=== PATIENT | female | born 1965 | race Caucasian/White ===

== ENCOUNTER → 2020-05-27 08:21 | Outpatient (CLI) | payer OTHER, SELFPAY ==
--- NOTE | ~2020-05-27 | MMUS_ITS ---
EXAMINATION: MM diagnostic coleman BI w erna, US breast BI complete HISTORY: Bilateral breast pain TECHNIQUE: ML, MLO and cc 3-D tomosynthesis images of both breasts were performed and synthetic 2-D i mages were generated. CAD analysis was submitted and interpreted. High resolution bilateral complete breast ultrasound was performed. COMPARISON: 02/27/2019, 02/22/2018, 02/12/2017 and 02/16/2016 bilateral digital screening mammogram exami nations BREAST PARENCHYMAL COMPOSITION: The breasts are heterogeneously dense, which may obscure small masses . FINDINGS: MAMMOGRAPHIC FINDINGS: No interval suspicious mass, architectural distortion, malignant calcification, skin thickening or re traction or significant new or developing density is evident. There are occasional bilateral benign c alcifications. ULTRASOUND: Right breast: No suspicious mass or shadowing is evident. Left breast: 5:00 4 cm from nipple: 3 x 5.5 x 6.4 mm sonolucency, without internal vascularity or posterior shadow ing 6:00 5 cm from nipple: Parallel circumscribed sonolucency measuring 1.5 x 4.6 x 4.9 mm. IMPRESSION: 1. No mammographic or sonographic evidence of malignancy 2. Routine mammographic screening is recommended. BI-RADS Category 2: Benign finding(s). Reviewed, dictated and finalized at location A. IMPRESSION: 1. No mammographic or sonographic evidence of malignancy 2. Routine mammographic screening is recommended. BI-RADS Category 2: Benign finding(s).
--- NOTE | ~2020-05-27 | DEXA_ITS ---
Bone Density Report Name: Cira Moreland Age: 54 Sex: Female Ethnicity: White Date of : 1965 Indication: postmenopausal; screening for osteoporosis; Referring Provider: JOHNNA, DAVID Study: Bone densitometry was performed. Exam Date: May 27, 2020 Accession number: [id number] Bone Density: Region BMD T-score Z-score Classification AP Spine (L1-L4) 0.997 -0.5 0.7 Normal Femoral Neck (Left) 0.831 -0.2 1.0 Normal Total Hip (Left) 1.087 1.2 2.0 Normal Femoral Neck (Right) 0.823 -0.2 0.9 Normal Total Hip (Right) 1.105 1.3 2.1 Normal Total Hip Mean 1.096 1.3 2.1 Normal World Health Organization criteria for BMD impression classify patients as: Normal (T-score at or above -1.0), Osteopenia (T-score between -1.0 and -2.5), or Osteoporosis (T-score at or below -2.5). 10-year Fracture Risk: FRAX not reported because: All T-scores for Spine Total, Hip Total, Femoral Neck at or above -1.0 Previous Exams: Region Exam Age BMD T-score BMD Change BMD Change Date g/cm2 vs Baseline vs Previous AP Spine(L1-L4) 05/27/2020 54 0.997 -0.5 -0.028* -0.012 02/12/2017 51 1.009 -0.3 -0.016 -0.016 12/17/2013 48 1.025 -0.2 Total Hip(Left) 05/27/2020 54 1.087 1.2 0.026 0.037* 02/12/2017 51 1.051 0.9 -0.011 -0.011 12/17/2013 48 1.061 1.0 Total Hip(Right) 05/27/2020 54 1.105 1.3 0.040* 0.083* 02/12/2017 51 1.022 0.7 -0.043* -0.043* 12/17/2013 48 1.064 1.0 *Denotes significance at 95% confidence level, LSC for AP Spine = 0.022 g/cm2, LSC for Total Hip = 0.027 g/cm2 Clinical Information Provided by Patient: Has used the following medications: Vitamin D Patient maximum height was 61.5 Menopause Age: 48 No regular weight bearing exercise Drinks caffeinated beverages Onset of menses at age 12 Number of children 2 Impression: The patient has normal bone mass. No significant bone loss was observed. Discussion: BONE DENSITY IS ABOVE THE MINIMUM DESIRABLE LEVEL AT ALL SKELETAL SITES TESTED. This patient?s bone mineral density is above the minimum desirable level (T-score -1.0 or better) at all sites measured. The patient should follow a healthful lifestyle (good nutrition with adequate calcium and vitamin D, and appropriate weight-bearing exercise). Follow-Up: Consider repeating this study in 5 years or soon
== END ==
PROVIDERS: Visit Provider Nurse Practitioner
DX: N64.4 Mastodynia (principal); Z78.0 Asymptomatic menopausal state
CPT/HCPCS: 76641; 77062; 77066; 77080; G0279

== ENCOUNTER 2020-09-27 12:09 | Outpatient (CLI) | payer OTHER, SELFPAY ==
--- NOTE | ~2020-09-27 | MR_ITS ---
EXAMINATION: MR brain/brain stem wo con DATE: 09/27/2020 13:05 INDICATION: Memory loss. Headache. TECHNIQUE: Magnetic resonance imaging (MRI) of the brain and brainstem was performed without intraven ous contrast. Sequences included sagittal and axial T1-weighted FSE, axial diffusion-weighted FS EPI, axial T2*-weighted GRE, axial T2-weighted FLAIR Propeller, and axial T2-weighted Propeller. Apparent diffusion coefficient (ADC) maps were created. COMPARISON: None. FINDINGS: There is no intracranial hemorrhage, acute infarction, or abnormal intracranial mass lesion . There are areas of nonspecific increased T2-weighted signal intensity in the cerebral white matter, which is within normal limits for the patient's age. The ventricles are normal in size. The paranasa l sinuses are clear. The orbits are normal. There is a trace right mastoid effusion. IMPRESSION: 1. Normal brain. Reviewed, dictated and finalized at location A. D TAX AUDITOR IMPRESSION: 1. Normal brain.
== END 2020-09-27 12:10 | disposition home or self-care (01) ==
PROVIDERS: PCP Physician Assistant; Visit Provider Physician Assistant
DX: R51.9 Headache, unspecified (principal); R41.3 Other amnesia
CPT/HCPCS: 70551

== ENCOUNTER → 2021-05-09 11:20 | Outpatient (CLI) | payer OTHER, SELFPAY ==
--- NOTE | ~2021-05-09 | XR_ITS ---
EXAMINATION: XR chest 2V DATE: 05/09/2021 11:31 INDICATION: Wheezing. TECHNIQUE: Frontal and lateral views of the chest were obtained. COMPARISON: None. FINDINGS: There is mild scarring in the peripheral upper lobes. No pleural effusion or pneumothorax. The heart size is normal. IMPRESSION: 1. Mild scarring in the upper lobes. Reviewed, dictated and finalized at location A.
== END ==
PROVIDERS: Visit Provider Physician Assistant
DX: R06.2 Wheezing (principal); R91.8 Other nonspecific abnormal finding of lung field
CPT/HCPCS: 71046

== ENCOUNTER 2021-07-28 13:10 | Outpatient (CLI) | payer OTHER, SELFPAY ==
--- NOTE | ~2021-07-28 | CT_ITS ---
EXAMINATION: CT diagnostic chest wo con DATE: 07/28/2021 13:39 INDICATION: Wheezing TECHNIQUE: Computed tomography (CT) of the chest was performed without intravenous contrast. The dose -length product (DLP) was 211.42 mGy-cm. Automated exposure control and iterative reconstruction tech nique were employed. COMPARISON: None FINDINGS: There is scarring and volume loss in the upper lobes. The lungs are free of acute opacities . There is no pleural effusion or pneumothorax. No pathologically enlarged thoracic lymph nodes are i dentified. The heart size is normal. There is a moderate-sized hiatal hernia. Calcified coronary cait ry atherosclerosis is noted. IMPRESSION: 1. Scarring and volume loss in the upper lobes without acute cardiopulmonary abnormality. Reviewed, dictated and finalized at location A. IMPRESSION: 1. Scarring and volume loss in the upper lobes without acute cardiopulmonary ab normality.
--- NOTE | ~2021-07-28 | XR_ITS ---
EXAMINATION: XR wrist LT min 3V EXAM DATE: 07/28/2021 13:37 INDICATION: Fell down 6 weeks ago, persistent left wrist pain. TECHNIQUE: Left wrist frontal, frontal with ulnar deviation, oblique and lateral projections obtained and reviewed. There is no prior study for comparison. FINDINGS: Left wrist scapholunate joint space is maintained. No sclerosis to suggest subacute fractur e. There are no acute fractures or dislocations identified. There is no subcutaneous gas. There babatunde ears to be a bandage overlying the wrist. There are no radiopaque foreign bodies. IMPRESSION: 1. Left wrist exam without acute osseous findings. Reviewed, dictated and finalized at location A.
== END 2021-07-28 13:11 | disposition home or self-care (01) ==
LOC: ANHIMG 13:17
PROVIDERS: PCP Physician Assistant; Visit Provider Physician Assistant
DX: R06.2 Wheezing (principal); K44.9 Diaphragmatic hernia without obstruction or gangrene; I25.10 Atherosclerotic heart disease of native coronary artery without angina pectoris; Z87.891 Personal history of nicotine dependence; M25.532 Pain in left wrist
CPT/HCPCS: 71250; 73110

== ENCOUNTER → 2022-08-06 10:00 | Outpatient (CLI) | payer OTHER, SELFPAY ==
--- NOTE | ~2022-08-06 | MM_ITS ---
EXAMINATION: MM screening coleman BI w erna HISTORY: Screening mammogram, family history of breast cancer in her mother. TECHNIQUE: Craniocaudal and mediolateral oblique 3-D tomosynthesis images were obtained and synthetic 2-D images were generated. CAD analysis was submitted and interpreted. COMPARISON: 05/27/2020, 02/27/2019, 02/22/2018 BREAST PARENCHYMAL COMPOSITION: The breasts are heterogeneously dense, which may obscure small masses . FINDINGS: No suspicious mass, calcification, or architectural distortion are identified in either sebas ast to suggest malignancy. There has been no suspicious interval change. IMPRESSION: 1. No mammographic evidence of malignancy. 2. Recommend routine screening mammography in one year. BI-RADS Category 1: Negative Reviewed, dictated and finalized at location A.
== END ==
PROVIDERS: PCP Obstetrics & Gynecology Gynecology; Visit Provider Obstetrics & Gynecology Gynecology
DX: Z12.31 Encounter for screening mammogram for malignant neoplasm of breast (principal)
CPT/HCPCS: 77063; 77067

== ENCOUNTER → 2023-09-05 11:59 | Outpatient (CLI) | payer OTHER, SELFPAY ==
--- NOTE | ~2023-09-05 | MM_ITS ---
EXAMINATION: MM screening coleman BI w erna HISTORY: Screening TECHNIQUE: Craniocaudal and mediolateral oblique 3-D tomosynthesis images were obtained and synthetic 2-D images were generated. CAD analysis was submitted and interpreted. COMPARISON: Comparison to multiple prior studies sequentially, with oldest reviewed study dated or/o h 05/2016. BREAST PARENCHYMAL COMPOSITION: Breast composed of scattered areas of fibroglandular density FINDINGS: Bilateral breast asymmetries are stable. There is no evidence of suspicious mass, calcifica tion, or architectural distortion to suggest malignancy in either breast. There has been no suspiciou s interval change. IMPRESSION: 1. No mammographic evidence of malignancy. 2. Recommend routine screening mammography in one year. BI-RADS Category 1: Negative Reviewed, dictated and finalized at location A. NT ACQUISITION SPECIALIST
== END ==
PROVIDERS: PCP Nurse Practitioner Family; Visit Provider Nurse Practitioner
DX: Z12.31 Encounter for screening mammogram for malignant neoplasm of breast (principal)
CPT/HCPCS: 77063; 77067

== ENCOUNTER → 2023-10-26 11:21 | Outpatient (CLI) | payer OTHER, SELFPAY ==
--- NOTE | ~2023-10-26 | DEXA_ITS ---
Bone Density Report Name: AMARILIS LUGO Age: 58 Sex: Female Ethnicity: White Date of : 1965 Indication: postmenopausal; screening for osteoporosis; height loss; Referring Provider: JOHNNA, DAVID Study: Bone densitometry was performed. Exam Date: October 26, 2023 Accession number: [id number] Bone Density: Region BMD T-score Z-score Classification AP Spine (L1-L4) 0.950 -0.9 0.6 Normal Femoral Neck (Left) 0.840 -0.1 1.2 Normal Total Hip (Left) 1.074 1.1 2.0 Normal Femoral Neck (Right) 0.830 -0.2 1.1 Normal Total Hip (Right) 1.084 1.2 2.1 Normal Total Hip Mean 1.079 1.2 2.1 Normal World Health Organization criteria for BMD impression classify patients as: Normal (T-score at or above -1.0), Osteopenia (T-score between -1.0 and -2.5), or Osteoporosis (T-score at or below -2.5). 10-year Fracture Risk: FRAX not reported because: All T-scores for Spine Total, Hip Total, Femoral Neck at or above -1.0 Previous Exams: Region Exam Age BMD T-score BMD Change BMD Change Date g/cm2 vs Baseline vs Previous AP Spine(L1-L4) 10/26/2023 58 0.950 -0.9 -0.075* -0.047* 05/27/2020 54 0.997 -0.5 -0.028* -0.012 02/12/2017 51 1.009 -0.3 -0.016 -0.016 12/17/2013 48 1.025 -0.2 Total Hip(Left) 10/26/2023 58 1.074 1.1 0.013 -0.014 05/27/2020 54 1.087 1.2 0.026 0.037* 02/12/2017 51 1.051 0.9 -0.011 -0.011 12/17/2013 48 1.061 1.0 Total Hip(Right) 10/26/2023 58 1.084 1.2 0.020 -0.021 05/27/2020 54 1.105 1.3 0.040* 0.083* 02/12/2017 51 1.022 0.7 -0.043* -0.043* 12/17/2013 48 1.064 1.0 *Denotes significance at 95% confidence level, LSC for AP Spine = 0.022 g/cm2, LSC for Total Hip = 0.027 g/cm2 Clinical Information Provided by Patient: Has used the following medications: Vitamin D Patient maximum height was 61.5 Menopause Age: 48 No regular weight bearing exercise Drinks caffeinated beverages Onset of menses at age 12 Number of children 2 Impression: The patient has normal bone mass. The BMD for the AP Spine(L1-L4) decreased, changing by -0.047 since the last DXA exam. Discussion: BONE DENSITY IS ABOVE THE MINIMUM DESIRABLE LEVEL AT ALL SKELETAL SITES TESTED. This patient?s bone mineral density is above the minimum desirable
== END ==
PROVIDERS: PCP Obstetrics & Gynecology Gynecology; Visit Provider Nurse Practitioner
DX: Z78.0 Asymptomatic menopausal state (principal)
CPT/HCPCS: 77080

== ENCOUNTER 2024-12-26 12:55 | Emergency (ER) | payer OTHER, SELFPAY ==
[2024-12-26 12:59] VITALS: BP 131/86; PULSE 67; RESP 16; TEMP 36.4; O2SAT 98
--- NOTE | 2024-12-26 13:49 | ED.SKABFB ---
HPI - Skin/Abscess/Foreign Bdy General Chief complaint: Skin/Abscess/Foreign Body Stated complaint: reaction to shingles shot? shot on Tuesday Time Seen by Provider: 12/26/24 13:49 Focused HPI: This is a 59 year old female that presents to the ER for rash. Reports she [facility] and got a pneumococcal pneumonia vaccine and second shingles vaccine in the left arm. Reports she has had swelling and pain since. Reports yesterday she started to develop a rash. GENERAL: Well-appearing, well-nourished, and in no acute distress. HEAD: Normocephalic, atraumatic. CHEST: Clear to auscultation. ?No respiratory distress. HEART: Regular rate and rhythm.? NEURO: ?Alert and oriented x3. Patient screened in triage and initial orders placed.? ?Additional care and disposition to be based upon?diagnostic testing and treatment. Related Data Allergies Allergy/AdvReac Type Severity Reaction Status Date / Time Penicillins Allergy Intermediate Swelling Verified 12/26/24 12:55 Review of Systems Review of Systems: All systems reviewed & are unremarkable except as noted in HPI and below PMFSH Past Medical History Medical History (Updated 12/26/24 @ 13:58 by Suzanne Patton PA-C) History of diabetes mellitus History of hypothyroidism History of hyperlipidemia History of hypertension Social History Social History (Updated 12/26/24 @ 13:56 by Suzanne Patton PA-C) Smoking status: Never smoker Exam Narrative: GENERAL: Well-appearing, well-nourished, and in no acute distress. HEAD: Normocephalic, atraumatic. EYES: EOMI. EXTREMITIES: Normal range of motion. No edema. SKIN: Warm, dry. Red, macular rash around the injection site NEURO: No focal deficits. Alert and oriented x3. PSYCH: Normal mood and affect Course Course Emergency Course: Patient agrees with plan of care Vital Signs Vital signs: Vital Signs Temperature 97.6 F 12/26/24 12:59 Pulse Rate 67 12/26/24 12:59 Respiratory Rate 16 12/26/24 12:59 Blood Pressure 131/86 12/26/24 12:59 Pulse Oximetry 98 12/26/24 12:59 Temperature 97.6 F 12/26/24 12:59 Pulse Rate 67 12/26/24 12:59 Respiratory Rate 16 12/26/24 12:59 Blood Pressure 131/86 12/26/24 12:59 Pulse Oximetry 98 12/26/24 12:59 MDM - Skin/Abscess/Foreign Bdy MDM Narrative Medical decision making narrative: patient presents the emergency department for rash to the left arm. She recently had her shingles vaccine as well as pneumococcal vaccine in this arm. At this time the reaction does appear to be more allergic. Will be treated as such. She was given symptoms /signs of it being shingles, I did send Valtrex to the pharmacy if she does develop these symptoms. Differential Diagnosis Differential diagnosis: Likely viral exanthem, urticaria, herpes zoster and allergic reaction to drug Critical Care Time Critical Care Time Critical Care Time: No Discharge Plan Discharge Clinical Impression: Rash and nonspecific skin eruption Patient Disposition: Home, Self-Care Condition: Stable Instructions: Acute Rash (ED) Additional Instructions: Return to the emergency department if you experience fever, severe pain, blistering lesions, or any other symptoms that are concerning to you Take a Pepcid and Zyrtec daily. Take steroid taper (methylprednisolone) as prescribed. Benadryl as needed for severe itching. If your rash started to look more like blisters/you have pain, extension of the rash into the arm start taking antiviral (Valacyclovir) Follow-up with your primary care doctor Patient Language: Hebrew Prescriptions: New methylprednisolone 4 mg tablets,dose pack See Rx Instructions .ROUTE .COMPLEX Qty: 21 0RF Rx Instructions: orally per package directions valacyclovir 1 gram tablet 1,000 mg PO Q8H 7 Days Qty: 21 0RF Follow-up/Referrals: Jyotsna Denise MD [Physician] -
--- OUTSIDE RECORDS SUMMARY | 2024-12-26 14:26 | XMS_ITS | Encounter Summary ---
Author Organization [facility] Healthcare Address [address] [place] [address] Care Team Providers Care Test Baker Name Role Phone Magdalena Roa CALL CENTER AGENT Primary Care Provider [phone] Encounter Details Date Type Department Care Team (Late st Contact Info) Description 12/26/2024 Telephone [facility] Medical [facility] Family Medicine [address] [place] [address] Magdalena Roa NP [address] [place] [address] Social History Tobacco Use Types Packs/Day Years Used Date Smoking Tobacco: Former Cigarettes Q uit: 09/17/2007 Smokeless Tobacco: Never Alcohol Use Standard Drinks/Week Comments Never 0 (1 standard drink = 0.6 oz pur e alcohol) AUDIT-C Answer Date Recorded Q1: How often do you have a drink containing alc ohol? Monthly or less 10/15/2024 Q2: How many drinks containi ng alcohol do you have on a typical day when you are drinking? 1 or 2 10/15/2024 Q3: How often do you have si x or more drinks on one occasion? Never 10/15/2024 PHQ-2 Answer Date Recorded PHQ-2 Total Score (If total score is 3 or more points, staff should administer the PHQ-9) 0 10/09/2024 Personal Safety Answer Date Recorded Have you ever been in or are you currently in a harmful physical or emotional relationship or is someone making you feel afraid or unsafe? 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 Will go to Emergency room or Urgent care to have looked at. DMARE FOREMAN documented in this encounter Plan of Treatment Not on file documented as of this encounter Visit Diagnoses Not on filedocumented in this encounter Care Teams Test Baker Relationship Specialty Start Date End Date Magdalena Roa NP [address] [place] [address] PCP - General Internal Medicine 02/04/23 documented as of this encounter
--- OUTSIDE RECORDS SUMMARY | 2024-12-26 14:26 | XMS_ITS | Encounter Summary ---
Author Organization [facility] Healthcare Address [address] [place] [address] Care Team Providers Care Culinary Arts Instructor Name Role Phone Magdalena Roa PULMONOLOGIST Primary Care Provider [phone] Encounter Details Date Type Department Care Team (Late st Contact Info) Description 12/25/2024 Telephone [facility] Medical Group Family Medicine [address] [place] [address] Magdalena Roa NP [address] [place] [address] Social History Tobacco Use Types [...] on file Legal Sex Female 4:52 AM MANAGER COLLEGE Gender Identity Not on file Sexual Orientation Not on file 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 file Not on file Not on file documented as of this encounter Ordered Prescriptions Prescription Sig Dispense Quantity Refills Last Filled Start Date End Date atorvastatin (LIPITOR) 80 mg tabletIndications:Ty pe 2 diabetes mellitus with hyperlipidemia (HCC) Take 0.5 tablets (40 mg total) by mouth daily 90 tablet 1 12/25/2024 documented in this encounter Miscellaneous Notes * Telephone Encounter - Rajani Cobb LPN - 12/25/2024 11:17 AM MANAGER COLLEGE Last fill 09/11/24 Last OV 10/09/24 Next OV 03/05/25 GER COLLEGE documented in this encounter Plan of Treatment Not on file documented as of this encounter Visit Diagnoses Diagnosis Type 2 diabetes mellitus with hyperlipidemia (HCC) documented in this encounter Discontinued Medications Medication Sig Discontinue Reason Start Date End Da te atorvastatin (LIPITOR) 80 mg tabletIndications:Type 2 diabetes mellitus with hyperlipidemia (HCC) Take 0.5 tablets (40 mg total) by mouth daily Reorder 09/11/2024 12/25/2024 documented as of this encounter Care Teams Culinary Arts Instructor Relationship Specialty Start Date End Date Magdalena Roa NP [address] [address] PCP - General Internal Medicine 02/04/23 documented as of this encounter
--- OUTSIDE RECORDS SUMMARY | 2024-12-26 14:26 | XMS_ITS | Encounter Summary ---
Author Organization [facility] Healthcare Address [address] [place] [address] Care Team Providers Care Plant Breeder Scientist Name Role Phone Magdalena Roa NP Primary Care Provider [phone] Encounter Details Date Type Department Care Team (Late st Contact Info) Description 12/24/2024 Results Follow-Up [facility] Neurology [address] [address] Michoacano Galindo MD [address] [place] [address] Social History Tobacco Use Types Packs/Day Years [...] on file Legal Sex Female 4:52 AM THORACIC MEDICINE SPECIALIST Gender Identity Not on file Sexual Orientation Not on file 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
--- OUTSIDE RECORDS SUMMARY | 2024-12-26 14:27 | XMS_ITS | Clinical Summary ---
Author [place] [facility] [place] [address] [facility] Address [facility] [place] [address] Care Team Providers Care Apparatus Cleaner Name Role Phone Magdalena Roa NP Primary Care Provider [phone] Allergies Active Allergy Reactions Criticality Noted Date Comments Venom-Honey Bee Other (See comments) Low 09/03/2024 Blood poisoning Latex Blisters High 10/15/2024 Naproxen Nausea & Vomiting Low 10/05/2024 Penicillins Swelling Medium 09/10/2020 Medications ergocalciferol (VITAMIN D) 50,000 unit capsule Take 1 capsule (50,000 Units total) by mouth once a week Active nitroglycerin (NITROSTAT) 0.[address] 1 tablet (0.4 mg total) under the tongue daily as needed for chest pain 30 tablet 1 024 Active levothyroxine (SYNTHROID) 50 mcg tabletIndications :Acquired hypothyroidism Take 1 tablet (50 mcg total) by mouth daily 90 tablet [address] (CYMBALTA) 60 mg capsuleIndication s:Anxiety Take 1 capsule (60 mg total) by mouth daily 90 capsule [address] (CYMBALTA) 30 mg capsuleIndication s:Anxiety Take 1 capsule (30 mg total) by mouth daily 90 capsule 1 024 Active ezetimibe (ZETIA) 10 mg tabletIndications :Type 2 diabetes mellitus with hyperlipidemia (HCC) Take 1 tablet (10 mg total) by mouth daily 90 tablet 1 11/12/2 024 Active sertraline (ZOLOFT) 25 mg tabletIndications :Anxiety Take 1 tablet (25 mg total) by mouth daily 024 2024 Active amLODIPine (NORVASC) 10 mg tablet Take 1 tablet (10 mg total) by mouth daily 90 tablet 3 025 2025 Active Ozempic 1 mg/dose (4 mg/3 mL) pen injector injectionIndicati ons:Type 2 diabetes mellitus with hyperlipidemia (HCC) INJECT 1MG UNDER THE SKIN EVERY 7 DAYS 3 mL Active atorvastatin (LIPITOR) 80 mg tabletIndications :Type 2 diabetes mellitus with hyperlipidemia (HCC) Take 0.5 tablets (40 mg total) by mouth daily 90 tablet 1 Active atorvastatin (LIPITOR) 80 mg tabletIndications :Type 2 diabetes mellitus with hyperlipidemia (HCC) Take 0.5 tablets (40 mg total) by mouth daily 90 tablet 1 024 2024 Discontinued(R eorder) amLODIPine (NORVASC) 2.5 mg tablet Take 2 tablets (5 mg total) by mouth daily 90 tablet 3 024 2024 Discontinued(R eorder) semaglutide (OZEMPIC) 1 mg/dose (4 mg/3 mL) pen injector injectionIndicati ons:type 2 diabetes mellitus Inject 1 mg under the skin every 7 days 3 mL 1 024 2024 Discontinued naproxen (NAPROSYN) 500 mg tablet TAKE 1 TABLET BY MOUTH TWICE DAILY NEEDED ON A FULL STOMACH OR WITH AN ANTACID 2024 Discontinued(T herapy completed) polyethylene glycol 236-22.74-6.74 -5.86 gram solution TAKE 4000 MLS BY MOUTH ONCE FOR 1 DOSE 2024 Discontinued(T herapy completed) ciprofloxacin (CIPRO) 500 mg tablet Take 1 tablet (500 mg total) by mouth 2 (two) times a day for 10 days 20 tablet 025 2024 Additional Information Patient not taking.Reported on 12/03/2024 Active Problems Problem Noted Date Diagnosed Date Abnormal CBC 10/10/2024 Overview (10/10/2024): Have lab work completed Screening for colon cancer 10/10/2024 Dysuria 10/09/2024 Overview (10/09/2024): no blood in urine. blood has cleared up. Cough with exposure to sever e acute respiratory syndrome coronavirus 2 (SARS-CoV-2) 10/09/2024 Eye swelling, left 09/11/2024 Echocardiogram abnormal 09/03/2024 Assessment & Plan (12/03/2024 12:01 PM COMMUNICABLE DISEASE SPECIALIST): Echocardiogram noted grade 2 LV diastolic dysfunction. Per last note by Dr. Hercules this was reviewed and appreciated to be more indeterminate. Will continue to work on risk factor reduction with weight loss and regular exercise. Assessment & Plan (09/03/2024 11:48 AM COMMUNICABLE DISEASE SPECIALIST): Echocardiogram noted grade 2 LV diastolic dysfunction. Per last note by Dr. Hercules this was reviewed and appreciated to be more indeterminate. Will continue to work on risk factor reduction with weight loss and regular exercise. CKD (chronic kidney disease) stage 3, GFR 30-59 ml/min 08/13/2024 HODGSON (dyspnea on exertion) 01/20/2024 Assessment & Plan (01/20/2024 10:43 AM CDT): Admits to shortness of breath with certain exertional activities such as walking up two flights of stairs. Unclear if this is an anginal equivalent. EKG today with low voltage. Cardiac risk factors include age, obesity, HTN, HLD, T2DM and smoking hx. In light of symptoms and cardiac risk factors will proceed with nuclear stress echo to evaluate for any structural abnormalities or ischemia. Uterovaginal prolapse 12/16/2023 Sensory urge incontinence 12/16/2023 Stress incontinence 12/16/2023 Moderate episode of recurrent major depressive d isorder 08/15/2023 Overview (08/15/2023): Continue Cymbalta 90 mg daily. Add Wellbutrin 75 mg twice daily for increase depression without SI or HI Hematuria 06/20/2023 Overview (06/20/2023): Hematuria has dissipated. Protein present in urine. You still have pressure in your suprapubic area. Take Cipro x3 days Type 2 diabetes mellitus with hyperlipidemia 04/2023 Weight loss 01/21/2022 Assessment & Plan (04/29/2022 7:17 AM CDT): Intentional. Encouraged continued attempts at heart healthy diet, exercise 4x/week for 30min each session. Assessment & Plan (01/21/2022 12:41 PM CDT): Congratulated on weight loss. Will increase Topamax to 50 mg twice daily. Encouraged continued attempts at a heart healthy diet, exercise 4 times per week for 30 minutes each session. Fatigue 05/08/2021 Assessment & Plan (05/08/2021 1:16 PM CDT): Fasting labs entered, will notify patient of results as available Chest pain 04/19/2021 Assessment & Plan (12/03/2024 12:02 PM COMMUNICABLE DISEASE SPECIALIST): Stress induced chest pain with a negative stress echo on 01/25/2024. She completed a trial with sublingual nitro with improvement in her chest pain. Transitioned to CCB last visit with improvement in frequency of chest pain. Increase Amlodipine to 10 mg daily. She will keep a blood pressure diary and we will touch base in 1-2 weeks to review. Assessment & Plan (09/03/2024 11:50 AM COMMUNICABLE DISEASE SPECIALIST): Stress induced chest pain with a negative stress echo on 01/25/2024. She completed a trial with sublingual nitro once with improvement in her chest pain. Will stop HCTZ and replacing with amlodipine 2.5 mg daily to assess for improvement in chest pain episodes. She will keep a blood pressure diary and we will touch base in 1-2 weeks to review results and symptoms. Will increase as tolerated. Assessment & Plan (01/27/2024 10:27 AM CDT): Atypical chest pain. EKG today with no ischemic findings. Cardiac risk factors include age, obesity, HTN, HLD, T2DM and smoking hx. In light of symptoms and cardiac risk factors will proceed with nuclear stress echo to evaluate for any structural abnormalities or ischemia. ADDENDUM: Negative stress echo for myocardial ischemia. BMI 29.0-29.9,adult 10/27/2020 Assessment & Plan (10/09/2024 11:42 AM COMMUNICABLE DISEASE SPECIALIST): Discussed the patient's BMI. The BMI is above average. BMI management plan is completed. BMI Follow-up includes: nutrition counseling, exercise counseling and education provided. Snoring 10/27/2020 Assessment & Plan (12/11/2024 9:57 AM COMMUNICABLE DISEASE SPECIALIST): The patient presents with snoring and daytime fatigue. Per her request, I have ordered a home sleep test and she will follow up here in 4 months. Assessment & Plan (10/27/2020 12:47 PM COMMUNICABLE DISEASE SPECIALIST): Will refer for sleep study Sleep disturbance 10/27/2020 Assessment & Plan (10/27/2020 12:47 PM COMMUNICABLE DISEASE SPECIALIST): Will refer for sleep study Breast cancer screening by mammogram 09/10/2020 Assessment & Plan (09/10/2020 11:38 AM COMMUNICABLE DISEASE SPECIALIST): Retrieve records from previous pcp. Hypothyroidism 09/10/2020 Assessment & Plan (04/29/2022 7:17 AM CDT): Continue medication same dosing at this time, refill as needed. Assessment & Plan (01/21/2022 12:40 PM CDT): Labs entered, continue medications the same time Assessment & Plan (05/08/2021 1:15 PM CDT): Fasting labs entered, will notify patient of results as available Assessment & Plan (10/27/2020 12:46 PM COMMUNICABLE DISEASE SPECIALIST): Will repeat labs, continue medication same at this time Assessment & Plan (09/10/2020 11:39 AM COMMUNICABLE DISEASE SPECIALIST): Fasting labs entered, will notify patient of results as available Continue medication same at this time. Vitamin D deficiency 09/10/2020 Assessment & Plan (10/27/2020 12:46 PM COMMUNICABLE DISEASE SPECIALIST): Will repeat labs, continue medication same at this time Assessment & Plan (09/10/2020 11:39 AM COMMUNICABLE DISEASE SPECIALIST): Fasting labs entered, will notify patient of results as available Continue medication same at this time. Hypertension associated with diabetes 09/10/2020 Overview (08/15/2023): Continue blood pressure medicine daily as directed Assessment & Plan (12/03/2024 12:00 PM COMMUNICABLE DISEASE SPECIALIST): Above goal at home. Increase Amlodipine to 10 mg daily. She will keep a blood pressure diary and we will touch base in 1-2 weeks to review. Assessment & Plan (09/03/2024 11:49 AM COMMUNICABLE DISEASE SPECIALIST): She will stop hydrochlorothiazide and we with replace with amlodipine for both blood pressure management and to assess for improvement in chest pain. She will keep a blood pressure diary and we will touch base in 1-2 weeks and adjust as needed. Assessment & Plan (01/20/2024 10:40 AM CDT): Slightly above goal. Well controlled at previous visits per review of her chart. Has not taken her anti-hypertensive medications this am. Admits to being a bit anxious about appointment. Continue hydrochlorothiazide 25 mg daily. Advised her to take her medications when she can. Assessment & Plan (04/29/2022 7:16 AM CDT): Patient advised to continue medications the same at this time. They will monitor home bp with goal 120-130/80s. Fasting labs entered, will notify patient of results as available Assessment & Plan (01/21/2022 12:40 PM CDT): Patient advised to continue medications the same at this time. They will monitor home bp with goal 120-130/80s. Fasting labs entered, will notify patient of results as available Assessment & Plan (09/10/2020 11:39 AM COMMUNICABLE DISEASE SPECIALIST): Fasting labs entered, will notify patient of results as available Continue medication same at this time. Hyperlipidemia 09/10/2020 Assessment & Plan (12/03/2024 12:00 PM COMMUNICABLE DISEASE SPECIALIST): Continue atorvastatin 80 mg daily and zetia 10 mg daily. Planning to repeat with PCP. Assessment & Plan (09/03/2024 11:47 AM COMMUNICABLE DISEASE SPECIALIST): Continue atorvastatin 80 mg daily. Assessment & Plan (01/20/2024 10:40 AM CDT): Managed by PCP. Continue Atorvastatin and Zetia. Assessment & Plan (04/29/2022 7:17 AM CDT): Advised patient to follow a heart healthy diet, low in red meat and pork, and increase veggies. Advised exercise 4x/week for 30min each session. Fasting labs entered, will notify patient of results as available Assessment & Plan (01/21/2022 12:40 PM CDT): Fasting labs entered, will notify patient of results as available Continue lipitor same at this time Encouraged heart healthy diet, exercise 4x/week for 30min each session Assessment & Plan (09/10/2020 11:39 AM COMMUNICABLE DISEASE SPECIALIST): Fasting labs entered, will notify patient of results as available Continue medication same at this time. Memory changes 09/10/2020 Assessment & Plan (10/03/2020 12:35 PM COMMUNICABLE DISEASE SPECIALIST): We reviewed recent normal mri of head. Advised referral to neurology for further evaluation and treatment. Assessment & Plan (09/10/2020 11:38 AM COMMUNICABLE DISEASE SPECIALIST): Will taper/discontinue wellbutrin. Will order mri of head to evaluate further. Chronic intractable headache 09/10/2020 Assessment & Plan (10/27/2020 12:46 PM COMMUNICABLE DISEASE SPECIALIST): Wants to hold/not schedule neuro referral at this time. Will continue medication the same. Will refer for sleep study. Assessment & Plan (10/03/2020 12:36 PM COMMUNICABLE DISEASE SPECIALIST): We reviewed recent normal mri of head. Advised referral to neurology for further evaluation and treatment. We discussed adding inderal or other daily medication for prevention, patient wants to start with changing the lexapro first. Assessment & Plan (09/10/2020 11:39 AM COMMUNICABLE DISEASE SPECIALIST): Will evaluate further with mri of head Anxiety 09/10/2020 Assessment & Plan (04/29/2022 7:16 AM CDT): We will increase her cymbalta to 90mg daily. She was advised to notify the office over the next 4w - if ineffective will try adding buspar tid. Assessment & Plan (12/10/2021 11:48 AM COMMUNICABLE DISEASE SPECIALIST): Continue with cymbalta 60mg daily Add bid/prn xanax - advised of potential addictiveness, she expressed understanding. We discussed changing cymbalta or adding buspar tid over the coming month if needing xanax routinely. Assessment & Plan (10/15/2021 3:24 PM COMMUNICABLE DISEASE SPECIALIST): Increase cymbalta from 60mg every day to 90mg every day Assessment & Plan (09/17/2021 1:37 PM COMMUNICABLE DISEASE SPECIALIST): Stable, continue meds same at this time Assessment & Plan (05/08/2021 1:17 PM CDT): Will increase cymbalta. Assessment & Plan (10/27/2020 12:46 PM COMMUNICABLE DISEASE SPECIALIST): Continue medication same Assessment & Plan (10/03/2020 12:37 PM COMMUNICABLE DISEASE SPECIALIST): Taper lexapro every other day x 6 days, then discontinue. Will start cymbalta when taper is finished. We discussed gi workup pending resolution of loose stools. Will also retrieve consult notes from previous pcp to determine date and results of last cscope. Assessment & Plan (09/10/2020 11:40 AM COMMUNICABLE DISEASE SPECIALIST): Taper wellbutrin 1 tab every other day x 3 days, then discontinue. Will start lexapro at that time. Resolved Problems Problem Noted Date Diagnosed Date Resolved Date Pre-op evaluation 01/20/2024 02/28/2024 Assessment & Plan (01/27/2024 10:29 AM CDT): Patient planning to undergo hysterectomy on 02/14/24. She presents with atypical chest pain as well as HODGSON with two flights of stairs. EKG today with no acute findings. Risk factors for CAD include age, obesity, HTN, HLD, T2DM and smoking hx. In light of symptoms and cardiac risk factors will proceed with nuclear stress echo to evaluate for any structural abnormalities or ischemia prior to surgical procedure. Will provide further recommendations following stress echo results. ADDENDUM: Negative stress echo for myocardial ischemia. Can perform > 4 METs Patient has a RCRI score of 0, Class I risk (3.9 % thirty day risk of , [place] or cardiac arrest). No further cardiac testing recommended at this time. BMI 31.0-31.9,adult 08/09/2022 02/05/20 23 Assessment & Plan (08/09/2022 8:53 AM CDT): Obesity is unchanged. Discussed the patient's BMI. The BMI is above average. BMI management plan is completed. BMI Follow-up includes: nutrition counseling, exercise counseling and education provided. Obesity (BMI 30-39.9) 08/09/20222023 Assessment & Plan (08/09/2022 8:53 AM CDT): Obesity is unchanged. Discussed the patient's BMI. The BMI is above average. BMI management plan is completed. BMI Follow-up includes: nutrition counseling, exercise counseling and education provided. [place] eye disease of left eye 06/14/2022 08/09/2022 Assessment & Plan (06/14/2022 12:29 PM CDT): Will initiate claritin and eye drops Advised f/u in next week if not improving, sooner if worsening or new symptoms develop. Advised her to not use contacts until this has resolved, and to use a new batch of contacts when resuming these. Subacute cough 02/08/2022 02/04/2023 Lower respiratory infection 02/08/2022 04/28/2022 Assessment & Plan (02/08/2022 5:08 PM CDT): Will initiate zpack and mdp She was encouraged to continue with advair bid and prn proventil hfa She was advised to contact the office if symptoms are not improving in the next 72h, sooner if worsening. Need for influenza vaccination 09/17/2021 01/21/2022 De Quervain's disease (radia l styloid tenosynovitis) 08/19/2021 08/09/2022 BMI 34.0-34.9,adult 07/28/2021 01/22/20 Assessment & Plan (10/15/2021 3:24 PM COMMUNICABLE DISEASE SPECIALIST): Increase metformin to 500mg bid Encouraged heart healthy diet, exercise 4x/week for 30min each session Assessment & Plan (07/28/2021 8:14 AM CDT): Obesity is unchanged. Discussed the patient's BMI. The BMI is above average. BMI management plan is completed. BMI Follow-up includes: nutrition counseling, exercise counseling and education provided. Wrist pain, left 07/28/2021 08/09/2022 Assessment & Plan (07/28/2021 12:51 PM CDT): Xray left wrist, will notify of results as available Wrapped in jasiel wrap today, will keep wrapped during the day, management further pending xray results She will use ibuprofen 600mg tid-qid prn pain Obesity (BMI 30-39.9) 05/08/20212021 Assessment & Plan (01/21/2022 12:41 PM CDT): Congratulated on weight loss. Will increase Topamax to 50 mg twice daily. Encouraged continued attempts at a heart healthy diet, exercise 4 times per week for 30 minutes each session. Assessment & Plan (12/10/2021 11:49 AM COMMUNICABLE DISEASE SPECIALIST): Discontinue metformin Will initiate topamax 25mg bid for appetite suppression. She was advised that this is an off label utilization and due to concurrent cymbalta she has a risk for serotonin syndrome. She expressed understanding and desire to proceed. She will f/u in 4w for weight management, sooner as needed. Assessment & Plan (10/15/2021 3:24 PM COMMUNICABLE DISEASE SPECIALIST): Increase metformin to 500mg bid Encouraged heart healthy diet, exercise 4x/week for 30min each session Assessment & Plan (09/17/2021 1:38 PM COMMUNICABLE DISEASE SPECIALIST): Obesity is unchanged. Discussed the patient's BMI. The BMI is above average. BMI management plan is completed. BMI Follow-up includes: nutrition counseling, exercise counseling and education provided. Will start on metformin bid low dose. Encouraged low antonio diet, exercise 4x/week for 30min each session. Discussed attempts at loss of 4lbs/mo. Assessment & Plan (07/28/2021 8:14 AM CDT): Obesity is unchanged. Discussed the patient's BMI. The BMI is above average. BMI management plan is completed. BMI Follow-up includes: nutrition counseling, exercise counseling and education provided. Assessment & Plan (06/16/2021 8:37 AM CDT): Obesity is unchanged. Discussed the patient's BMI. The BMI is above average. BMI management plan is completed. BMI Follow-up includes: nutrition counseling, exercise counseling and education provided. Assessment & Plan (05/08/2021 9:08 AM CDT): Obesity is unchanged. Discussed the patient's BMI. The BMI is above average. BMI management plan is completed. BMI Follow-up includes: nutrition counseling, exercise counseling and education provided. BMI 33.0-33.9,adult 05/08/2021 08/09/20 22 Assessment & Plan (04/29/2022 7:16 AM CDT): Discussed the patient's BMI. Continue with topamax bid, she declines increase at this time. The BMI is above average. BMI management plan is completed. BMI Follow-up includes: nutrition counseling, exercise counseling and education provided. Assessment & Plan (06/16/2021 8:37 AM CDT): Obesity is unchanged. Discussed the patient's BMI. The BMI is above average. BMI management plan is completed. BMI Follow-up includes: nutrition counseling, exercise counseling and education provided. Assessment & Plan (05/08/2021 9:08 AM CDT): Obesity is unchanged. Discussed the patient's BMI. The BMI is above average. BMI management plan is completed. BMI Follow-up includes: nutrition counseling, exercise counseling and education provided. Wheezing 05/08/2021 04/28/2022 Assessment & Plan (06/16/2021 6:02 PM CDT): We reviewed cxr Will order ct chest for further evaluation She declines pulm consult at this time She will continue to not smoke Add advair 250 1 puff bid routine Assessment & Plan (05/08/2021 1:16 PM CDT): Cxr, will notify of results as available Will start on proventil hfa. She was advised to notify office if not improving or if worsening over the coming week. Need for diphtheria-tetanus- pertussis (Tdap) vaccine 09/10/2020 01/21/2022 Assessment & Plan (09/10/2020 11:38 AM COMMUNICABLE DISEASE SPECIALIST): tdap today Encounters Date Type Department Care Team Description 12/26/2024 Telephone [facility] Family Medicine [address] [place] [address] [place] [phone] Magdalena Roa NP 12/25/2024 Telephone [facility] Medicine [address] [facility] [address] [place] [address] [place] [phone] Magdalena Roa NP 12/24/2024 Results Follow-Up [facility] Neurology [address] [place] [phone] Michoacano Galindo MD 12/22/2024 2:29 PM COMMUNICABLE DISEASE SPECIALIST - 12/22/2024 11:59 PM COMMUNICABLE DISEASE SPECIALIST Hospital Encounter [facility] MRI [address] [place] [address] Memory changes Discharge Disposition: Discharge to home or self care 12/11/2024 9:30 AM COMMUNICABLE DISEASE SPECIALIST Office Visit [facility] Pulmonary [address] [place] [phone] Eulogio Yost MD Poor sleep; Snoring 12/03/2024 11:00 AM COMMUNICABLE DISEASE SPECIALIST Office Visit [facility] Cardiology [facility] 8th [place] [address] [place] [phone] Nima Jacques NP Chest pain, unspecified type (Primary Dx); Hypertension associated with diabetes (HCC); Mixed hyperlipidemia; Echocardiogram abnormal 11/29/2024 3:00 PM COMMUNICABLE DISEASE SPECIALIST Clinical Support [facility] Medicine [address] [place] [address] [place] [phone] Dysuria (Primary Dx) 11/19/2024 Telephone [facility] Neurology [address] [place] [phone] Michoacano Galindo MD Test Results (RESULTS ) 11/16/2024 10:45 AM COMMUNICABLE DISEASE SPECIALIST Lab [facility] Medical Office [address] [place] [phone] Memory changes 11/16/2024 10:00 AM COMMUNICABLE DISEASE SPECIALIST Office Visit [facility] Neurology [address] [place] [phone] Michoacano Galindo MD Poor sleep (Primary Dx); Memory changes; Snoring 11/01/2024 Telephone [facility] Medicine [address] [place] [address] [place] [phone] Magdalena Roa NP Med Refill 10/15/2024 1:00 PM COMMUNICABLE DISEASE SPECIALIST - 10/15/2024 1:30 PM COMMUNICABLE DISEASE SPECIALIST Surgery [facility] GI Lab [address] [place] [phone] Deshaun West MD COLON BIOPSY 10/15/2024 12:52 PM COMMUNICABLE DISEASE SPECIALIST Anesthesia Event [facility] GI Lab [address] [place] [phone] Cheri Cardenas MD Cannon, James J., MD 10/15/2024 11:59 AM COMMUNICABLE DISEASE SPECIALIST - 10/15/2024 2:27 PM COMMUNICABLE DISEASE SPECIALIST Hospital Encounter [facility] GI Lab [address] [place] [phone] Deshaun West MD Screening for colon cancer Discharge Disposition: Discharge to home or self care 10/10/2024 Orders Only [facility] Gastroenterology at [place] [id number] [facility] [address] [place] [phone] Deshaun West MD Screening for colon cancer (Primary Dx) 10/09/2024 11:30 AM COMMUNICABLE DISEASE SPECIALIST Office Visit [facility] Internal Medicine at [place] [address] [place] [address] Rd [address] [place] [phone] Magdalena Roa NP Cough with exposure to severe acute respiratory syndrome coronavirus 2 (SARS-CoV-2) (Primary Dx); BMI 29.0-29.9,adult; Dysuria; Anxiety; Memory changes; Abnormal CBC 10/06/2024 12:54 AM COMMUNICABLE DISEASE SPECIALIST - 10/06/2024 2:30 AM COMMUNICABLE DISEASE SPECIALIST Emergency [facility] Emergency Department [address] [place] [phone] Krishna Parham DO Microscopic hematuria (Primary Dx); Contusion of left knee, initial encounter; Traumatic ecchymosis Discharge Disposition: Discharge to home or self care 10/05/2024 Nurse Triage [facility] at [place] [address] [place] [address] Magdalena Roa NP from Last 3 Months Immunizations Immunization Administration Dates Next Due Flucelvax Influenza Quad 07/31/2020 Influenza, Quadrivalent, Spl it, Preservative Free, Intramuscular 08/15/2023,09/17/2021 Influenza, Unspecified 08/24/2024,2023(Deferred: Patient Refused),12/28/2022(Deferred: Patient Refused),12/01/2021(Deferred: Patient Refused) Moderna SARS-CoV-2 Monovalen t Vaccination (12+ YRS) 10/07/2021,01/10/2021,12/13/2020 Td, adsorbed 12/05/1998 Tdap 09/10/2020 Surgical History Surgery Date Site/Laterality Comments TUBAL LIGATION TONSILECTOMY, ADENOIDECTOMY, BILATERAL MYRINGOTOMY AND TUBES ROBOTIC ASSISTED HYSTERECTOMY 02/14/2024 BSO BLADDER SURGERY Medical History Medical History Date Comments Hypertension Thyroid disease Type 2 diabetes mellitus wit h hyperglycemia, without long-term current use of insulin (HCC) Hyperlipidemia GERD (gastroesophageal reflux disease) Hypothyroidism Family History Medical History Relation Name Comments Heart disease Brother 2 antonella Brain cancer Father Lung cancer Father Throat cancer Father's Brother Diabetes Maternal Grandfather Brain cancer Maternal Grandmother Melanoma Maternal Grandmother Breast cancer Mother Diabetes Mother Pulmonary embolism Mother COPD Sister 1 briseida Hyperlipidemia Sister 1 briseida Heart disease Sister 2 tk Hyperlipidemia Sister 2 tk Hyperlipidemia Sister 3 marcus Brain cancer Sister 4 lucy Lung cancer Sister 4 lucy Relation Name Status Comments Brother 1 an Alive Brother 2 antonella Father Father's Brother Maternal Grandfather Maternal Grandmother Mother Sister 1 briseida Sister 2 tk Alive Sister 3 marcus Alive Sister 4 lucy Social History Tobacco Use Types Packs/Day Years [...] on file Legal Sex Female 4:52 AM COMMUNICABLE DISEASE SPECIALIST Gender Identity Not on file Sexual Orientation Not on file 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 Not on file Not on file Not on file Obstetrics History Last Filed Vital Signs Vital Sign Reading Time Taken Comments Blood Pressure 126/68 12/11/2024 9:25 AM COMMUNICABLE DISEASE SPECIALIST Pulse 70 12/11/2024 9:25 AM COMMUNICABLE DISEASE SPECIALIST Temperature 36.9 C (98.4 F) 12/11/2024 9:25 AM COMMUNICABLE DISEASE SPECIALIST Respiratory Rate 18 12/11/2024 9:25 AM COMMUNICABLE DISEASE SPECIALIST Oxygen Saturation 94% 12/11/2024 9:25 AM COMMUNICABLE DISEASE SPECIALIST Inhaled Oxygen Concentration - - Weight 70.3 kg (155 lb) 12/03/2024 10:47 AM COMMUNICABLE DISEASE SPECIALIST Height 154.9 cm (5' 1 ) 12/11/2024 9:25 AM COMMUNICABLE DISEASE SPECIALIST Body Mass Index 29.29 12/03/2024 10:47 AM COMMUNICABLE DISEASE SPECIALIST Plan of Treatment Health Maintenance Due Date Last Done Comments Dilated Eye Exam 1965 Foot Exam 1965 Hepatitis B Screening 1981 Pneumococcal vaccine <65 (1 of 2 - PCV) 1982 Zoster Vaccine (1 of 2) 2013 Covid-19 Vaccine (4 - 2023-2 5 season) 2024 10/07/2021, 01/10/2021, 12/13/2020 Breast Cancer Screening-Mammogram 09/05/2024 023, 04/17/2021 Regular Well Visit/Exam 18-64 02/09/2025 02/10/2024, 12/28/2022 Hemoglobin A1C 02/11/2025 08/13/2024, 0207/2024, 01/29/2023, Additional history exists Albumin Creatinine Ratio, Urine 08/13/2025 4, 12/29/2023 Lipid Panel 08/13/2025 08/13/2024, 12/02, 01/29/2023, Additional history exists eGFR 10/05/2025 10/05/2024, 07/31, 12/29/2023, Additional history exists Depression Screening 10/09/2025 10/09/2024, 09/11/2024, 02/10/2024, Additional history exists DTaP/Tdap/Td Vaccine (2 - Td or Tdap) 09/10/2030 09/10/2020, 12/05/1998 Colon Cancer Screening-Colonoscopy 10/15/20342023, 03/19/2014 Hepatitis C Screening Completed 01/29/2023 Influenza Vaccine Completed 08/24/2024, , 09/17/2021, Additional history exists Medical Devices Implanted Type Area Intelligence Officer Device Identifier Shelf Expiration Date Model / Serial / Lot [place] Subimage Oscar Upsylon 35.4cm Elongation Profile Lightweight Large Pore Low [id number] - [id number] Implanted:Qty: 1 on 02/14/2024 by Lam Munoz MD at [facility] Mesh N/A: Pelvis [employer] Oscar 07/30/2026 [id number] / / [id number] [employer] Sling Urinary Incontinence Female Stress Short Desara Blue Antonio-Ds01bs - [id number] Implanted:Qty: 1 on 02/14/2024 by Lam Munoz MD at [facility] N/A: Pelvis [employer] 07/21/2026 [id number] / / [id number] Procedures Procedure Name Priority Date/Time Associated Diagnosis Comments MRI BRAIN WO CONTRAST Schedule Routine, Read Routine (OP Routine) 12/22/2024 3:09 PM COMMUNICABLE DISEASE SPECIALIST Memory changes POCT URINALYSIS DIPSTICK Routine 11/29/2024 3:33 PM COMMUNICABLE DISEASE SPECIALIST Dysuria URINE CULTURE Routine 11/29/2024 3:21 PM COMMUNICABLE DISEASE SPECIALIST Dysuria VITAMIN B12 Routine 11/16/2024 11:03 AM COMMUNICABLE DISEASE SPECIALIST Memory changes POCT GLUCOSE DEVICE Routine 10/15/2024 1 :34 PM COMMUNICABLE DISEASE SPECIALIST SURGICAL PATHOLOGY Routine 10/15/2024 1:02 PM COMMUNICABLE DISEASE SPECIALIST Screening for colon cancer COLONOSCOPY 10/15/2024 12:54 PM COMMUNICABLE DISEASE SPECIALIST COLON BIOPSY 10/15/2024 12:54 PM COMMUNICABLE DISEASE SPECIALIST Screening for colon cancer POCT GLUCOSE DEVICE Routine 10/15/2024 12:37 PM COMMUNICABLE DISEASE SPECIALIST CBC WITH AUTO DIFFERENTIAL Routine 10/09/2024 1:16 PM COMMUNICABLE DISEASE SPECIALIST Abnormal CBC POC INFLUENZA A/B, COVID-19 ANTIGEN Routine 10/09/2024 11:59 AM COMMUNICABLE DISEASE SPECIALIST Cough with exposure to severe acute respiratory syndrome coronavirus 2 (SARS-CoV-2) POCT URINALYSIS DIPSTICK Routine 10/09/2024 11:57 AM COMMUNICABLE DISEASE SPECIALIST Dysuria POCT GLUCOSE DEVICE Routine 10/06/2024 1 :15 AM COMMUNICABLE DISEASE [address] RECON LUMBAR SPINE WO CONTRAST ED 10/06/2024 1:08 AM COMMUNICABLE DISEASE SPECIALIST CT CHEST ABDOMEN PELVIS W CONTRAST ED 10/06/2024 1:08 AM COMMUNICABLE DISEASE SPECIALIST XR KNEE LEFT 3 VIEWS ED 10/06/2024 12:26 AM COMMUNICABLE DISEASE SPECIALIST EGFR STAT 10/05/2024 11:58 PM COMMUNICABLE DISEASE SPECIALIST URINALYSIS, MICROSCOPIC ONLY STAT 10/05/2024 11:58 PM COMMUNICABLE DISEASE SPECIALIST DIFFERENTIAL AUTO STAT 10/05/2024 11:58 PM COMMUNICABLE DISEASE SPECIALIST CBC WITH AUTO DIFFERENTIAL STAT 10/05/2024 11:58 PM COMMUNICABLE DISEASE SPECIALIST COMPREHENSIVE METABOLIC PANEL STAT 10/05/2024 11:58 PM COMMUNICABLE DISEASE SPECIALIST URINALYSIS AND REFLEX TO MICROSCOPIC AND CULTURE STAT 10/05/2024 11:58 PM COMMUNICABLE DISEASE SPECIALIST HEMOGLOBIN A1C Routine 08/13/2024 10:45 AM CDT Hypertension associated with diabetes (HCC) Type 2 diabetes mellitus with hyperlipidemia (HCC) LIPID PANEL Routine 08/13/2024 10:45 AM CDT Type 2 diabetes mellitus with hyperlipidemia (HCC) ALBUMIN CREATININE RATIO, URINE Routine 08/13/2024 10:45 AM CDT Hypertension associated with diabetes (HCC) HEPATITIS C ANTIBODY Routine 01/29/2023 11:12 AM CDT Encounter for hepatitis C screening test for low risk patient DIAGNOSTIC MAMMOGRAM BILATERAL W GERSON Schedule Routine, Read Routine (OP Routine) 04/17/2021 9:58 AM CDT Breast pain in female from Last 3 Months or Most Recently Relevant to Health Maintenance Results * MRI Brain WO Contrast (12/22/2024 3:09 PM COMMUNICABLE DISEASE SPECIALIST) Anatomical Region Laterality Modality Head and Neck N/A Magnetic Resonan ce 12/24/2024 10:1 2 AM COMMUNICABLE DISEASE SPECIALIST Narrative 12/24/2024 10:18 AM COMMUNICABLE DISEASE SPECIALIST EXAM DESCRIPTION: MRI BRAIN WO CONTRAST REASON FOR STUDY: Memory Loss Memory loss f/6 months. TECHNIQUE: Multiplanar imaging includes non-contrasted T1, T2, FLAIR, and diffusion with ADC map sequences. Additional sequence(s) sensitive to blood products. Images stored on PACS. COMPARISON: No prior studies are available for comparison at time of this dictation. FINDINGS: No acute infarction. No evidence of acute or chronic hemorrhage identified. No mass effect, mass or midline shift. The ventricles are normal in size. Brain volume appears within normal limits for patient age. Minimal T2 FLAIR hyperintensity of the periventricular white matter is nonspecific. Minimal FLAIR hyperintensity within the bilateral walter this is nonspecific but likely due to chronic small vessel ischemic disease. Punctate foci of FLAIR hyperintensity in the bilateral basal ganglia likely from chronic small vessel ischemic disease. The major flow voids are within normal limits. The pituitary gland is within normal limits for patient age. The calvarium is unremarkable. The orbits are unremarkable. The paranasal sinuses are well aerated. The mastoid air cells are well aerated. Prominent adenoid tonsils are likely reactive. IMPRESSION: No finding identified to explain patient's memory loss. Findings of mild cerebral small vessel disease. THIS IS AN ELECTRONICALLY VERIFIED FINAL REPORT 12/24/2024 10:18 AM - Electronically signed by Dago Medrano M.D., MM T: Report ID: [id number] Reading Location: [id number] Procedure Note Dago Medrano MD - 12/24/2024 EXAM DESCRIPTION: MRI BRAIN WO CONTRAST REASON FOR STUDY: Memory Loss Memory loss f/6 months. TECHNIQUE: Multiplanar imaging includes non-contrasted T1, T2, FLAIR, and diffusion with ADC map sequences. Additional sequence(s) sensitive [employer]. Images stored on PACS. COMPARISON: No prior studies are available for comparison at time of this dictation. FINDINGS: No acute infarction. No evidence of acute or chronic hemorrhageidentified. No mass effect, mass or midline shift. The ventricles are normal in size. Brain volume appears within normallimits for patient age. Minimal T2 FLAIR hyperintensity of the periventricular white matter is nonspecific. Minimal FLAIR hyperintensity within the bilateral walter this is nonspecific but likely due to chronic small vessel ischemic disease. Punctate foci of FLAIR hyperintensity in the bilateral basal ganglia likely from chronic small vessel ischemic disease. Themajor flow voids are within normal limits. The pituitary gland is withinnormal limits for patient age. The calvarium is unremarkable. The orbits are unremarkable. Theparanasal sinuses are well aerated. The mastoid air cells are well aerated. Prominent adenoid tonsils are likely reactive. IMPRESSION: No finding identified to explain patient's memory loss. Findings of mild cerebral small vessel disease. THIS IS AN ELECTRONICALLY VERIFIED FINAL REPORT 12/24/2024 10:18 AM - Electronically signed by Dago Medrano M.D. MM T: Report ID: [id number] Reading Location: [id number] Michoacano Galindo MD IMG MRI PROCEDURES Final Resul t * (ABNORMAL) POCT urinalysis dipstick (11/29/2024 3:33 PM COMMUNICABLE DISEASE SPECIALIST) Pathologist [facility] Color, Urine, POC Natalie Clarity, ur, POC Cloudy(A) Clear Glucose, ur, POC Negative Negative MG/DL Bilirubin, ur, POC Negative Negative, Small, Moderate, Large Ketones, ur, POC Negative Negative Specific [place], POC 1.030 1.003 - 1.030 Blood, ur, POC Large(A) Negative pH, ur, POC 5.5 5.0 - 8.0 Protein, ur, POC 100.(A) Negative Urobilinogen, urine, POC 0.2 0.2 - 1.0 mg/dL Nitrite, ur, POC Negative Negative Leukocytes, ur, POC Small(A) Negative Lot Number cloudy Urine 11/29/2024 3:33 PM COMMUNICABLE DISEASE SPECIALIST Magdalena Roa CEMENT MASON APPRENTICE POINT OF CARE TEST ORDERABLES Final Result * Urine culture Urine, clean voided (11/29/2024 3:21 PM COMMUNICABLE DISEASE SPECIALIST) [facility] Comment: CULTURE, URINE, ROUTINE Micro Number: [id number] Test Status: Final Specimen Source: Not given Specimen Quality: Adequate Result: No Growth Urine, clean voided 11/29/2024 3:21 PM COMMUNICABLE DISEASE SPECIALIST 11/30/2024 3:23 AM COMMUNICABLE DISEASE SPECIALIST Magdalena Roa CEMENT MASON APPRENTICE LAB MICROBIOLOGY - GENERAL OR DERABLES Final Result [facility] [address] [place] [address] * Vitamin B12 (11/16/2024 11:03 AM COMMUNICABLE DISEASE SPECIALIST) [facility] Vitamin B12 311 230 - 1,250 pg/mL Blood 11/16/2024 11:0 3 AM COMMUNICABLE DISEASE SPECIALIST 11/16/2024 12:34 PM COMMUNICABLE DISEASE SPECIALIST Michoacano Galindo MD LAB BLOOD ORDERABLES Final Res ult Performing Organization Address [facility] Co de Phone Number [address] [address] * POCT glucose (10/15/2024 1:34 PM COMMUNICABLE DISEASE SPECIALIST) Glucose, POC 93 70 - 199 mg/dL Glucose comment 1 Use This Result [facility] Glucose comment 2 RN/MD Notified [facility] Blood 10/15/2024 1:34 PM COMMUNICABLE DISEASE SPECIALIST 10/15/2024 1:34 PM COMMUNICABLE DISEASE SPECIALIST Deshaun West MD LAB POCT ORDERABLES - DEVICE Fin al Result Performing Organization Address [facility] Co de Phone Number [address] [address] * Surgical pathology (10/15/2024 1:02 PM COMMUNICABLE DISEASE SPECIALIST) Tissue (Colon, Biopsy) 10/15/2024 1:02 PM COMMUNICABLE DISEASE SPECIALIST Tissue (Colon, Biopsy) 10/15/2024 1:12 PM COMMUNICABLE DISEASE SPECIALIST Narrative PATHOLOGY [facility] - 10/16/2024 5:23 PM COMMUNICABLE DISEASE SPECIALIST [facility] Department of Pathology [address] [place] [id number] Note to Patients: This report may contain a detailed description of human tissue sent by a health care provider to the laboratory for pathologic evaluation. The content of this report is essential for diagnosis and may provide important critical findings. This information may be unfamiliar to patients to review without a medical professional present. It is advised that the patient review this report in the presence of a health care provider who can answer questions and explain the details. Final Report Patient Name: CIRA LUGO : 1965 (Age: 59) Gender: F Address: [address] [place] [address] [facility] #: [id number] Service: Gastro Location: Patient Type: [facility] OUTPATIENT Taken: 10/15/2024 Received: 10/15/2024 Accessioned: 10/15/2024 Reported: 10/16/2024 Physician(s): Yahaira Garcia FNP Diagnosis: A. Ileocecal valve, polyp, biopsy - Colonic mucosa with no histopathologic abnormality B. Sigmoid colon, polyps x3, biopsy - Three hyperplastic polyps Filippo Dunn M.D. Report Electronically Reviewed and Signed Out By Filippo Dunn M.D. 10/16/2024 17:23:26 Specimen(s) Received: A: IC Valve polyp biopsy B: Sigmoid colon polyp biopsy x 3 Microscopic Description: Microscopic examination is performed. Microscopic examination is performed. Clinical History: The patient is a 59-year-old woman presenting for colon cancer screening. Operative procedure: Colonoscopy with biopsy. Gross Description Received in two formalin jars labeled with the patient's identifiers. A. Labeled IC valve polyp biopsy and consists of a 0.3 cm suresh-pink tissue fragment, which is entirely submitted. Labeled A1. Jar 0. B. Labeled sigmoid colon polyp biopsy x3 and consists of three suresh-red tissue fragments ranging from 0.2-0.4 cm. Entirely submitted. Labeled B1. Jar 0. jjb/10/15/2024 14:35 HARDIK Chapman, PA ([facility] Microscopic slide review and interpretation for this case was performed at [facility], Department of Surgical Pathology, [address] [facility], [place] [id number], [place] [address] CLIA # [id number] us Deshaun West MD LAB PATHOLOGY ORDERABLES Final R esult PATHOLOGY [facility] * Colonoscopy (10/15/2024 12:54 PM COMMUNICABLE DISEASE SPECIALIST) Anatomical Region Laterality Modality Other Narrative Procedure Note Deshaun West MD - 10/15/2024 12:[address] [facility] ENDOSCOPY Patient Name: Cira Lugo Procedure Date: 10/15/2024 12:54PM Date of : 1965 Admit Type: Outpatient Age: 59 Gender: Female Attending MD: Deshaun West M.D. Room: [facility] ENDOSCOPY ROOM 06 Note Status: Finalized Procedure: Colonoscopy Indications: Screening for colorectal malignant neoplasm Referring MD: Providers: Deshaun West M.D. Medicines: Monitored Anesthesia Care Complications: No immediate complications. Estimated Blood Loss: Estimated blood loss: none. Procedure: Pre-Anesthesia Assessment: - Prior to the procedure, a History and Physicalwas performed, and patient medications and allergieswere reviewed. The risks and benefits of the procedureand the sedation options and risks were discussed withthe patient. All questions were answered and informed consent was obtained. Patient identification and proposed procedure were verified. After reviewingthe risks and benefits, the patient was deemed in satisfactory condition to undergo the procedure.The anesthesia plan was to use monitored anesthesiacare (MAC). Immediately prior to administration of medications, the patient was re-assessed foradequacy to receive sedatives. The heart rate, respiratory rate, oxygen saturations, blood pressure, adequacyof pulmonary ventilation, and response to care were monitored throughout the procedure. The physical status of the patient was re-assessed after the procedure. The benefits, risks and alternatives of theprocedure and sedation were discussed and informed consentwas obtained. All questions were answered. Please referto the signed informed consent document in the medical record. The scope was passed under direct vision.The [id number]-[id number] colonoscope was introduced through theanus and advanced to the cecum, identified byappendiceal orifice and ileocecal valve. The colonoscopy was performed without difficulty. The patient tolerated the procedure well. The quality of the bowel preparation was fair. Scope withdrawal time was 14 minutes. Prep was administered in a split dose. Findings: The perianal and digital rectal examinations were normal. A diminutive polyp was found in the ileocecal valve. The polyp was removed with a cold biopsy forceps. Resection and retrieval were complete. Three polyps were found in the sigmoid colon. The polyps werediminutive in size. These polyps were removed with a cold biopsy forceps.Resection and retrieval were complete. Non-bleeding internal hemorrhoids were found during retroflexion. The hemorrhoids were small. The exam was otherwise without abnormality. Impression: - Preparation of the colon was fair. - One diminutive polyp at the ileocecal valve,removed with a cold biopsy forceps. Resected andretrieved. - Three diminutive polyps in the sigmoid colon, removed with a cold biopsy forceps. Resected and retrieved. - Non-bleeding internal hemorrhoids. - The examination was otherwise normal. Recommendation: - Patient has a contact number available for emergencies. The signs and symptoms of potential delayed complications were discussed with thepatient. Return to normal activities tomorrow. Written discharge instructions were provided to thepatient. - High fiber diet. - Continue present medications. - Await pathology results. - Repeat colonoscopy in 5 years for surveillance. Deshaun West M.D. Deshaun West M.D. 10/15/2024 1:17:26 PM . Number of Addenda: 0 Note Initiated On: 10/15/2024 12:54 PM Recognized by the [place] [employer] for promoting quality in endoscopy us Deshaun West MD ENDOSCOPY PROCEDURES Final Resul t * POCT glucose (10/15/2024 12:37 PM COMMUNICABLE DISEASE SPECIALIST) Pathologist [facility] Glucose, POC 107 70 - 199 mg/dL Glucose comment 1 Use This Result [facility] Glucose comment 2 RN/ Notified [facility] Blood 10/15/2024 12:3 7 PM COMMUNICABLE DISEASE SPECIALIST 10/15/2024 12:37 PM COMMUNICABLE DISEASE SPECIALIST us Deshaun West MD LAB POCT ORDERABLES - DEVICE Fin al Result [facility] [address] [facility] [place] [address] * (ABNORMAL) CBC with auto differential (10/09/2024 1:16 PM COMMUNICABLE DISEASE SPECIALIST) [facility] WBC 11.0(H) 3.8 - 10.8 Thousand/u L [facility] RBC, POC 4.50 3.80 - 5.10 Million/uL [facility] Hgb 12.7 11.7 - 15.5 g/dL [facility] Hct 41.5 35.0 - 45.0 % [facility] MCV 92.2 80.0 - 100.0 fL [facility] MCH 28.2 27.0 - 33.0 pg [facility] MCHC 30.6(L) 32.0 - 36.0 g/dL [facility] Comment: For adults, a slight decrease in the calculated MCHC value (in the range of 30 to 32 g/dL) is most likely not clinically significant; however, it should be interpreted with caution in correlation with other red cell parameters and the patient's clinical condition. Rdw 13.3 11.0 - 15.0 % [facility] Platelets 282 140 - 400 Thousand/u L [facility] MPV 10.5 7.5 - 12.5 fL [facility] Neutrophils, abs 7,271 1,500 - 7,800 cells/uL [facility] Lymphocytes, abs 2,860 850 - 3,900 cells/uL [facility] Monocyte abs 737 200 - 950 cells/uL [facility] Eosinophils, abs 77 15 - 500 cells/uL [facility] Basophils, abs 55 0 - 200 cells/uL [facility] Neutrophils 66.1 % [facility] Lymphocyte pct 26.0 % [facility] Monocytes 6.7 % [facility] Eosinophils 0.7 % [facility] Basophils 0.5 % [facility] Blood 10/09/2024 1:16 PM COMMUNICABLE DISEASE SPECIALIST 10/09/2024 1:16 PM COMMUNICABLE DISEASE SPECIALIST Magdalena Roa CEMENT MASON APPRENTICE LAB BLOOD ORDERABLES Final Re sult [place] [facility] [address] [place] [address] * POC Influenza A/B, COVID-19 antigen (10/09/2024 11:59 AM COMMUNICABLE DISEASE SPECIALIST) [facility] Influenza A Ag, POC Negative Negative [facility] Influenza B Ag, POC Negative Negative [facility] COVID-19 Ag POC Presumptive Negative Presumptive Negative, Invalid [facility] Nasal 10/09/2024 11:5 9 AM COMMUNICABLE DISEASE SPECIALIST Magdalena Roa CEMENT [place] APPRENTICE POINT OF CARE TEST ORDERABLES Final Result Performing Organization Address [place]/[facility] Co de Phone Number [facility] [address] * (ABNORMAL) POCT urinalysis dipstick (10/09/2024 11:57 AM COMMUNICABLE DISEASE SPECIALIST) Pathologist [facility] Glucose, ur, POC Negative Negative MG/DL Bilirubin, ur, POC Negative Negative, Small, Moderate, Large Ketones, ur, POC Negative Negative Specific [place], POC 1.020 1.003 - 1.030 Blood, ur, POC Negative Negative pH, ur, POC 6.0 5.0 - 8.0 Protein, ur, POC Negative Negative Urobilinogen, urine, POC 1.0 0.2 - 1.0 mg/dL Nitrite, ur, POC Negative Negative Leukocytes, ur, POC Small(A) Negative Lot Number [id number] Comment:08/30/2025 Urine 10/09/2024 11:5 7 AM COMMUNICABLE DISEASE SPECIALIST Magdalena Roa CEMENT [place] APPRENTICE POINT OF CARE TEST ORDERABLES Final Result * POCT glucose (10/06/2024 1:15 AM COMMUNICABLE DISEASE SPECIALIST) Glucose, POC 142 70 - 199 mg/dL Comment:Testing performed by : [address] [address] Glucose comment 1 Use This Result [facility] Comment:Testing performed by : [address], [address] Glucose comment 2 RN/MD Notified [facility]AMEY Comment:Testing performed by : [address] [address] Blood 10/06/2024 1:15 AM COMMUNICABLE DISEASE SPECIALIST 10/06/2024 1:15 AM COMMUNICABLE DISEASE SPECIALIST Notinfile Unknown LAB POCT ORDERABLES - DEVICE F inal Result [facility] [address] [facility] [place] [address] * CT Recon Lumbar Spine WO Contrast (10/06/2024 1:08 AM COMMUNICABLE DISEASE SPECIALIST) Anatomical Region Laterality Modality Spine N/A Computed Tomogra phy 10/06/2024 1:30 AM COMMUNICABLE DISEASE SPECIALIST Narrative 10/06/2024 1:31 AM COMMUNICABLE DISEASE SPECIALIST EXAM DESCRIPTION: CT RECON LUMBAR SPINE WO CONTRAST REASON FOR STUDY: trauma Pt arrived stating that on Tuesday she fell out of a vehicle. Pt states that yesterday she noticed that she had noted blood in her urine. Pt states that she has hand hysterectomy and a bladder sling. TECHNIQUE: Axial images acquired through the lumbar spine without intravenous contrast. Reconstructed coronal and sagittal MPR images reviewed. All images stored on PACS. Automated exposure control was used as a dose optimization technique for this examination. COMPARISON: None FINDINGS: SEGMENTATION: No transitional anatomy. The lowest well-developed disc space is labeled L5-S1. ALIGNMENT: Normal. VERTEBRAE: No fracture. Vertebral heights well-maintained. DISC HEIGHT: Well-maintained. HARDWARE: None in the spine. INDIVIDUAL DISC LEVELS: Canal contents are not well seen by CT. Mild circumferential bulging is suspected at L4-L5 and L5-S1. No clear evidence of the tight canal or neural foraminal narrowing is seen. Some facet arthropathy is noted of the lower lumbar spine. VISUALIZED RIBS: No fractures. SOFT TISSUES: No significant or acute finding in adjacent soft tissues. OTHER: No other significant finding. IMPRESSION: Mild degenerative changes are noted. No evidence of traumatic injury is seen. THIS IS AN ELECTRONICALLY VERIFIED FINAL REPORT 10/06/2024 1:31 AM - Electronically signed by Vasquez Travis M.D. KH: COCO Report ID: [id number] Reading Location: [place] [address] Procedure Note Vasquez Travis MD - 10/06/2024 EXAM DESCRIPTION: CT RECON LUMBAR SPINE WO CONTRAST REASON FOR STUDY: trauma Pt arrived stating that on Tuesday she fell out of a vehicle. Pt statesthat yesterday she noticed that she had noted blood in her urine. Pt statesthat she has hand hysterectomy and a bladder sling. TECHNIQUE: Axial images acquired through the lumbar spine withoutintravenous contrast. Reconstructed coronal and sagittal MPR images reviewed. Allimages stored on PACS. Automated exposure control was used as a dose optimization technique forthis examination. COMPARISON: None FINDINGS: SEGMENTATION: No transitional anatomy. The lowestwell-developed disc space is labeled L5-S1. ALIGNMENT: Normal. VERTEBRAE: No fracture. Vertebral heights well-maintained. DISC HEIGHT: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 performed, including computer aided detection (CAD) and BILATERAL digital breast tomosynthesis (DBT). Directed ultrasound evaluation of BOTH breasts was performed. BREAST PARENCHYMAL COMPOSITION: The breasts are heterogenously dense, which may obscure small masses. MAMMOGRAM FINDINGS: There is no suspicious abnormality in either breast. SONOGRAM FINDINGS: Targeted bilateral breast ultrasound was performed at the areas of patient's pain. In the right breast at 5:00, 10 cm the nipple and left breast at 10:30, 1 cm from the nipple, there is normal scattered glandular tissue. No suspicious abnormality in either breast. IMPRESSION: No suspicious abnormality in either breast. OVERALL FINAL ASSESSMENT: BI-RADS Category 1: Negative. Annual screening mammography is recommended. Electronically signed by: Eliot Jin M.D. 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
--- OUTSIDE RECORDS SUMMARY | 2024-12-26 14:27 | XMS_ITS | Referral Summary ---
Author Organization [facility] Address [address] [place] [address] Care Team Providers Care Sneller Hand Name Role Phone Magdalena Roa PERMACULTURE CONTRACTOR Primary Care Provider [phone] Encounters Date Type Department Care Team Description 12/26/2024 Telephone [facility] Family Medicine [address] [facility] [address] [place] [phone] Magdalena Roa NP 12/25/2024 Telephone [facility] Family Medicine [address] [facility] [address] [place] [phone] Magdalena Roa NP 12/24/2024 Results Follow-Up [facility] Neurology [address] [phone] Michoacano Galindo MD 12/22/2024 2:29 PM STRUCTURAL STEEL PAINTER - 12/22/2024 11:59 PM STRUCTURAL STEEL PAINTER Hospital Encounter [facility] MRI [address] [place] [address] Memory changes Discharge Disposition: Discharge to home or self care 12/11/2024 9:30 AM STRUCTURAL STEEL PAINTER Office Visit [facility] Medical [facility] Pulmonary [address] [place] [phone] Eulogio Yost MD Poor sleep; Snoring 12/03/2024 11:00 AM STRUCTURAL STEEL PAINTER Office Visit [facility] [address] [place] [address] 8th [place] [address] [place] [address] Nima Jacques NP Chest pain, unspecified type (Primary Dx); Hypertension associated with diabetes (HCC); Mixed hyperlipidemia; Echocardiogram abnormal 11/29/2024 3:00 PM STRUCTURAL STEEL PAINTER Clinical Support [facility] Medicine [address] [facility] [address] [place] [address] Dysuria (Primary Dx) 11/19/2024 Telephone [facility] Neurology [address] [place] [phone] Michoacano Galindo MD Test Results (RESULTS ) 11/16/2024 10:45 AM STRUCTURAL STEEL PAINTER Lab [facility] Medical Office Bld[address] [place] [address] Memory changes 11/16/2024 10:00 AM STRUCTURAL STEEL PAINTER Office Visit [facility] Neurology [address] [place] [phone] Michoacano Galindo MD Poor sleep (Primary Dx); Memory changes; Snoring 11/01/2024 Telephone [facility] Medicine [address] [place] [address] [place] [phone] Magdalena Roa NP Med Refill 10/15/2024 1:00 PM STRUCTURAL STEEL PAINTER - 10/15/2024 1:30 PM STRUCTURAL STEEL PAINTER Surgery [facility] GI Lab [address] [place] [address] Deshaun West MD COLON BIOPSY 10/15/2024 12:52 PM STRUCTURAL STEEL PAINTER Anesthesia Event [facility] GI Lab [address] [place] [address] Cheri Cardenas MD Cannon, James J., MD 10/15/2024 11:59 AM STRUCTURAL STEEL PAINTER - 10/15/2024 2:27 PM STRUCTURAL STEEL PAINTER Hospital Encounter [facility] GI Lab [address] [place] [address] Deshaun West MD Screening for colon cancer Discharge Disposition: Discharge to home or self care 10/10/2024 Orders Only [facility] Gastroenterology at [place] [phone] [facility] [address] [place] [address] Deshaun West MD Screening for colon cancer (Primary Dx) 10/09/2024 11:30 AM STRUCTURAL STEEL PAINTER Office Visit [facility] Medical [facility] [place] [address] [place] [address] Magdalena Roa NP Cough with exposure to severe acute respiratory syndrome coronavirus 2 (SARS-CoV-2) (Primary Dx); BMI 29.0-29.9,adult; Dysuria; Anxiety; Memory changes; Abnormal CBC 10/06/2024 12:54 AM STRUCTURAL STEEL PAINTER - 10/06/2024 2:30 AM STRUCTURAL STEEL PAINTER Emergency [facility] Emergency Department [address] [place] [address] Krishna Parham DO Microscopic hematuria (Primary Dx); Contusion of left knee, initial encounter; Traumatic ecchymosis Discharge Disposition: Discharge to home or self care 10/05/2024 Nurse Triage [facility] Medical [facility] Internal Medicine at [place] [address] [place] [address] Magdalena Roa NP from Last 3 Months Allergies Active Allergy Reactions Criticality Noted Date [...] total) by mouth daily 90 capsule 1 Active ezetimibe (ZETIA) 10 mg tabletIndications :Type 2 diabetes mellitus with hyperlipidemia (HCC) Take 1 tablet (10 mg total) by mouth daily 90 tablet 1 Active sertraline (ZOLOFT) 25 mg tabletIndications :Anxiety [...] total) by mouth daily 90 tablet 1 025 Active atorvastatin (LIPITOR) 80 mg tabletIndications :Type [...] A FULL STOMACH OR WITH AN ANTACID 024 2024 Discontinued(T herapy completed) polyethylene glycol 236-22.74-6.74 -5.86 gram solution TAKE 4000 MLS BY MOUTH ONCE FOR 1 DOSE 024 2024 Discontinued(T herapy completed) ciprofloxacin (CIPRO) 500 [...] 09/03/2024 Assessment & Plan (12/03/2024 12:01 PM STRUCTURAL STEEL PAINTER): Echocardiogram noted grade 2 LV diastolic dysfunction. Per last note by Dr. Hercules this was reviewed and appreciated to be more indeterminate. Will continue to work on risk factor reduction with weight loss and regular exercise. Assessment & Plan (09/03/2024 11:48 AM STRUCTURAL STEEL PAINTER): Echocardiogram noted grade 2 LV diastolic dysfunction. [...] 04/19/2021 Assessment & Plan (12/03/2024 12:02 PM STRUCTURAL STEEL PAINTER): Stress induced chest pain with a negative [...] review. Assessment & Plan (09/03/2024 11:50 AM STRUCTURAL STEEL PAINTER): Stress induced chest pain with a negative [...] 10/27/2020 Assessment & Plan (10/09/2024 11:42 AM STRUCTURAL STEEL PAINTER): Discussed the patient's BMI. The BMI is above average. BMI management plan is completed. BMI Follow-up includes: nutrition counseling, exercise counseling and education provided. Snoring 10/27/2020 Assessment & Plan (12/11/2024 9:57 AM STRUCTURAL STEEL PAINTER): The patient presents with snoring and daytime fatigue. Per her request, I have ordered a home sleep test and she will follow up here in 4 months. Assessment & Plan (10/27/2020 12:47 PM STRUCTURAL STEEL PAINTER): Will refer for sleep study Sleep disturbance 10/27/2020 Assessment & Plan (10/27/2020 12:47 PM STRUCTURAL STEEL PAINTER): Will refer for sleep study Breast cancer screening by mammogram 09/10/2020 Assessment & Plan (09/10/2020 11:38 AM STRUCTURAL STEEL PAINTER): Retrieve records from previous pcp. Hypothyroidism 09/10/2020 Assessment & Plan (04/29/2022 7:17 AM CDT): Continue medication same dosing at this time, refill as needed. Assessment & Plan (01/21/2022 12:40 PM CDT): Labs entered, continue medications the same time Assessment & Plan (05/08/2021 1:15 PM CDT): Fasting labs entered, will notify patient of results as available Assessment & Plan (10/27/2020 12:46 PM STRUCTURAL STEEL PAINTER): Will repeat labs, continue medication same at this time Assessment & Plan (09/10/2020 11:39 AM STRUCTURAL STEEL PAINTER): Fasting labs entered, will notify patient of results as available Continue medication same at this time. Vitamin D deficiency 09/10/2020 Assessment & Plan (10/27/2020 12:46 PM STRUCTURAL STEEL PAINTER): Will repeat labs, continue medication same at this time Assessment & Plan (09/10/2020 11:39 AM STRUCTURAL STEEL PAINTER): Fasting labs entered, will notify patient of results as available Continue medication same at this time. Hypertension associated with diabetes 09/10/2020 Overview (08/15/2023): Continue blood pressure medicine daily as directed Assessment & Plan (12/03/2024 12:00 PM STRUCTURAL STEEL PAINTER): Above goal at home. Increase Amlodipine to 10 mg daily. She will keep a blood pressure diary and we will touch base in 1-2 weeks to review. Assessment & Plan (09/03/2024 11:49 AM STRUCTURAL STEEL PAINTER): She will stop hydrochlorothiazide and we with [...] available Assessment & Plan (09/10/2020 11:39 AM STRUCTURAL STEEL PAINTER): Fasting labs entered, will notify patient of results as available Continue medication same at this time. Hyperlipidemia 09/10/2020 Assessment & Plan (12/03/2024 12:00 PM STRUCTURAL STEEL PAINTER): Continue atorvastatin 80 mg daily and zetia 10 mg daily. Planning to repeat with PCP. Assessment & Plan (09/03/2024 11:47 AM STRUCTURAL STEEL PAINTER): Continue atorvastatin 80 mg daily. Assessment & [...] session Assessment & Plan (09/10/2020 11:39 AM STRUCTURAL STEEL PAINTER): Fasting labs entered, will notify patient of results as available Continue medication same at this time. Memory changes 09/10/2020 Assessment & Plan (10/03/2020 12:35 PM STRUCTURAL STEEL PAINTER): We reviewed recent normal mri of head. Advised referral to neurology for further evaluation and treatment. Assessment & Plan (09/10/2020 11:38 AM STRUCTURAL STEEL PAINTER): Will taper/discontinue wellbutrin. Will order mri of head to evaluate further. Chronic intractable headache 09/10/2020 Assessment & Plan (10/27/2020 12:46 PM STRUCTURAL STEEL PAINTER): Wants to hold/not schedule neuro referral at this time. Will continue medication the same. Will refer for sleep study. Assessment & Plan (10/03/2020 12:36 PM STRUCTURAL STEEL PAINTER): We reviewed recent normal mri of head. Advised referral to neurology for further evaluation and treatment. We discussed adding inderal or other daily medication for prevention, patient wants to start with changing the lexapro first. Assessment & Plan (09/10/2020 11:39 AM STRUCTURAL STEEL PAINTER): Will evaluate further with mri of head Anxiety 09/10/2020 Assessment & Plan (04/29/2022 7:16 AM CDT): We will increase her cymbalta to 90mg daily. She was advised to notify the office over the next 4w - if ineffective will try adding buspar tid. Assessment & Plan (12/10/2021 11:48 AM STRUCTURAL STEEL PAINTER): Continue with cymbalta 60mg daily Add bid/prn xanax - advised of potential addictiveness, she expressed understanding. We discussed changing cymbalta or adding buspar tid over the coming month if needing xanax routinely. Assessment & Plan (10/15/2021 3:24 PM STRUCTURAL STEEL PAINTER): Increase cymbalta from 60mg every day to 90mg every day Assessment & Plan (09/17/2021 1:37 PM STRUCTURAL STEEL PAINTER): Stable, continue meds same at this time Assessment & Plan (05/08/2021 1:17 PM CDT): Will increase cymbalta. Assessment & Plan (10/27/2020 12:46 PM STRUCTURAL STEEL PAINTER): Continue medication same Assessment & Plan (10/03/2020 12:37 PM STRUCTURAL STEEL PAINTER): Taper lexapro every other day x 6 days, then discontinue. Will start cymbalta when taper is finished. We discussed gi workup pending resolution of loose stools. Will also retrieve consult notes from previous pcp to determine date and results of last cscope. Assessment & Plan (09/10/2020 11:40 AM STRUCTURAL STEEL PAINTER): Taper wellbutrin 1 tab every other day [...] (3.9 % thirty day risk of , ND or cardiac arrest). No further cardiac testing [...] nutrition counseling, exercise counseling and education provided. Avis eye disease of left eye 06/14/2022 08/09/2022 [...] tenosynovitis) 08/19/2021 08/09/2022 BMI 34.0-34.9,adult 07/28/2021 01/22/20 22 Assessment & Plan (10/15/2021 3:24 PM STRUCTURAL STEEL PAINTER): Increase metformin to 500mg bid Encouraged heart [...] session. Assessment & Plan (12/10/2021 11:49 AM STRUCTURAL STEEL PAINTER): Discontinue metformin Will initiate topamax 25mg bid for appetite suppression. She was advised that this is an off label utilization and due to concurrent cymbalta she has a risk for serotonin syndrome. She expressed understanding and desire to proceed. She will f/u in 4w for weight management, sooner as needed. Assessment & Plan (10/15/2021 3:24 PM STRUCTURAL STEEL PAINTER): Increase metformin to 500mg bid Encouraged heart healthy diet, exercise 4x/week for 30min each session Assessment & Plan (09/17/2021 1:38 PM STRUCTURAL STEEL PAINTER): Obesity is unchanged. Discussed the patient's BMI. [...] 01/21/2022 Assessment & Plan (09/10/2020 11:38 AM STRUCTURAL STEEL PAINTER): tdap today Immunizations Immunization Administration Dates Next Due Flucelvax Influenza Quad 07/31/2020 Influenza, Quadrivalent, Spl it, Preservative Free, Intramuscular 08/15/2023,09/17/2021 Influenza, Unspecified 08/24/2024,2023(Deferred: Patient Refused),12/28/2022(Deferred: Patient Refused),12/01/2021(Deferred: Patient Refused) Moderna SARS-CoV-2 Monovalen t Vaccination (12+ YRS) 10/07/2021,01/10/2021,12/13/2020 Td, adsorbed 12/05/1998 Tdap 09/10/2020 Social History Tobacco Use Types Packs/Day Years [...] on file Legal Sex Female 4:52 AM STRUCTURAL STEEL PAINTER Gender Identity Not on file Sexual Orientation Not on file 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 Not on file Not on file Not on file Last Filed Vital Signs Vital Sign Reading Time Taken Comments Blood Pressure 126/68 12/11/2024 9:25 AM STRUCTURAL STEEL PAINTER Pulse 70 12/11/2024 9:25 AM STRUCTURAL STEEL PAINTER Temperature 36.9 C (98.4 F) 12/11/2024 9:25 AM STRUCTURAL STEEL PAINTER Respiratory Rate 18 12/11/2024 9:25 AM STRUCTURAL STEEL PAINTER Oxygen Saturation 94% 12/11/2024 9:25 AM STRUCTURAL STEEL PAINTER Inhaled Oxygen Concentration - - Weight 70.3 kg (155 lb) 12/03/2024 10:47 AM STRUCTURAL STEEL PAINTER Height 154.9 cm (5' 1 ) 12/11/2024 9:25 AM STRUCTURAL STEEL PAINTER Body Mass Index 29.29 12/03/2024 10:47 AM STRUCTURAL STEEL PAINTER Plan of Treatment Not on file Medical Devices Implanted Type Area Multigrapher Device Identifier Shelf Expiration Date Model / Serial / Lot AtHoc Oscar Upsylon 35.4cm Elongation Profile Lightweight Large Pore Low [id number] - [id number] Implanted:Qty: 1 on 02/14/2024 by Lam Munoz MD at [facility] Mesh N/A: Pelvis [employer] Oscar 07/30/2026 [id number] / / [id number] [employer] Sling Urinary Incontinence Female Stress Short Desara Blue Antonio-[id number] - [id number] Implanted:Qty: 1 on 02/14/2024 by Lam Munoz MD at [facility] N/A: Pelvis [employer] 07/21/2026 [id number] / / [id number] Procedures Procedure Name Priority Date/Time Associated Diagnosis Comments MRI BRAIN WO CONTRAST Schedule Routine, Read Routine (OP Routine) 12/22/2024 3:09 PM STRUCTURAL STEEL PAINTER Memory changes POCT URINALYSIS DIPSTICK Routine 11/29/2024 3:33 PM STRUCTURAL STEEL PAINTER Dysuria URINE CULTURE Routine 11/29/2024 3:21 PM STRUCTURAL STEEL PAINTER Dysuria VITAMIN B12 Routine 11/16/2024 11:03 AM STRUCTURAL STEEL PAINTER Memory changes POCT GLUCOSE DEVICE Routine 10/15/2024 1 :34 PM STRUCTURAL STEEL PAINTER SURGICAL PATHOLOGY Routine 10/15/2024 1: 02 PM STRUCTURAL STEEL PAINTER Screening for colon cancer COLONOSCOPY 10/15/2024 12:54 PM STRUCTURAL STEEL PAINTER COLON BIOPSY 10/15/2024 12:54 PM STRUCTURAL STEEL PAINTER Screening for colon cancer POCT GLUCOSE DEVICE Routine 10/15/2024 12:37 PM STRUCTURAL STEEL PAINTER CBC WITH AUTO DIFFERENTIAL Routine 10/09/2024 1:16 PM STRUCTURAL STEEL PAINTER Abnormal CBC POC INFLUENZA A/B, COVID-19 ANTIGEN Routine 10/09/2024 11:59 AM STRUCTURAL STEEL PAINTER Cough with exposure to severe acute respiratory syndrome coronavirus 2 (SARS-CoV-2) POCT URINALYSIS DIPSTICK Routine 10/09/2024 11:57 AM STRUCTURAL STEEL PAINTER Dysuria POCT GLUCOSE DEVICE Routine 10/06/2024 1 :[address] RECON LUMBAR SPINE WO CONTRAST ED 10/06/2024 1:08 [address] CHEST ABDOMEN PELVIS W CONTRAST ED 10/06/2024 1:08 AM STRUCTURAL STEEL PAINTER XR KNEE LEFT 3 VIEWS ED 10/06/2024 12:26 AM STRUCTURAL STEEL PAINTER EGFR STAT 10/05/2024 11:58 PM STRUCTURAL STEEL PAINTER URINALYSIS, MICROSCOPIC ONLY STAT 10/05/2024 11:58 PM STRUCTURAL STEEL PAINTER DIFFERENTIAL AUTO STAT 10/05/2024 11:58 PM STRUCTURAL STEEL PAINTER CBC WITH AUTO DIFFERENTIAL STAT 10/05/2024 11:58 PM STRUCTURAL STEEL PAINTER COMPREHENSIVE METABOLIC PANEL STAT 10/05/2024 11:58 PM STRUCTURAL STEEL PAINTER URINALYSIS AND REFLEX TO MICROSCOPIC AND CULTURE STAT 10/05/2024 11:58 PM STRUCTURAL STEEL PAINTER HEMOGLOBIN A1C Routine 08/13/2024 10:45 AM CDT [...] MRI Brain WO Contrast (12/22/2024 3:09 PM STRUCTURAL STEEL PAINTER) Anatomical Region Laterality Modality Head and Neck N/A Magnetic Resonan ce 12/24/2024 10:1 2 AM STRUCTURAL STEEL PAINTER Narrative 12/24/2024 10:18 AM STRUCTURAL STEEL PAINTER EXAM DESCRIPTION: MRI BRAIN WO CONTRAST REASON [...] Dago Medrano M.D., MM T: Report ID: [id number] Reading Location: [place] [address] Procedure Note Dago Medrano MD - 12/24/2024 EXAM DESCRIPTION: MRI BRAIN WO CONTRAST REASON FOR STUDY: Memory Loss Memory loss f/6 months. TECHNIQUE: Multiplanar imaging includes non-contrasted T1, T2, FLAIR, and diffusion with ADC map sequences. Additional sequence(s) sensitive [employer] products. Images stored on PACS. COMPARISON: No [...] Dago Medrano M.D., MM T: Report ID: [id number] Reading Location: [place] [address] Michoacano Galindo MD [facility] MRI PROCEDURES Final Resul t * (ABNORMAL) POCT urinalysis dipstick (11/29/2024 3:33 PM STRUCTURAL STEEL PAINTER) Color, Urine, POC Natalie Clarity, ur, POC Cloudy(A) Clear Glucose, ur, POC Negative Negative MG/DL Bilirubin, ur, POC Negative Negative, Small, Moderate, Large Ketones, ur, POC Negative Negative Specific [place], POC 1.030 1.003 - 1.030 Blood, ur, POC Large(A) Negative pH, ur, POC 5.5 5.0 - 8.0 Protein, ur, POC 100.(A) Negative Urobilinogen, urine, POC 0.2 0.2 - 1.0 mg/dL Nitrite, ur, POC Negative Negative Leukocytes, ur, POC Small(A) Negative Lot Number cloudy Urine 11/29/2024 3:33 PM STRUCTURAL STEEL PAINTER Magdalena Roa PERMACULTURE CONTRACTOR POINT OF CARE TEST ORDERABLES Final Result * Urine culture Urine, clean voided (11/29/2024 3:21 PM STRUCTURAL STEEL PAINTER) [facility] Urine culture [facility] Comment: CULTURE, URINE, ROUTINE Micro Number: [id number] Test Status: Final Specimen Source: Not given Specimen Quality: Adequate Result: No Growth Urine, clean voided 11/29/2024 3:21 PM STRUCTURAL STEEL PAINTER 11/30/2024 3:23 AM STRUCTURAL STEEL PAINTER Magdalena Roa NP LAB MICROBIOLOGY - GENERAL OR DERABLES Final Result [facility] [address] [place] [address] * Vitamin B12 (11/16/2024 11:03 AM STRUCTURAL STEEL PAINTER) [facility] Vitamin B12 311 230 - 1,250 pg/mL Blood 11/16/2024 11:0 3 AM STRUCTURAL STEEL PAINTER 11/16/2024 12:34 PM STRUCTURAL STEEL PAINTER Michoacano Galindo MD LAB BLOOD ORDERABLES Final Res ult [facility] [address] [facility] Department [place] [address] * POCT glucose (10/15/2024 1:34 PM STRUCTURAL STEEL PAINTER) Pathologist [facility] Glucose, POC 93 70 - 199 mg/dL Glucose comment 1 Use This Result [facility] Glucose comment 2 RN/MD Notified [facility] Blood 10/15/2024 1:34 PM STRUCTURAL STEEL PAINTER 10/15/2024 1:34 PM STRUCTURAL STEEL PAINTER Deshaun West MD LAB POCT ORDERABLES - DEVICE Fin al Result [facility] Department of Laboratories [place], [place] [id number] * Surgical pathology (10/15/2024 1:02 PM STRUCTURAL STEEL PAINTER) Tissue (Colon, Biopsy) 10/15/2024 1:02 PM STRUCTURAL STEEL PAINTER Tissue (Colon, Biopsy) 10/15/2024 1:12 PM STRUCTURAL STEEL PAINTER Narrative PATHOLOGY [facility] - 10/16/2024 5:23 PM STRUCTURAL STEEL PAINTER [facility] Department of Pathology [facility] [place], [place] [address] Note to Patients: This report may contain [...] : 1965 (Age: 59) Gender: F Address: [address] [place] [address] [facility] #: [id number] Service: Gastro Location: Patient Type: [facility] OUTPATIENT Taken: 10/15/2024 Received: 10/15/2024 Accessioned: 10/15/2024 Reported: 10/16/2024 Physician(s): Yahaira Garcia, GERMAN Diagnosis: A. Ileocecal valve, polyp, biopsy - [...] cm. Entirely submitted. Labeled B1. Jar 0. [facility]/10/15/2024 14:35 HARDIK Chapman, PA ([facility] Microscopic slide review and interpretation for this case was performed at [facility], Department of Surgical Pathology, [address] [facility], [place] [id number], [address] # [id number] us Deshaun West MD LAB PATHOLOGY ORDERABLES Final R esult PATHOLOGY [facility] * Colonoscopy (10/15/2024 12:54 PM STRUCTURAL STEEL PAINTER) Anatomical Region Laterality Modality Other Narrative Procedure Note Deshaun West MD - 10/15/2024 12:54 PM CST [facility] GI ENDOSCOPY Patient Name: Cira Lugo Procedure Date: 10/15/2024 12:54PM Date of : 1965 Admit Type: Outpatient Age: 59 Gender: Female Attending MD: Deshaun West M.D. Room: [facility] ENDOSCOPY ROOM 06 Note Status: Finalized Procedure: [...] The scope was passed under direct vision.The [id number]-DL350J colonoscope was introduced through theanus and advanced [...] On: 10/15/2024 12:54 PM Recognized by the [place] [employer] for promoting quality in endoscopy Deshaun West MD ENDOSCOPY PROCEDURES Final Resul t * POCT glucose (10/15/2024 12:37 PM STRUCTURAL STEEL PAINTER) Glucose, POC 107 70 - 199 mg/dL Glucose comment 1 Use This Result [facility] Glucose comment 2 RN/MD Notified [facility] Blood 10/15/2024 12:3 7 PM STRUCTURAL STEEL PAINTER 10/15/2024 12:37 PM STRUCTURAL STEEL PAINTER Deshaun West MD LAB POCT ORDERABLES - DEVICE Fin al Result [facility] [address] [facility] Department [place] [address] * (ABNORMAL) CBC with auto differential (10/09/2024 1:16 PM STRUCTURAL STEEL PAINTER) [facility] WBC 11.0(H) 3.8 - 10.8 Thousand/u L [...] Diagnostics-S t Noe Blood 10/09/2024 1:16 PM STRUCTURAL STEEL PAINTER 10/09/2024 1:16 PM STRUCTURAL STEEL PAINTER Magdalena Roa PERMACULTURE CONTRACTOR LAB BLOOD ORDERABLES Final Re sult [facility] [address] [place] [address] * POC Influenza A/B, COVID-19 antigen (10/09/2024 11:59 AM STRUCTURAL STEEL PAINTER) [facility] Influenza A Ag, POC Negative Negative [facility] Influenza B Ag, POC Negative Negative [facility] COVID-19 Ag POC Presumptive Negative Presumptive Negative, Invalid [facility] Nasal 10/09/2024 11:5 9 AM STRUCTURAL STEEL PAINTER us Magdalena Roa PERMACULTURE CONTRACTOR POINT OF CARE TEST ORDERABLES Final Result Performing Organization Address City/[facility] Co de Phone Number [facility] [address] * (ABNORMAL) POCT urinalysis dipstick (10/09/2024 11:57 AM STRUCTURAL STEEL PAINTER) Pathologist [facility] Glucose, ur, POC Negative Negative MG/DL Bilirubin, ur, POC Negative Negative, Small, Moderate, Large Ketones, ur, POC Negative Negative Specific [place], POC 1.020 1.003 - 1.030 Blood, ur, POC Negative Negative pH, ur, POC 6.0 5.0 - 8.0 Protein, ur, POC Negative Negative Urobilinogen, urine, POC 1.0 0.2 - 1.0 mg/dL Nitrite, ur, POC Negative Negative Leukocytes, ur, POC Small(A) Negative Lot Number [id number] Comment:08/30/2025 Urine 10/09/2024 11:5 7 AM STRUCTURAL STEEL PAINTER us Magdalena Roa PERMACULTURE CONTRACTOR POINT OF CARE TEST ORDERABLES Final Result * POCT glucose (10/06/2024 1:15 AM STRUCTURAL STEEL PAINTER) Pathologist [facility] Glucose, POC 142 70 - 199 mg/dL Comment:Testing performed by : [facility], [address] [place] [address]., [id number] Glucose comment 1 Use This Result [facility] Comment:Testing performed by : [address] [address] Glucose comment 2 RN/MD Notified [facility] Comment:Testing performed by : [address] [address] Blood 10/06/2024 1:15 AM STRUCTURAL STEEL PAINTER 10/06/2024 1:15 AM STRUCTURAL STEEL PAINTER us Not[employer] Unknown LAB POCT ORDERABLES - DEVICE F inal Result [facility] [address] [facility] Department [place] [address] * CT Recon Lumbar Spine WO Contrast (10/06/2024 1:08 AM STRUCTURAL STEEL PAINTER) Anatomical Region Laterality Modality Spine N/A Computed Tomogra phy 10/06/2024 1:30 AM STRUCTURAL STEEL PAINTER Narrative 10/06/2024 1:31 AM STRUCTURAL STEEL PAINTER EXAM DESCRIPTION: CT RECON LUMBAR SPINE WO [...] 1:31 AM - Electronically signed by Vasquez SEPULVEDA: COCO Report ID: [id number] Reading Location: [id number] Procedure Note Vasquez Travis MD - 10/06/2024 [...] 1:31 AM - Electronically signed by Vasquez SEPULVEDA: COCO Report ID: [id number] Reading Location: [id number] Daphne Belcher NP IM CT PROCEDURES Final Result * CT Chest Abdomen Pelvis W Contrast (10/06/2024 1:08 AM STRUCTURAL STEEL PAINTER) Anatomical Region Laterality Modality Body N/A Computed Tomogra phy 10/06/2024 1:23 AM STRUCTURAL STEEL PAINTER Narrative 10/06/2024 1:30 AM STRUCTURAL STEEL PAINTER EXAM DESCRIPTION: CT CHEST ABDOMEN PELVIS W [...] Vasquez Travis M.D. KH: COCO Report ID: [id number] Reading Location: [place] [address] Procedure Note Vasquez Travis MD - 10/06/2024 [...] 1:30 AM - Electronically signed by Vasquez SEPULVEDA: COCO Report ID: [id number] Reading Location: [id number] Donaldmed CrabtreeYejustyna VANN IMG CT PROCEDURES Final Result * XR Knee Left 3 Views (10/06/2024 12:26 AM STRUCTURAL STEEL PAINTER) Anatomical Region Laterality Modality Lower Extremities, Knee Left Computed Radiography 10/06/2024 12:2 9 AM STRUCTURAL STEEL PAINTER Narrative 10/06/2024 12:30 AM STRUCTURAL STEEL PAINTER EXAM DESCRIPTION: XR KNEE LEFT 3 VIEWS [...] signed by Vasquez SEPULVEDA: COCO Report ID: [id number] Reading Location: [id number] Procedure Note Vasquez Travis MD - 10/06/2024 EXAM DESCRIPTION: XR KNEE LEFT 3 VIEWS REASON FOR STUDY: left knee pain after getting out of car she thought wasin percy, but in reverse Pt arrived stating that [...] 12:30 AM - Electronically signed by Vasquez Travis M.D. KH: COCO Report ID: [id number] Reading Location: [place] [address] Krishna Parham DO IMG XR PROCEDURES Final Res ult * eGFR (10/05/2024 11:58 PM STRUCTURAL STEEL PAINTER) eGFR 84 >=60 mL/min/1. 73 m2 Comment: [...] was last reviewed 2021. Testing performed by: [address] [address] Blood 10/05/2024 11:5 8 PM STRUCTURAL STEEL PAINTER 10/06/2024 12:14 AM STRUCTURAL STEEL PAINTER us Krishna Parham DO LAB BLOOD ORDERABLES Final Result [facility] [address] [facility] Department [place] [address] * (ABNORMAL) Differential, auto (10/05/2024 11:58 PM STRUCTURAL STEEL PAINTER) Neutrophil abs 15.6(H) 1.5 - 6.5 K/cumm Comment:Testing performed by : [address] [address] Imm gran abs 0.3(H) 0.0 - 0.1 K/cumm LUIS MIGUEL Comment:Testing performed by : [address] [address] Lymphocyte abs 1.1 0.8 - 3.3 K/cumm LUIS MIGUEL Comment:Testing performed by : [address] [address] Monocyte abs 0.7 0.2 - 0.8 K/cumm LUIS MIGUEL Comment:Testing performed by : [address] [address] Eosinophil abs 0.0 0.0 - 0.5 K/cumm LUIS MIGUEL Comment:Testing performed by : [address] [address] Basophil abs 0.0 0.0 - 0.1 K/cumm LUIS MIGUEL Comment:Testing performed by : [address] [address] Neutrophil pct 88.5 % LUIS MIGUEL Comment: Interpretive Data Percent cell count reference ranges are not reported, since discordance with absolute values may lead to misinterpretation of CBC data. Current Interpretive Data was last revised on 2018. Testing performed by: [address] [address] Imm gran pct 1.5 % LUIS MIGUEL Comment: Interpretive Data Percent cell count reference ranges are not reported, since discordance with absolute values may lead to misinterpretation of CBC data. Current Interpretive Data was last revised on 2018. Testing performed by: [address] [address] Lymphocyte pct 6.1 % LUIS MIGUEL Comment: Interpretive Data Percent cell count reference ranges are not reported, since discordance with absolute values may lead to misinterpretation of CBC data. Current Interpretive Data was last revised on 2018. Testing performed by: [address] [address] Monocyte pct 3.7 % LUIS MIGUEL Comment: Interpretive Data Percent cell count reference ranges are not reported, since discordance with absolute values may lead to misinterpretation of CBC data. Current Interpretive Data was last revised on 2018. Testing performed by: [address] [address] Eosinophil pct 0.0 % LUIS MIGUEL Comment: Interpretive Data Percent cell count reference ranges are not reported, since discordance with absolute values may lead to misinterpretation of CBC data. Current Interpretive Data was last revised on 2018. Testing performed by: [address] [address] Basophil pct 0.2 % LUIS MIGUEL Comment: Interpretive Data Percent cell count reference ranges are not reported, since discordance with absolute values may lead to misinterpretation of CBC data. Current Interpretive Data was last revised on 2018. Testing performed by: [address] [address] Blood 10/05/2024 11:5 8 PM STRUCTURAL STEEL PAINTER 10/06/2024 12:14 AM STRUCTURAL STEEL PAINTER us Krishna Parham DO LAB BLOOD ORDERABLES Final Result LUIS MIGUEL RAMEY [address] [facility] Department [place] [address] * (ABNORMAL) Urinalysis reflex to microscopic and culture Urine, bladder (10/05/2024 11:58 PM STRUCTURAL STEEL PAINTER) Color, ur Yellow Yellow Comment:Testing performed by : [facility], [address] [place] [address]., [address] Clarity, ur Clear Clear LUIS MIGUEL Comment:Testing performed by : [address], [place]., [address] Specific gravity, ur 1.036(H) 1.003 - 1.030 LUIS MIGUEL Comment:Testing performed by : [address], [place]., [address] pH, urine 5.5 LUIS MIGUEL Comment: Interpretive Data U rine pH is affected by diet, medications, systemic acid-base disturbances, and renal tubular function. pH may affect urinary stone formation. For example, urine pH below 6.0 may help reduce the tendency for calcium phosphate stones and pH greater than 6.0 may reduce the tendency for uric acid stone formation. Source: [facility] [employer] Current Interpretive Data was last revised on 2017 Testing performed by: [address] [address] Protein, ur ql Trace(A) Negative LUIS MIGUEL Comment:Testing performed by : [address] [address] Glucose, ur ql Negative Negative LUIS MIGUEL Comment:Testing performed by : [address] [address] Ketones, ur Negative Negative LUIS MIGUEL Comment:Testing performed by : [address] [address] Bilirubin, ur Negative Negative LUIS MIGUEL Comment:Testing performed by : [address] [address] Blood, ur Negative Negative LUIS MIGUEL Comment:Testing performed by : [address] [address] Urobilinogen, ur <2.0 <2.0 mg/dL LUIS MIGUEL Comment:Testing performed by : [address] [address] Nitrite, ur Negative Negative LUIS MIGUEL Comment:Testing performed by : [address] [address] Leukocyte esterase, ur 1+(A) Negative LUIS MIGUEL Comment:Testing performed by : [address] [address] UA reflex comment Reflex to microscopic UA will be performed. LUIS MIGUEL Comment:Testing performed by : [address] [address] Urine, bladder 10/05/2024 11 :58 PM STRUCTURAL STEEL PAINTER 10/06/2024 12:14 AM STRUCTURAL STEEL PAINTER Krishna Parham DO LAB MICROBIOLOGY - GENERAL ORDERABLES Final Result [facility] RAME[facility] [address] [facility] Department [place] [address] * (ABNORMAL) CBC with auto differential (10/05/2024 11:58 PM STRUCTURAL STEEL PAINTER) WBC 17.7(H) 3.8 - 9.9 K/cumm Comment:Testing performed by : [address] [address] Hgb 13.1 11.9 - 15.5 g/dL LUIS MIGUEL Comment:Testing performed by : [address] [address] Hct 40.8 35.6 - 45.5 % LUIS MIGUEL Comment:Testing performed by : [address] [address] Plt 325 150 - 400 K/cumm LUIS MIGUEL Comment:Testing performed by : [address] [address] MPV 9.4 9.1 - 12.3 fL LUIS MIGUEL Comment:Testing performed by : [address] [address] RBC 4.54 3.90 - 5.20 M/cumm LUIS MIGUEL Comment:Testing performed by : [address] [address] MCV 89.9 81.3 - 96.4 fL LUIS MIGUEL Comment:Testing performed by : [address] [address] MCH 28.9 27.1 - 33.3 pg LUIS MIGUEL RAMEY Comment:Testing performed by : [address] [place]., [address] MCHC 32.1(L) 32.3 - 35.7 g/dL LUIS MIGUEL RAMEY Comment:Testing performed by : [address] [address] RDW CV 13.9 11.1 - 14.9 % LUIS MIGUEL RAMEY Comment:Testing performed by : [address] [address] RDW SD 45.4 35.7 - 48.1 fL LUIS MIGUEL Comment:Testing performed by : [address] [address] NRBC abs 0.00 0.00 - 0.01 K/cumm LUIS MIGUEL Comment:Testing performed by : [address] [address] Blood 10/05/2024 11:5 8 PM STRUCTURAL STEEL PAINTER 10/06/2024 12:14 AM STRUCTURAL STEEL PAINTER Krishna Parham DO LAB BLOOD ORDERABLES Final Result [facility] MIG[facility]EL [address] [facility] Department [place] [address] * (ABNORMAL) Urinalysis, microscopic only (10/05/2024 11:58 PM STRUCTURAL STEEL PAINTER) WBC, ur 0-5 0 - 5 /HPF Comment:Testing performed by : [address] [address] RBC, ur 6-10(A) 0 - 2 /HPF LUIS MIGUEL Comment:Testing performed by : [address] [address] Epithelial cells, squamous, ur 6-10(A) 0 - 5 /HPF LUIS MIGUEL Comment:Testing performed by : [address] [address] Mucous, ur Present(A) LUIS MIGUEL RAMEY Comment:Testing performed by : [address] [address] Culture Reflex Comment Reflex conditions for urine culture (WBC >10) not met. LUIS MIGUEL RAMEY Comment:Testing performed by : [address] [address] Urine, bladder 10/05/2024 11 :58 PM STRUCTURAL STEEL PAINTER 10/06/2024 12:14 AM STRUCTURAL STEEL PAINTER us Krishna Parham DO LAB URINE ORDERABLES Final Result [facility] [address] [facility] Department [place] [address] * Comprehensive metabolic panel (10/05/2024 11:58 PM STRUCTURAL STEEL PAINTER) Sodium 141 135 - 145 mmol/L Comment:Testing performed by : [address] [address] Potassium, pl 4.1 3.3 - 4.9 mmol/L LUIS MIGUEL Comment:Testing performed by : [address] [address] Chloride 102 97 - 110 mmol/L LUIS MIGUEL Comment:Testing performed by : [address] [address] CO2 26 22 - 32 mmol/L LUIS MIGUEL Comment:Testing performed by : [address] [address] Anion gap 13 2 - 15 mmol/L LUIS MIGUEL Comment:Testing performed by : [address] [address] BUN 21 6 - 25 mg/dL LUIS MIGUEL Comment:Testing performed by : [address] [address] Creatinine 0.80 0.60 - 1.10 mg/dL LUIS MIGUEL Comment:Testing performed by : [address] [address] Glucose 180 70 - 199 mg/dL LUIS [...] classification and Diagnosis of Diabetes Diabetes Care 202; 46: S19-S40. Current interpretive data was last revised 2022. Testing performed by: [address] [address] Calcium 9.8 8.5 - 10.3 mg/dL LUIS MIGUEL Comment:Testing performed by : [address] [address] Bilirubin, total 0.3 0.1 - 1.2 mg/dL LUIS MIGUEL Comment:Testing performed by : [address] [address] Protein, pl 7.2 6.5 - 8.5 g/dL LUIS MIGUEL Comment:Testing performed by : [address] [address] Albumin 4.2 3.5 - 5.0 g/dL LUIS MIGUEL Comment:Testing performed by : [address] [address] Alk phos 115 40 - 130 Units/L LUIS MIGUEL Comment:Testing performed by : [address] [address] ALT 23 7 - 45 Units/L LUIS MIGUEL Comment:Testing performed by : [address] [address] AST 18 10 - 45 Units/L LUIS MIGUEL Comment:Testing performed by : [address] [address] Blood 10/05/2024 11:5 8 PM STRUCTURAL STEEL PAINTER 10/06/2024 12:14 AM STRUCTURAL STEEL PAINTER us Krishna Parham DO LAB BLOOD ORDERABLES Final Result [facility] MIG[facility] RAMEY [address] [facility] Department of Laboratories [place], [place] [id number] * Albumin Creatinine Ratio, Urine (08/13/2024 10:45 [...] AM CDT FASTING:YES FASTING: YES Magdalena Roa PERMACULTURE CONTRACTOR LAB URINE ORDERABLES Final Re sult Performing Organization Address [facility] de Phone Number [facility] [address] [place] [address] * (ABNORMAL) Hemoglobin A1c (08/13/2024 10:45 AM [...] 08/14/2024 3:30 AM CDT FASTING:YES FASTING: YES us Magdalena Roa PERMACULTURE CONTRACTOR LAB BLOOD ORDERABLES Final Re sult [facility] [address] [place] [address] * (ABNORMAL) Lipid panel (08/13/2024 10:45 AM CDT) Pathologist [facility] Cholesterol 188 <200 mg/dL [facility] HDL 53 > OR = 50 mg/dL [facility] Triglycerides 125 <150 mg/dL [facility] LDL 111(H) mg/dL (calc) [facility] Comment: Reference range: <100 Desirable range <100 mg/dL for primary prevention; <70 mg/dL for patients with CHD or diabetic patients with > or = 2 CHD risk factors. LDL-C is now calculated using the Maryan calculation, which is a validated novel method providing better accuracy than the Friedewald equation in the estimation of LDL-C. Henri MAI et al. ODESSA. 2013;310(19): 5121-8711 (http://education.Waveseer/faq/HGS706) Chol/HDL ratio 3.5 <5.0 (calc) [facility] Non-HDL, (LDL+VLDL) 135(H) <130 mg/dL (calc) [facility] Comment: For patients with diabetes plus 1 major ASCVD risk factor, treating to a non-HDL-C goal of <100 mg/dL (LDL-C of <70 mg/dL) is considered a therapeutic option. Blood 08/13/2024 10:4 5 AM CDT 08/13/2024 10:46 AM CDT Narrative [facility] - 08/14/2024 3:30 AM CDT FASTING:YES FASTING: YES us Magdalena Roa NP LAB BLOOD ORDERABLES Final Re sult [facility] [address] [place] [address] * Hepatitis C antibody (01/29/2023 11:12 AM CDT) [facility] Hep C Ab Non Reactive Non Reactive [facility] - 01 Comment: HCV antibody alone does not differentiate between previously resolved infection and active infection. Equivocal and Reactive HCV antibody results should be followed up with an HCV RNA test to support the diagnosis of active HCV infection. Blood 01/29/2023 11:1 2 AM CDT 01/29/2023 Narrative [facility] - 01/30/2023 9:36 AM CDT Performed at: 01 - [address] [id number] Hot Dipper: Chace Salvador PhD, Phone: [phone] Magdalena Roa NP LAB MICROBIOLOGY - GENERAL OR DERABLES Final Result [facility] * Diagnostic Mammogram Bilateral [...] Most Recently Relevant to Health Maintenance Insurance [facility] [place] [address] [place] [id number] Advance Directives For more information, please contact: [phone] * Full Code (Latest Code Status on File) Date Activated Date Inactivated Comments 02/14/2024 5:47 PM 02/15/2024 5:57 PM Care Teams Sneller Hand Relationship Specialty Start Date End Date Magdalena Roa NP [address] [place] [address] PCP - General Internal Medicine 02/04/23
--- OUTSIDE RECORDS SUMMARY | 2024-12-26 15:52 | XMS_ITS | Encounter Summary ---
Author Organization [facility] Healthcare Address [address] [place] [address] Care Team Providers Care Kiln Cleaner Name Role Phone Magdalena Roa LIBRARY PARAPROFESSIONAL Primary Care Provider [phone] Encounter Details Date Type Department Care Team (Late st Contact Info) Description 12/26/2024 Telephone [facility] Medical Group Family Medicine [address] [place] [address] Magdalena Roa NP [address] [place] [address] Social History Tobacco Use Types [...] on file Legal Sex 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 Will go to Emergency room or Urgent care to have looked at. [employer] documented in this encounter Plan of Treatment Not on file documented as of this encounter Visit Diagnoses Not on filedocumented in this encounter Care Teams Kiln Cleaner Relationship Specialty Start Date End Date Magdalena Roa NP [address] [facility] [address] [place] [address] PCP - General Internal Medicine 02/04/23 documented as of this encounter
--- OUTSIDE RECORDS SUMMARY | 2024-12-26 15:52 | XMS_ITS | Encounter Summary ---
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
--- OUTSIDE RECORDS SUMMARY | 2024-12-26 15:52 | XMS_ITS | Encounter Summary ---
Author Organization [facility] Healthcare Address [address] [place] [address] Care Team Providers Care Radio Mechanic Apprentice Name Role Phone Magdalena Roa SECOND WATCH SERGEANT Primary Care Provider [phone] Encounter Details Date Type Department Care Team (Late st Contact Info) Description 12/25/2024 Telephone [facility] Medical [facility] Family Medicine [address] [place] [address] Magdalena Roa NP [address] [place] [address] Social History Tobacco Use Types [...] on file Legal Sex Female 4:52 AM INTAKE ASSESSOR Gender Identity Not on file Sexual Orientation Not on file 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
--- OUTSIDE RECORDS SUMMARY | 2024-12-26 15:53 | XMS_ITS | Clinical Summary ---
Author Organization [facility] [address] [facility] Address [facility]5 [place] [address] Care Team Providers Care Internal Audit Manager Name Role Phone Magdalena Roa NP Primary Care Provider [phone] Allergies Active Allergy Reactions Criticality Noted Date [...] 09/03/2024 Assessment & Plan (12/03/2024 12:01 PM PUBLIC INFORMATION OFFICER): Echocardiogram noted grade 2 LV diastolic dysfunction. Per last note by Dr. Hercules this was reviewed and appreciated to be more indeterminate. Will continue to work on risk factor reduction with weight loss and regular exercise. Assessment & Plan (09/03/2024 11:48 AM PUBLIC INFORMATION OFFICER): Echocardiogram noted grade 2 LV diastolic dysfunction. [...] 04/19/2021 Assessment & Plan (12/03/2024 12:02 PM PUBLIC INFORMATION OFFICER): Stress induced chest pain with a negative [...] review. Assessment & Plan (09/03/2024 11:50 AM PUBLIC INFORMATION OFFICER): Stress induced chest pain with a negative [...] 10/27/2020 Assessment & Plan (10/09/2024 11:42 AM PUBLIC INFORMATION OFFICER): Discussed the patient's BMI. The BMI is above average. BMI management plan is completed. BMI Follow-up includes: nutrition counseling, exercise counseling and education provided. Snoring 10/27/2020 Assessment & Plan (12/11/2024 9:57 AM PUBLIC INFORMATION OFFICER): The patient presents with snoring and daytime fatigue. Per her request, I have ordered a home sleep test and she will follow up here in 4 months. Assessment & Plan (10/27/2020 12:47 PM PUBLIC INFORMATION OFFICER): Will refer for sleep study Sleep disturbance 10/27/2020 Assessment & Plan (10/27/2020 12:47 PM PUBLIC INFORMATION OFFICER): Will refer for sleep study Breast cancer screening by mammogram 09/10/2020 Assessment & Plan (09/10/2020 11:38 AM PUBLIC INFORMATION OFFICER): Retrieve records from previous pcp. Hypothyroidism 09/10/2020 Assessment & Plan (04/29/2022 7:17 AM CDT): Continue medication same dosing at this time, refill as needed. Assessment & Plan (01/21/2022 12:40 PM CDT): Labs entered, continue medications the same time Assessment & Plan (05/08/2021 1:15 PM CDT): Fasting labs entered, will notify patient of results as available Assessment & Plan (10/27/2020 12:46 PM PUBLIC INFORMATION OFFICER): Will repeat labs, continue medication same at this time Assessment & Plan (09/10/2020 11:39 AM PUBLIC INFORMATION OFFICER): Fasting labs entered, will notify patient of results as available Continue medication same at this time. Vitamin D deficiency 09/10/2020 Assessment & Plan (10/27/2020 12:46 PM PUBLIC INFORMATION OFFICER): Will repeat labs, continue medication same at this time Assessment & Plan (09/10/2020 11:39 AM PUBLIC INFORMATION OFFICER): Fasting labs entered, will notify patient of results as available Continue medication same at this time. Hypertension associated with diabetes 09/10/2020 Overview (08/15/2023): Continue blood pressure medicine daily as directed Assessment & Plan (12/03/2024 12:00 PM PUBLIC INFORMATION OFFICER): Above goal at home. Increase Amlodipine to 10 mg daily. She will keep a blood pressure diary and we will touch base in 1-2 weeks to review. Assessment & Plan (09/03/2024 11:49 AM PUBLIC INFORMATION OFFICER): She will stop hydrochlorothiazide and we with [...] available Assessment & Plan (09/10/2020 11:39 AM PUBLIC INFORMATION OFFICER): Fasting labs entered, will notify patient of results as available Continue medication same at this time. Hyperlipidemia 09/10/2020 Assessment & Plan (12/03/2024 12:00 PM PUBLIC INFORMATION OFFICER): Continue atorvastatin 80 mg daily and zetia 10 mg daily. Planning to repeat with PCP. Assessment & Plan (09/03/2024 11:47 AM PUBLIC INFORMATION OFFICER): Continue atorvastatin 80 mg daily. Assessment & [...] session Assessment & Plan (09/10/2020 11:39 AM PUBLIC INFORMATION OFFICER): Fasting labs entered, will notify patient of results as available Continue medication same at this time. Memory changes 09/10/2020 Assessment & Plan (10/03/2020 12:35 PM PUBLIC INFORMATION OFFICER): We reviewed recent normal mri of head. Advised referral to neurology for further evaluation and treatment. Assessment & Plan (09/10/2020 11:38 AM PUBLIC INFORMATION OFFICER): Will taper/discontinue wellbutrin. Will order mri of head to evaluate further. Chronic intractable headache 09/10/2020 Assessment & Plan (10/27/2020 12:46 PM PUBLIC INFORMATION OFFICER): Wants to hold/not schedule neuro referral at this time. Will continue medication the same. Will refer for sleep study. Assessment & Plan (10/03/2020 12:36 PM PUBLIC INFORMATION OFFICER): We reviewed recent normal mri of head. Advised referral to neurology for further evaluation and treatment. We discussed adding inderal or other daily medication for prevention, patient wants to start with changing the lexapro first. Assessment & Plan (09/10/2020 11:39 AM PUBLIC INFORMATION OFFICER): Will evaluate further with mri of head Anxiety 09/10/2020 Assessment & Plan (04/29/2022 7:16 AM CDT): We will increase her cymbalta to 90mg daily. She was advised to notify the office over the next 4w - if ineffective will try adding buspar tid. Assessment & Plan (12/10/2021 11:48 AM PUBLIC INFORMATION OFFICER): Continue with cymbalta 60mg daily Add bid/prn xanax - advised of potential addictiveness, she expressed understanding. We discussed changing cymbalta or adding buspar tid over the coming month if needing xanax routinely. Assessment & Plan (10/15/2021 3:24 PM PUBLIC INFORMATION OFFICER): Increase cymbalta from 60mg every day to 90mg every day Assessment & Plan (09/17/2021 1:37 PM PUBLIC INFORMATION OFFICER): Stable, continue meds same at this time Assessment & Plan (05/08/2021 1:17 PM CDT): Will increase cymbalta. Assessment & Plan (10/27/2020 12:46 PM PUBLIC INFORMATION OFFICER): Continue medication same Assessment & Plan (10/03/2020 12:37 PM PUBLIC INFORMATION OFFICER): Taper lexapro every other day x 6 days, then discontinue. Will start cymbalta when taper is finished. We discussed gi workup pending resolution of loose stools. Will also retrieve consult notes from previous pcp to determine date and results of last cscope. Assessment & Plan (09/10/2020 11:40 AM PUBLIC INFORMATION OFFICER): Taper wellbutrin 1 tab every other day [...] (3.9 % thirty day risk of , GA or cardiac arrest). No further cardiac testing [...] nutrition counseling, exercise counseling and education provided. Morea eye disease of left eye 06/14/2022 08/09/2022 [...] 01/22/20 Assessment & Plan (10/15/2021 3:24 PM PUBLIC INFORMATION OFFICER): Increase metformin to 500mg bid Encouraged heart [...] session. Assessment & Plan (12/10/2021 11:49 AM PUBLIC INFORMATION OFFICER): Discontinue metformin Will initiate topamax 25mg bid for appetite suppression. She was advised that this is an off label utilization and due to concurrent cymbalta she has a risk for serotonin syndrome. She expressed understanding and desire to proceed. She will f/u in 4w for weight management, sooner as needed. Assessment & Plan (10/15/2021 3:24 PM PUBLIC INFORMATION OFFICER): Increase metformin to 500mg bid Encouraged heart healthy diet, exercise 4x/week for 30min each session Assessment & Plan (09/17/2021 1:38 PM PUBLIC INFORMATION OFFICER): Obesity is unchanged. Discussed the patient's BMI. [...] 01/21/2022 Assessment & Plan (09/10/2020 11:38 AM PUBLIC INFORMATION OFFICER): tdap today Encounters Date Type Department Care Team Description 12/26/2024 Telephone [facility] [address] [place] [address] [place] [phone] Magdalena Roa NP 12/25/2024 Telephone [facility] [address] [facility] [address] [place] [address] [place] [phone] Magdalena Roa NP 12/24/2024 Results Follow-Up [facility] [address] [place] [phone] Michoacano Galindo MD 12/22/2024 2:29 PM PUBLIC INFORMATION OFFICER - 12/22/2024 11:59 PM PUBLIC INFORMATION OFFICER Hospital Encounter [facility] MRI [address] [place] [address] Memory changes Discharge Disposition: Discharge to home or self care 12/11/2024 9:30 AM PUBLIC INFORMATION OFFICER Office Visit [facility] [address] [place] [phone] Eulogio Yost MD Poor sleep; Snoring 12/03/2024 11:00 AM PUBLIC INFORMATION OFFICER Office Visit [facility] 8th [place] [address] [place] [phone] Nima Jacques NP Chest pain, unspecified type (Primary Dx); Hypertension associated with diabetes (HCC); Mixed hyperlipidemia; Echocardiogram abnormal 11/29/2024 3:00 PM PUBLIC INFORMATION OFFICER Clinical Support [facility] [address] [place] [address] [place] [phone] Dysuria (Primary Dx) 11/19/2024 Telephone [facility] [address] [place] [phone] Michoacano Galindo MD Test Results (RESULTS ) 11/16/2024 10:45 AM PUBLIC INFORMATION OFFICER Lab [facility] Medical Office [address]ld[address] OP Lab [address] [place] [phone] Memory changes 11/16/2024 10:00 AM PUBLIC INFORMATION OFFICER Office Visit [facility] [address] [place] [phone] Michoacano Galindo MD Poor sleep (Primary Dx); Memory changes; Snoring 11/01/2024 Telephone [facility] [address] [place] [address] [place] [phone] Magdalena Roa NP Med Refill 10/15/2024 1:00 PM PUBLIC INFORMATION OFFICER - 10/15/2024 1:30 PM PUBLIC INFORMATION OFFICER Surgery [facility] GI Lab [address] [place] [address] Deshaun West MD COLON BIOPSY 10/15/2024 12:52 PM PUBLIC INFORMATION OFFICER Anesthesia Event [facility] GI Lab [address] [place] [address] Cheri Cardenas MD Cannon, James J., MD 10/15/2024 11:59 AM PUBLIC INFORMATION OFFICER - 10/15/2024 2:27 PM PUBLIC INFORMATION OFFICER Hospital Encounter [facility] GI Lab [address] [place] [address] Deshaun West MD Screening for colon cancer Discharge Disposition: Discharge to home or self care 10/10/2024 Orders Only [facility] Gastroenterology at [place] [phone] [facility] [address] [place] [address] Deshaun West MD Screening for colon cancer (Primary Dx) 10/09/2024 11:30 AM PUBLIC INFORMATION OFFICER Office Visit [facility] [place] [address] [place] [address] Rd [address] [place] [address] Magdalena Roa NP Cough with exposure to severe acute respiratory syndrome coronavirus 2 (SARS-CoV-2) (Primary Dx); BMI 29.0-29.9,adult; Dysuria; Anxiety; Memory changes; Abnormal CBC 10/06/2024 12:54 AM PUBLIC INFORMATION OFFICER - 10/06/2024 2:30 AM PUBLIC INFORMATION OFFICER Emergency [facility] Emergency Department [address] [place] [address] Krishna Parham DO Microscopic hematuria (Primary Dx); Contusion of left knee, initial encounter; Traumatic ecchymosis Discharge Disposition: Discharge to home or self care 10/05/2024 Nurse Triage [facility] [place] [address] [facility] [address] [place] [address] Magdalena Roa NP from Last 3 Months [...] on file Legal Sex Female 4:52 AM PUBLIC INFORMATION OFFICER Gender Identity Not on file Sexual Orientation Not on file 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 Not on file Not on file Obstetrics History Last Filed Vital Signs Vital Sign Reading Time Taken Comments Blood Pressure 126/68 12/11/2024 9:25 AM PUBLIC INFORMATION OFFICER Pulse 70 12/11/2024 9:25 AM PUBLIC INFORMATION OFFICER Temperature 36.9 C (98.4 F) 12/11/2024 9:25 AM PUBLIC INFORMATION OFFICER Respiratory Rate 18 12/11/2024 9:25 AM PUBLIC INFORMATION OFFICER Oxygen Saturation 94% 12/11/2024 9:25 AM PUBLIC INFORMATION OFFICER Inhaled Oxygen Concentration - - Weight 70.3 kg (155 lb) 12/03/2024 10:47 AM PUBLIC INFORMATION OFFICER Height 154.9 cm (5' 1 ) 12/11/2024 9:25 AM PUBLIC INFORMATION OFFICER Body Mass Index 29.29 12/03/2024 10:47 AM PUBLIC INFORMATION OFFICER Plan of Treatment Health Maintenance Due Date [...] history exists Medical Devices Implanted Type Area Technology Manager Device Identifier Shelf Expiration Date Model / Serial / Lot Sulphur MeeWee Oscar Upsylon 35.4cm Elongation Profile Lightweight Large Pore Low [id number] - [id number] Implanted:Qty: 1 on 02/14/2024 by Lam Munoz MD at [facility] Mesh N/A: Pelvis [employer] Oscar 07/30/2026 [id number] / / [id number] [employer] Sling Urinary Incontinence Female Stress Short Desara Blue Antonio-[id number] - [id number] Implanted:Qty: 1 on 02/14/2024 by Lam Munoz MD at [facility] N/A: Pelvis [employer] 07/21/2026 [id number] / / [id number] Procedures Procedure Name Priority Date/Time Associated Diagnosis Comments MRI BRAIN WO CONTRAST Schedule Routine, Read Routine (OP Routine) 12/22/2024 3:09 PM PUBLIC INFORMATION OFFICER Memory changes POCT URINALYSIS DIPSTICK Routine 11/29/2024 3:33 PM PUBLIC INFORMATION OFFICER Dysuria URINE CULTURE Routine 11/29/2024 3:21 PM PUBLIC INFORMATION OFFICER Dysuria VITAMIN B12 Routine 11/16/2024 11:03 AM PUBLIC INFORMATION OFFICER Memory changes POCT GLUCOSE DEVICE Routine 10/15/2024 1 :34 PM PUBLIC INFORMATION OFFICER SURGICAL PATHOLOGY Routine 10/15/2024 1:02 PM PUBLIC INFORMATION OFFICER Screening for colon cancer COLONOSCOPY 10/15/2024 12:54 PM PUBLIC INFORMATION OFFICER COLON BIOPSY 10/15/2024 12:54 PM PUBLIC INFORMATION OFFICER Screening for colon cancer POCT GLUCOSE DEVICE Routine 10/15/2024 12:37 PM PUBLIC INFORMATION OFFICER CBC WITH AUTO DIFFERENTIAL Routine 10/09/2024 1:16 PM PUBLIC INFORMATION OFFICER Abnormal CBC POC INFLUENZA A/B, COVID-19 ANTIGEN Routine 10/09/2024 11:59 AM PUBLIC INFORMATION OFFICER Cough with exposure to severe acute respiratory syndrome coronavirus 2 (SARS-CoV-2) POCT URINALYSIS DIPSTICK Routine 10/09/2024 11:57 AM PUBLIC INFORMATION OFFICER Dysuria POCT GLUCOSE DEVICE Routine 10/06/2024 1 :15 AM PUBLIC INFORMATION OFFICER CT RECON LUMBAR SPINE WO CONTRAST ED 10/06/2024 1:08 AM PUBLIC INFORMATION OFFICER CT CHEST ABDOMEN PELVIS W CONTRAST ED 10/06/2024 1:08 AM PUBLIC INFORMATION OFFICER XR KNEE LEFT 3 VIEWS ED 10/06/2024 12:26 AM PUBLIC INFORMATION OFFICER EGFR STAT 10/05/2024 11:58 PM PUBLIC INFORMATION OFFICER URINALYSIS, MICROSCOPIC ONLY STAT 10/05/2024 11:58 PM PUBLIC INFORMATION OFFICER DIFFERENTIAL AUTO STAT 10/05/2024 11:58 PM PUBLIC INFORMATION OFFICER CBC WITH AUTO DIFFERENTIAL STAT 10/05/2024 11:58 PM PUBLIC INFORMATION OFFICER COMPREHENSIVE METABOLIC PANEL STAT 10/05/2024 11:58 PM PUBLIC INFORMATION OFFICER URINALYSIS AND REFLEX TO MICROSCOPIC AND CULTURE STAT 10/05/2024 11:58 PM PUBLIC INFORMATION OFFICER HEMOGLOBIN A1C Routine 08/13/2024 10:45 AM CDT [...] MRI Brain WO Contrast (12/22/2024 3:09 PM PUBLIC INFORMATION OFFICER) Anatomical Region Laterality Modality Head and Neck N/A Magnetic Resonan ce 12/24/2024 10:1 2 AM PUBLIC INFORMATION OFFICER Narrative 12/24/2024 10:18 AM PUBLIC INFORMATION OFFICER EXAM DESCRIPTION: MRI BRAIN WO CONTRAST REASON [...] Dago Medrano M.D., MM T: Report ID: [id number] Reading Location: [id number] Procedure Note Dago Medrano MD - 12/24/2024 EXAM DESCRIPTION: MRI BRAIN WO CONTRAST REASON FOR STUDY: Memory Loss Memory loss f/6 months. TECHNIQUE: Multiplanar imaging includes non-contrasted T1, T2, FLAIR, and diffusion with ADC map sequences. Additional sequence(s) sensitive [employer]. Images stored on PACS. COMPARISON: No prior [...] Dago Medrano M.D. MM T: Report ID: [id number] Reading Location: [id number] Michoacano Galindo MD IMG MRI PROCEDURES Final Resul t * (ABNORMAL) POCT urinalysis dipstick (11/29/2024 3:33 PM PUBLIC INFORMATION OFFICER) Pathologist [facility] Color, Urine, POC Natalie Clarity, ur, POC Cloudy(A) Clear Glucose, ur, POC Negative Negative MG/DL Bilirubin, ur, POC Negative Negative, Small, Moderate, Large Ketones, ur, POC Negative Negative Specific [place], POC 1.030 1.003 - 1.030 Blood, ur, POC Large(A) Negative pH, ur, POC 5.5 5.0 - 8.0 Protein, ur, POC 100.(A) Negative Urobilinogen, urine, POC 0.2 0.2 - 1.0 mg/dL Nitrite, ur, POC Negative Negative Leukocytes, ur, POC Small(A) Negative Lot Number cloudy Urine 11/29/2024 3:33 PM PUBLIC INFORMATION OFFICER Magdalena Roa CORE CUTTER POINT OF CARE TEST ORDERABLES Final Result * Urine culture Urine, clean voided (11/29/2024 3:21 PM PUBLIC INFORMATION OFFICER) [facility] Urine culture [facility] Comment: CULTURE, URINE, ROUTINE Micro Number: [id number] Test Status: Final Specimen Source: Not given Specimen Quality: Adequate Result: No Growth Urine, clean voided 11/29/2024 3:21 PM PUBLIC INFORMATION OFFICER 11/30/2024 3:23 AM PUBLIC INFORMATION OFFICER Magdalena Roa CORE CUTTER LAB MICROBIOLOGY - GENERAL OR DERABLES Final Result [facility] [address] [place] [address] * Vitamin B12 (11/16/2024 11:03 AM PUBLIC INFORMATION OFFICER) [facility] Vitamin B12 311 230 - 1,250 pg/mL Blood 11/16/2024 11:0 3 AM PUBLIC INFORMATION OFFICER 11/16/2024 12:34 PM PUBLIC INFORMATION OFFICER Michoacano Galindo MD LAB BLOOD ORDERABLES Final Res ult Performing Organization Address [facility] Co de Phone Number [address] [address] * POCT glucose (10/15/2024 1:34 PM PUBLIC INFORMATION OFFICER) Glucose, POC 93 70 - 199 mg/dL Glucose comment 1 Use This Result [facility] Glucose comment 2 RN/MD Notified [facility] Blood 10/15/2024 1:34 PM PUBLIC INFORMATION OFFICER 10/15/2024 1:34 PM PUBLIC INFORMATION OFFICER Deshaun West MD LAB POCT ORDERABLES - DEVICE Fin al Result Performing Organization Address [facility] Co de Phone Number [address] [address] * Surgical pathology (10/15/2024 1:02 PM PUBLIC INFORMATION OFFICER) Tissue (Colon, Biopsy) 10/15/2024 1:02 PM PUBLIC INFORMATION OFFICER Tissue (Colon, Biopsy) 10/15/2024 1:12 PM PUBLIC INFORMATION OFFICER Narrative PATHOLOGY [facility] - 10/16/2024 5:23 PM PUBLIC INFORMATION OFFICER [facility] Department of Pathology [address] [place] [address] Note to Patients: This report may contain [...] : 1965 (Age: 59) Gender: F Address: [address] [place] [address] [facility] #: [id number] Service: Gastro Location: Patient Type: [facility] OUTPATIENT Taken: 10/15/2024 Received: 10/15/2024 Accessioned: [...] Jar 0. jjb/10/15/2024 14:35 HARDIK Chapman, PA ([facility] Microscopic slide review and interpretation for this case was performed at [facility], Department of Surgical Pathology, [address] [facility] [id number], [place] [address] CLIA # [id number] us Deshaun West MD LAB PATHOLOGY ORDERABLES Final R esult PATHOLOGY [facility] * Colonoscopy (10/15/2024 12:54 PM PUBLIC INFORMATION OFFICER) Anatomical Region Laterality Modality Other Narrative Procedure Note Deshaun West MD - 10/15/2024 12:54 PM CST [facility] GI ENDOSCOPY Patient Name: Cira Lugo Procedure Date: 10/15/2024 12:54PM Date of : 1965 Admit Type: Outpatient Age: 59 Gender: Female Attending MD: Deshaun West M.D. Room: [facility] ENDOSCOPY ROOM 06 Note Status: Finalized [...] The scope was passed under direct vision.The [id number]-[id number] colonoscope was introduced through theanus and advanced [...] On: 10/15/2024 12:54 PM Recognized by the [employer] for promoting quality in endoscopy us Deshaun West MD ENDOSCOPY PROCEDURES Final Resul t * POCT glucose (10/15/2024 12:37 PM PUBLIC INFORMATION OFFICER) Pathologist [facility] Glucose, POC 107 70 - 199 mg/dL Glucose comment 1 Use This Result [facility] Glucose comment 2 RN/ Notified [facility] Blood 10/15/2024 12:3 7 PM PUBLIC INFORMATION OFFICER 10/15/2024 12:37 PM PUBLIC INFORMATION OFFICER us Deshaun West MD LAB POCT ORDERABLES - DEVICE Fin al Result [facility] [address] [facility] Department [place] [address] * (ABNORMAL) CBC with auto differential (10/09/2024 1:16 PM PUBLIC INFORMATION OFFICER) [facility] WBC 11.0(H) 3.8 - 10.8 Thousand/u L [...] Diagnostics-S t Noe Blood 10/09/2024 1:16 PM PUBLIC INFORMATION OFFICER 10/09/2024 1:16 PM PUBLIC INFORMATION OFFICER Magdalena Roa CORE CUTTER LAB BLOOD ORDERABLES Final Re sult [email or web address] [address] [place] [address] * POC Influenza A/B, COVID-19 antigen (10/09/2024 11:59 AM PUBLIC INFORMATION OFFICER) [facility] Influenza A Ag, POC Negative Negative [facility] Influenza B Ag, POC Negative Negative [facility] COVID-19 Ag POC Presumptive Negative Presumptive Negative, Invalid [facility] Nasal 10/09/2024 11:5 9 AM PUBLIC INFORMATION OFFICER Magdalena Roa CORE CUTTER POINT OF CARE TEST ORDERABLES Final Result Performing Organization Address City/[facility] Co de Phone Number [facility] [address] * (ABNORMAL) POCT urinalysis dipstick (10/09/2024 11:57 AM PUBLIC INFORMATION OFFICER) Pathologist [facility] Glucose, ur, POC Negative Negative MG/DL Bilirubin, ur, POC Negative Negative, Small, Moderate, Large Ketones, ur, POC Negative Negative Specific [place], POC 1.020 1.003 - 1.030 Blood, ur, POC Negative Negative pH, ur, POC 6.0 5.0 - 8.0 Protein, ur, POC Negative Negative Urobilinogen, urine, POC 1.0 0.2 - 1.0 mg/dL Nitrite, ur, POC Negative Negative Leukocytes, ur, POC Small(A) Negative Lot Number [id number] Comment:08/30/2025 Urine 10/09/2024 11:5 7 AM PUBLIC INFORMATION OFFICER Magdalena Roa CORE CUTTER POINT OF CARE TEST ORDERABLES Final Result * POCT glucose (10/06/2024 1:15 AM PUBLIC INFORMATION OFFICER) Glucose, POC 142 70 - 199 mg/dL Comment:Testing performed by : [address] [address] Glucose comment 1 Use This Result [facility] Comment:Testing performed by : [address], [address] Glucose comment 2 RN/MD Notified [facility]AMEY Comment:Testing performed by : [address] [address] Blood 10/06/2024 1:15 AM PUBLIC INFORMATION OFFICER 10/06/2024 1:15 AM PUBLIC INFORMATION OFFICER Notinfile Unknown LAB POCT ORDERABLES - DEVICE F inal Result [facility] [address] [facility] Department [place] [address] * CT Recon Lumbar Spine WO Contrast (10/06/2024 1:08 AM PUBLIC INFORMATION OFFICER) Anatomical Region Laterality Modality Spine N/A Computed Tomogra phy 10/06/2024 1:30 AM PUBLIC INFORMATION OFFICER Narrative 10/06/2024 1:31 AM PUBLIC INFORMATION OFFICER EXAM DESCRIPTION: CT RECON LUMBAR SPINE WO [...] Vasquez Travis M.D. KH: COCO Report ID: [id number] Reading Location: [place] [address] Procedure Note Vasquez Travis MD - 10/06/2024 [...] Vasquez Travis M.D. KH: COCO Report ID: [id number] Reading Location: [place] [address] us Daphne Belcher CORE CUTTER IMG CT PROCEDURES Final Result * CT Chest Abdomen Pelvis W Contrast (10/06/2024 1:08 AM PUBLIC INFORMATION OFFICER) Anatomical Region Laterality Modality Body N/A Computed Tomogra phy 10/06/2024 1:23 AM PUBLIC INFORMATION OFFICER Narrative 10/06/2024 1:30 AM PUBLIC INFORMATION OFFICER EXAM DESCRIPTION: CT CHEST ABDOMEN PELVIS W [...] 10/06/2024 1:30 AM - Electronically signed by Vasuqez Travis M.D. KH: COCO Report ID: [id number] Reading Location: [place] [address] Procedure Note Vasquez Travis MD - 10/06/2024 [...] Vasquez Travis M.D. KH: COCO Report ID: [id number] Reading Location: [place] [address] Daphne Belcher NP IMG CT PROCEDURES Final Result * XR Knee Left 3 Views (10/06/2024 12:26 AM PUBLIC INFORMATION OFFICER) Anatomical Region Laterality Modality Lower Extremities, Knee Left Computed Radiography 10/06/2024 12:2 9 AM PUBLIC INFORMATION OFFICER Narrative 10/06/2024 12:30 AM PUBLIC INFORMATION OFFICER EXAM DESCRIPTION: XR KNEE LEFT 3 VIEWS [...] signed by Vasquez SEPULVEDA: COCO Report ID: [id number] Reading Location: [id number] Procedure Note Vasquez Travis MD - 10/06/2024 [...] signed by Vasquez SEPULVEDA: COCO Report ID: [id number] Reading Location: [id number] Krishna Parham DO IMG XR PROCEDURES Final Res ult * eGFR (10/05/2024 11:58 PM PUBLIC INFORMATION OFFICER) eGFR 84 >=60 mL/min/1. 73 m2 Comment: [...] was last reviewed 2021. Testing performed by: [address] [address] Blood 10/05/2024 11:5 8 PM PUBLIC INFORMATION OFFICER 10/06/2024 12:14 AM PUBLIC INFORMATION OFFICER Krishna Parham DO LAB BLOOD ORDERABLES Final Result [place] [id number] [facility] Department [place] [address] * (ABNORMAL) Differential, auto (10/05/2024 11:58 PM PUBLIC INFORMATION OFFICER) Neutrophil abs 15.6(H) 1.5 - 6.5 K/cumm Comment:Testing performed by : [address] [address] Imm gran abs 0.3(H) 0.0 - 0.1 K/cumm [facility] Comment:Testing performed by : [address] [address] Lymphocyte abs 1.1 0.8 - 3.3 K/cumm LU[facility] MIGUEL Comment:Testing performed by : [address] [address] Monocyte abs 0.7 0.2 - 0.8 K/cumm LU[facility] MIGUEL Comment:Testing performed by : [address] [address] Eosinophil abs 0.0 0.0 - 0.5 K/cumm [facility] MIGUEL Comment:Testing performed by : [address] [address] Basophil abs 0.0 0.0 - 0.1 K/cumm [facility] MIGUEL Comment:Testing performed by : [address] [address] Neutrophil pct 88.5 % [facility]IG[facility]EL Comment: Interpretive Data Percent cell count reference ranges are not reported, since discordance with absolute values may lead to misinterpretation of CBC data. Current Interpretive Data was last revised on 2018. Testing performed by: [address] [address] Imm gran pct 1.5 % [facility]EL Comment: Interpretive Data Percent cell count reference ranges are not reported, since discordance with absolute values may lead to misinterpretation of CBC data. Current Interpretive Data was last revised on 2018. Testing performed by: [address] [address] Lymphocyte pct 6.1 % [facility] Comment: Interpretive Data Percent cell count reference ranges are not reported, since discordance with absolute values may lead to misinterpretation of CBC data. Current Interpretive Data was last revised on 2018. Testing performed by: [address] [address] Monocyte pct 3.7 % [facility] Comment: Interpretive Data Percent cell count reference ranges are not reported, since discordance with absolute values may lead to misinterpretation of CBC data. Current Interpretive Data was last revised on 2018. Testing performed by: [address] [address] Eosinophil pct 0.0 % LUIS MIGUEL Comment: Interpretive Data Percent cell count reference ranges are not reported, since discordance with absolute values may lead to misinterpretation of CBC data. Current Interpretive Data was last revised on 2018. Testing performed by: [address] [address] Basophil pct 0.2 % [facility] Comment: Interpretive Data Percent cell count reference ranges are not reported, since discordance with absolute values may lead to misinterpretation of CBC data. Current Interpretive Data was last revised on 2018. Testing performed by: [address] [address] Blood 10/05/2024 11:5 8 PM PUBLIC INFORMATION OFFICER 10/06/2024 12:14 AM PUBLIC INFORMATION OFFICER us Krishna Parham DO LAB BLOOD ORDERABLES Final Result [facility] MIG[facility] [place] [address] [facility] Department [place] [address] * (ABNORMAL) Urinalysis reflex to microscopic and culture Urine, bladder (10/05/2024 11:58 PM PUBLIC INFORMATION OFFICER) Color, ur Yellow Yellow Comment:Testing performed by : [address] [address] Clarity, ur Clear Clear LUIS MIGUEL Comment:Testing performed by : [address] [address] Specific gravity, ur 1.036(H) 1.003 - 1.030 [facility] MIGUEL Comment:Testing performed by : [address] [address] pH, urine 5.5 [facility]EL Comment: Interpretive Data U rine pH is affected by diet, medications, systemic acid-base disturbances, and renal tubular function. pH may affect urinary stone formation. For example, urine pH below 6.0 may help reduce the tendency for calcium phosphate stones and pH greater than 6.0 may reduce the tendency for uric acid stone formation. Source: [facility] Current Interpretive Data was last revised on 2017 Testing performed by: [address] [address] Protein, ur ql Trace(A) Negative LUIS MIGUEL Comment:Testing performed by : [address] [address] Glucose, ur ql Negative Negative LUIS MIGUEL Comment:Testing performed by : [address] [address] Ketones, ur Negative Negative LUIS MIGUEL RAMEY Comment:Testing performed by : [address] [address] Bilirubin, ur Negative Negative LUIS MIGUEL RAMEY Comment:Testing performed by : [address] [address] Blood, ur Negative Negative LUIS MIGUEL Comment:Testing performed by : [address] [address] Urobilinogen, ur <2.0 <2.0 mg/dL [facility] MIG[facility]EL RAMEY Comment:Testing performed by : [address] [address] Nitrite, ur Negative Negative [facility] MIGUEL RAMEY Comment:Testing performed by : [address], [place]., [address] Leukocyte esterase, ur 1+(A) Negative LUIS MIGUEL RAMEY Comment:Testing performed by : [address] [address] UA reflex comment Reflex to microscopic UA will be performed. LUIS MIGUEL RAMEY Comment:Testing performed by : [address] [address] Urine, bladder 10/05/2024 11 :58 PM PUBLIC INFORMATION OFFICER 10/06/2024 12:14 AM PUBLIC INFORMATION OFFICER Krishna Parham DO LAB MICROBIOLOGY - GENERAL ORDERABLES Final Result [facility] Department [place] [address] * (ABNORMAL) CBC with auto differential (10/05/2024 11:58 PM PUBLIC INFORMATION OFFICER) WBC 17.7(H) 3.8 - 9.9 K/cumm Comment:Testing performed by : [address] [address] Hgb 13.1 11.9 - 15.5 g/dL LUIS MIGUEL RAMEY Comment:Testing performed by : [address] [address] Hct 40.8 35.6 - 45.5 % LU[facility] MIGUEL RAMEY Comment:Testing performed by : [address] [address] Plt 325 150 - 400 K/cumm LUIS MIGUEL RAMEY Comment:Testing performed by : [address] [address] MPV 9.4 9.1 - 12.3 fL [facility] MIG[facility]EL RAMEY Comment:Testing performed by : [address] [address] RBC 4.54 3.90 - 5.20 M/cumm LUIS MIGUEL RAMEY Comment:Testing performed by : [address] [address] MCV 89.9 81.3 - 96.4 fL LUIS MIGUEL RAMEY Comment:Testing performed by : [address] [address] MCH 28.9 27.1 - 33.3 pg [facility] MIGUEL RAMEY Comment:Testing performed by : [address] [address] MCHC 32.1(L) 32.3 - 35.7 g/dL LUIS MIGUEL RAMEY Comment:Testing performed by : [address], [address] RDW CV 13.9 11.1 - 14.9 % LUIS MIGUEL Comment:Testing performed by : [address], [address] RDW SD 45.4 35.7 - 48.1 fL LUIS MIGUEL Comment:Testing performed by : [address] [address] NRBC abs 0.00 0.00 - 0.01 K/cumm LUIS MIGUEL Comment:Testing performed by : [address] [address] Blood 10/05/2024 11:5 8 PM PUBLIC INFORMATION OFFICER 10/06/2024 12:14 AM PUBLIC INFORMATION OFFICER Krishna Parham DO LAB BLOOD ORDERABLES Final Result [facility] [address] [facility] Department of Laboratories [place], [place] [id number] * (ABNORMAL) Urinalysis, microscopic only (10/05/2024 11:58 PM PUBLIC INFORMATION OFFICER) WBC, ur 0-5 0 - 5 /HPF Comment:Testing performed by : [address], [address] RBC, ur 6-10(A) 0 - 2 /HPF LUIS MIGUEL Comment:Testing performed by : [address] [address] Epithelial cells, squamous, ur 6-10(A) 0 - 5 /HPF LUIS MIGUEL Comment:Testing performed by : [address] [address] Mucous, ur Present(A) LUIS MIGUEL RAMEY Comment:Testing performed by : [address], [place]., [address] Culture Reflex Comment Reflex conditions for urine culture (WBC >10) not met. LUIS MIGUEL Comment:Testing performed by : [address], [place]., [address] Urine, bladder 10/05/2024 11 :58 PM PUBLIC INFORMATION OFFICER 10/06/2024 12:14 AM PUBLIC INFORMATION OFFICER us Krishna Parham DO LAB URINE ORDERABLES Final Result [facility] Department [place] [address] * Comprehensive metabolic panel (10/05/2024 11:58 PM PUBLIC INFORMATION OFFICER) Sodium 141 135 - 145 mmol/L Comment:Testing performed by : [address] [address] Potassium, pl 4.1 3.3 - 4.9 mmol/L LUIS MIGUEL Comment:Testing performed by : [address] [address] Chloride 102 97 - 110 mmol/L [facility] MIGUEL Comment:Testing performed by : [address] [address] CO2 26 22 - 32 mmol/L LUIS MIGUEL Comment:Testing performed by : [address] [address] Anion gap 13 2 - 15 mmol/L LUIS MIGUEL Comment:Testing performed by : [address] [address] BUN 21 6 - 25 mg/dL LUIS MIGUEL Comment:Testing performed by : [address] [address] Creatinine 0.80 0.60 - 1.10 mg/dL [facility] MIGUEL Comment:Testing performed by : [address] [address] Glucose 180 70 - 199 mg/dL LUIS [...] was last revised 2022. Testing performed by: [address] [address] Calcium 9.8 8.5 - 10.3 mg/dL LUIS MIGUEL Comment:Testing performed by : [address] [address] Bilirubin, total 0.3 0.1 - 1.2 mg/dL LUIS MIGUEL Comment:Testing performed by : [address] [address] Protein, pl 7.2 6.5 - 8.5 g/dL LU[facility] MIGUEL Comment:Testing performed by : [address] [address] Albumin 4.2 3.5 - 5.0 g/dL LUIS MIGUEL Comment:Testing performed by : [address] [address] Alk phos 115 40 - 130 Units/L [facility]IS MIGUEL Comment:Testing performed by : [address] [address] ALT 23 7 - 45 Units/L LUIS MIGUEL Comment:Testing performed by : [address] [address] AST 18 10 - 45 Units/L [facility] MIGUEL Comment:Testing performed by : [address] [address] Blood 10/05/2024 11:5 8 PM PUBLIC INFORMATION OFFICER 10/06/2024 12:14 AM PUBLIC INFORMATION OFFICER Krishna Parham DO LAB BLOOD ORDERABLES Final Result [facility] [place] [address] [facility] Department [place] [address] * Albumin Creatinine Ratio, Urine (08/13/2024 10:45 [...] AM CDT FASTING:YES FASTING: YES Magdalena Roa CORE CUTTER LAB URINE ORDERABLES Final Re sult [facility] [address] [place] [address] * (ABNORMAL) Hemoglobin A1c (08/13/2024 10:45 AM [...] AM CDT 08/13/2024 10:46 AM CDT Narrative [email or web address] - 08/14/2024 3:30 AM CDT FASTING:YES FASTING: YES Magdalena Roa CORE CUTTER LAB BLOOD ORDERABLES [facility] [address] [place] [address] * (ABNORMAL) Lipid panel (08/13/2024 10:45 AM CDT) Cholesterol 188 <200 mg/dL [place] [facility] Liu HDL 53 > OR = 50 mg/dL [place] [facility] Triglycerides 125 <150 mg/dL [place] [facility] LDL 111(H) mg/dL (calc) [place] [facility] Comment: Reference range: <100 Desirable range <100 mg/dL for primary prevention; <70 mg/dL for patients with CHD or diabetic patients with > or = 2 CHD risk factors. LDL-C is now calculated using the Henri-Haque calculation, which is a validated novel method providing better accuracy than the Friedewald equation in the estimation of LDL-C. Henri MAI et al. ODESSA. 2013;310(19): 5639-1994 (http://education.[facility] [facility].[employer]/faq/YNC506) Chol/HDL ratio 3.5 <5.0 (calc) [place] [facility] Non-HDL, (LDL+VLDL) 135(H) <130 mg/dL (calc) [place] [facility] Liu Comment: For patients with diabetes plus 1 major ASCVD risk factor, treating to a non-HDL-C goal of <100 mg/dL (LDL-C of <70 mg/dL) is considered a therapeutic option. Blood 08/13/2024 10:4 5 AM CDT 08/13/2024 10:46 AM CDT Narrative [facility] - 08/14/2024 3:30 AM CDT FASTING:YES FASTING: YES Magdalena Roa CORE CUTTER LAB BLOOD ORDERABLES Final [facility] [address] [place] [address] * Hepatitis C antibody (01/29/2023 11:12 AM [...] - 01/30/2023 9:36 AM CDT Performed at: [address] [place] [id number] Truck Switcher: Chace Salvador PhD, Phone: [phone] Magdalena Roa CORE CUTTER LAB MICROBIOLOGY - GENERAL OR DERABLES Final Result Performing Organization Address City/[facility]/ZIP Co de Phone Number [facility] - 01 * Diagnostic Mammogram Bilateral [...] Most Recently Relevant to Health Maintenance Insurance [facility] CHOICE PLUS [facility] CHOICE PLUS Advance Directives For more information, please contact: [phone] * Full Code (Latest Code Status on File) Date Activated Date Inactivated Comments 02/14/2024 5:47 PM 02/15/2024 5:57 PM Care Teams Internal Audit Manager Relationship Specialty Start Date End Date Magdalena Roa NP [facility] [address] PCP - General Internal Medicine 02/04/23
--- OUTSIDE RECORDS SUMMARY | 2024-12-26 15:53 | XMS_ITS | Referral Summary ---
Author Organization [facility] [address] [facility] Address [address] [place] [address] Care Team Providers Care Kit Assembler Name Role Phone Magdalena Roa ELEMENTARY LIBRARIAN Primary Care Provider [phone] Encounters Date Type Department Care Team Description 12/26/2024 Telephone [facility] Family Medicine [address] [facility] [address] [place] [phone] Magdalena Roa NP 12/25/2024 Telephone [facility] Family Medicine [address] [facility] [address] [place] [phone] Magdalena Roa NP 12/24/2024 Results Follow-Up [facility] Neurology [address] [phone] Michoacano Galindo MD 12/22/2024 2:29 PM RECORDS AND TAPE RECORDINGS ENGINEER - 12/22/2024 11:59 PM RECORDS AND TAPE RECORDINGS ENGINEER Hospital Encounter [facility] MRI [address] [place] [address] Memory changes Discharge Disposition: Discharge to home or self care 12/11/2024 9:30 AM RECORDS AND TAPE RECORDINGS ENGINEER Office Visit [facility] Medical [facility] Pulmonary [address] [place] [phone] Eulogio Yost MD Poor sleep; Snoring 12/03/2024 11:00 AM RECORDS AND TAPE RECORDINGS ENGINEER Office Visit [facility] Cardiology [address] [place] [address] 8th [place] [address] [place] [address] Nima Jacques NP Chest pain, unspecified type (Primary Dx); Hypertension associated with diabetes (HCC); Mixed hyperlipidemia; Echocardiogram abnormal 11/29/2024 3:00 PM RECORDS AND TAPE RECORDINGS ENGINEER Clinical Support [facility] Medicine [address] [facility] [address] [place] [address] Dysuria (Primary Dx) 11/19/2024 Telephone [facility] Neurology [address] [place] [phone] Michoacano Galindo MD Test Results (RESULTS ) 11/16/2024 10:45 AM RECORDS AND TAPE RECORDINGS ENGINEER Lab [facility] Medical Office Bld[address] [place] [address] Memory changes 11/16/2024 10:00 AM RECORDS AND TAPE RECORDINGS ENGINEER Office Visit [facility] Neurology [address] [place] [phone] Michoacano Galindo MD Poor sleep (Primary Dx); Memory changes; Snoring 11/01/2024 Telephone [facility] Medicine [address] [place] [address] [place] [phone] Magdalena Roa NP Med Refill 10/15/2024 1:00 PM RECORDS AND TAPE RECORDINGS ENGINEER - 10/15/2024 1:30 PM RECORDS AND TAPE RECORDINGS ENGINEER Surgery [facility] GI Lab [address] [place] [address] Deshaun West MD COLON BIOPSY 10/15/2024 12:52 PM RECORDS AND TAPE RECORDINGS ENGINEER Anesthesia Event [facility] GI Lab [address] [place] [address] Cheri Cardenas MD Cannon, James J., MD 10/15/2024 11:59 AM RECORDS AND TAPE RECORDINGS ENGINEER - 10/15/2024 2:27 PM RECORDS AND TAPE RECORDINGS ENGINEER Hospital Encounter [facility] GI Lab [address] [place] [address] Deshaun West MD Screening for colon cancer Discharge Disposition: Discharge to home or self care 10/10/2024 Orders Only [facility] Gastroenterology at [place] [address] [facility] [address] [place] [address] Deshaun West MD Screening for colon cancer (Primary Dx) 10/09/2024 11:30 AM RECORDS AND TAPE RECORDINGS ENGINEER Office Visit [facility] Medical Group Internal Medicine at [place] [address] [place] [address] Magdalena Roa NP Cough with exposure to severe acute respiratory syndrome coronavirus 2 (SARS-CoV-2) (Primary Dx); BMI 29.0-29.9,adult; Dysuria; Anxiety; Memory changes; Abnormal CBC 10/06/2024 12:54 AM RECORDS AND TAPE RECORDINGS ENGINEER - 10/06/2024 2:30 AM RECORDS AND TAPE RECORDINGS ENGINEER Emergency [facility] Emergency Department [address] [place] [address] Krishna Parham DO Microscopic hematuria (Primary Dx); Contusion of left knee, initial encounter; Traumatic ecchymosis Discharge Disposition: Discharge to home or self care 10/05/2024 Nurse Triage [facility] Medical [facility] Internal Medicine at [place] [address] [place] [address] Magdalena Roa NP from Last 3 Months [...] 09/03/2024 Assessment & Plan (12/03/2024 12:01 PM RECORDS AND TAPE RECORDINGS ENGINEER): Echocardiogram noted grade 2 LV diastolic dysfunction. Per last note by Dr. Hercules this was reviewed and appreciated to be more indeterminate. Will continue to work on risk factor reduction with weight loss and regular exercise. Assessment & Plan (09/03/2024 11:48 AM RECORDS AND TAPE RECORDINGS ENGINEER): Echocardiogram noted grade 2 LV diastolic dysfunction. [...] 04/19/2021 Assessment & Plan (12/03/2024 12:02 PM RECORDS AND TAPE RECORDINGS ENGINEER): Stress induced chest pain with a negative [...] review. Assessment & Plan (09/03/2024 11:50 AM RECORDS AND TAPE RECORDINGS ENGINEER): Stress induced chest pain with a negative [...] 10/27/2020 Assessment & Plan (10/09/2024 11:42 AM RECORDS AND TAPE RECORDINGS ENGINEER): Discussed the patient's BMI. The BMI is above average. BMI management plan is completed. BMI Follow-up includes: nutrition counseling, exercise counseling and education provided. Snoring 10/27/2020 Assessment & Plan (12/11/2024 9:57 AM RECORDS AND TAPE RECORDINGS ENGINEER): The patient presents with snoring and daytime fatigue. Per her request, I have ordered a home sleep test and she will follow up here in 4 months. Assessment & Plan (10/27/2020 12:47 PM RECORDS AND TAPE RECORDINGS ENGINEER): Will refer for sleep study Sleep disturbance 10/27/2020 Assessment & Plan (10/27/2020 12:47 PM RECORDS AND TAPE RECORDINGS ENGINEER): Will refer for sleep study Breast cancer screening by mammogram 09/10/2020 Assessment & Plan (09/10/2020 11:38 AM RECORDS AND TAPE RECORDINGS ENGINEER): Retrieve records from previous pcp. Hypothyroidism 09/10/2020 Assessment & Plan (04/29/2022 7:17 AM CDT): Continue medication same dosing at this time, refill as needed. Assessment & Plan (01/21/2022 12:40 PM CDT): Labs entered, continue medications the same time Assessment & Plan (05/08/2021 1:15 PM CDT): Fasting labs entered, will notify patient of results as available Assessment & Plan (10/27/2020 12:46 PM RECORDS AND TAPE RECORDINGS ENGINEER): Will repeat labs, continue medication same at this time Assessment & Plan (09/10/2020 11:39 AM RECORDS AND TAPE RECORDINGS ENGINEER): Fasting labs entered, will notify patient of results as available Continue medication same at this time. Vitamin D deficiency 09/10/2020 Assessment & Plan (10/27/2020 12:46 PM RECORDS AND TAPE RECORDINGS ENGINEER): Will repeat labs, continue medication same at this time Assessment & Plan (09/10/2020 11:39 AM RECORDS AND TAPE RECORDINGS ENGINEER): Fasting labs entered, will notify patient of results as available Continue medication same at this time. Hypertension associated with diabetes 09/10/2020 Overview (08/15/2023): Continue blood pressure medicine daily as directed Assessment & Plan (12/03/2024 12:00 PM RECORDS AND TAPE RECORDINGS ENGINEER): Above goal at home. Increase Amlodipine to 10 mg daily. She will keep a blood pressure diary and we will touch base in 1-2 weeks to review. Assessment & Plan (09/03/2024 11:49 AM RECORDS AND TAPE RECORDINGS ENGINEER): She will stop hydrochlorothiazide and we with [...] available Assessment & Plan (09/10/2020 11:39 AM RECORDS AND TAPE RECORDINGS ENGINEER): Fasting labs entered, will notify patient of results as available Continue medication same at this time. Hyperlipidemia 09/10/2020 Assessment & Plan (12/03/2024 12:00 PM RECORDS AND TAPE RECORDINGS ENGINEER): Continue atorvastatin 80 mg daily and zetia 10 mg daily. Planning to repeat with PCP. Assessment & Plan (09/03/2024 11:47 AM RECORDS AND TAPE RECORDINGS ENGINEER): Continue atorvastatin 80 mg daily. Assessment & [...] session Assessment & Plan (09/10/2020 11:39 AM RECORDS AND TAPE RECORDINGS ENGINEER): Fasting labs entered, will notify patient of results as available Continue medication same at this time. Memory changes 09/10/2020 Assessment & Plan (10/03/2020 12:35 PM RECORDS AND TAPE RECORDINGS ENGINEER): We reviewed recent normal mri of head. Advised referral to neurology for further evaluation and treatment. Assessment & Plan (09/10/2020 11:38 AM RECORDS AND TAPE RECORDINGS ENGINEER): Will taper/discontinue wellbutrin. Will order mri of head to evaluate further. Chronic intractable headache 09/10/2020 Assessment & Plan (10/27/2020 12:46 PM RECORDS AND TAPE RECORDINGS ENGINEER): Wants to hold/not schedule neuro referral at this time. Will continue medication the same. Will refer for sleep study. Assessment & Plan (10/03/2020 12:36 PM RECORDS AND TAPE RECORDINGS ENGINEER): We reviewed recent normal mri of head. Advised referral to neurology for further evaluation and treatment. We discussed adding inderal or other daily medication for prevention, patient wants to start with changing the lexapro first. Assessment & Plan (09/10/2020 11:39 AM RECORDS AND TAPE RECORDINGS ENGINEER): Will evaluate further with mri of head Anxiety 09/10/2020 Assessment & Plan (04/29/2022 7:16 AM CDT): We will increase her cymbalta to 90mg daily. She was advised to notify the office over the next 4w - if ineffective will try adding buspar tid. Assessment & Plan (12/10/2021 11:48 AM RECORDS AND TAPE RECORDINGS ENGINEER): Continue with cymbalta 60mg daily Add bid/prn xanax - advised of potential addictiveness, she expressed understanding. We discussed changing cymbalta or adding buspar tid over the coming month if needing xanax routinely. Assessment & Plan (10/15/2021 3:24 PM RECORDS AND TAPE RECORDINGS ENGINEER): Increase cymbalta from 60mg every day to 90mg every day Assessment & Plan (09/17/2021 1:37 PM RECORDS AND TAPE RECORDINGS ENGINEER): Stable, continue meds same at this time Assessment & Plan (05/08/2021 1:17 PM CDT): Will increase cymbalta. Assessment & Plan (10/27/2020 12:46 PM RECORDS AND TAPE RECORDINGS ENGINEER): Continue medication same Assessment & Plan (10/03/2020 12:37 PM RECORDS AND TAPE RECORDINGS ENGINEER): Taper lexapro every other day x 6 days, then discontinue. Will start cymbalta when taper is finished. We discussed gi workup pending resolution of loose stools. Will also retrieve consult notes from previous pcp to determine date and results of last cscope. Assessment & Plan (09/10/2020 11:40 AM RECORDS AND TAPE RECORDINGS ENGINEER): Taper wellbutrin 1 tab every other day [...] (3.9 % thirty day risk of , [place] or cardiac arrest). No further cardiac testing [...] nutrition counseling, exercise counseling and education provided. [place] eye disease of left eye 06/14/2022 08/09/2022 [...] 22 Assessment & Plan (10/15/2021 3:24 PM RECORDS AND TAPE RECORDINGS ENGINEER): Increase metformin to 500mg bid Encouraged heart [...] session. Assessment & Plan (12/10/2021 11:49 AM RECORDS AND TAPE RECORDINGS ENGINEER): Discontinue metformin Will initiate topamax 25mg bid for appetite suppression. She was advised that this is an off label utilization and due to concurrent cymbalta she has a risk for serotonin syndrome. She expressed understanding and desire to proceed. She will f/u in 4w for weight management, sooner as needed. Assessment & Plan (10/15/2021 3:24 PM RECORDS AND TAPE RECORDINGS ENGINEER): Increase metformin to 500mg bid Encouraged heart healthy diet, exercise 4x/week for 30min each session Assessment & Plan (09/17/2021 1:38 PM RECORDS AND TAPE RECORDINGS ENGINEER): Obesity is unchanged. Discussed the patient's BMI. 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 Not on file Not on file Not on file Last Filed Vital Signs Vital Sign Reading Time Taken Comments Blood Pressure 126/68 12/11/2024 9:25 AM RECORDS AND TAPE RECORDINGS ENGINEER Pulse 70 12/11/2024 9:25 AM RECORDS AND TAPE RECORDINGS ENGINEER Temperature 36.9 C (98.4 F) 12/11/2024 9:25 AM RECORDS AND TAPE RECORDINGS ENGINEER Respiratory Rate 18 12/11/2024 9:25 AM RECORDS AND TAPE RECORDINGS ENGINEER Oxygen Saturation 94% 12/11/2024 9:25 AM RECORDS AND TAPE RECORDINGS ENGINEER Inhaled Oxygen Concentration - - Weight 70.3 kg (155 lb) 12/03/2024 10:47 AM RECORDS AND TAPE RECORDINGS ENGINEER Height 154.9 cm (5' 1 ) 12/11/2024 9:25 AM RECORDS AND TAPE RECORDINGS ENGINEER Body Mass Index 29.29 12/03/2024 10:47 AM RECORDS AND TAPE RECORDINGS ENGINEER Plan of Treatment Not on file Medical Devices Implanted Type Area Personal Care Aid Device Identifier Shelf Expiration Date Model / Serial / Lot [employer] Oscar Upsylon 35.4cm Elongation Profile Lightweight Large Pore Low [id number] - [id number] Implanted:Qty: 1 on 02/14/2024 by Lam Munoz MD at [facility] Mesh N/A: Pelvis [employer] Oscar 07/30/2026 [id number] / / [id number] [employer] Sling Urinary Incontinence Female Stress Short Desara Blue [place]-Ds01bs - [id number] Implanted:Qty: 1 on 02/14/2024 by Lam Munoz MD at [facility] N/A: Pelvis [employer] 07/21/2026 [id number] / / [id number] Procedures Procedure Name Priority Date/Time Associated Diagnosis Comments MRI BRAIN WO CONTRAST Schedule Routine, Read Routine (OP Routine) 12/22/2024 3:09 PM RECORDS AND TAPE RECORDINGS ENGINEER Memory changes POCT URINALYSIS DIPSTICK Routine 11/29/2024 3:33 PM RECORDS AND TAPE RECORDINGS ENGINEER Dysuria URINE CULTURE Routine 11/29/2024 3:21 PM RECORDS AND TAPE RECORDINGS ENGINEER Dysuria VITAMIN B12 Routine 11/16/2024 11:03 AM RECORDS AND TAPE RECORDINGS ENGINEER Memory changes POCT GLUCOSE DEVICE Routine 10/15/2024 1 :34 PM RECORDS AND TAPE RECORDINGS ENGINEER SURGICAL PATHOLOGY Routine 10/15/2024 1: 02 PM RECORDS AND TAPE RECORDINGS ENGINEER Screening for colon cancer COLONOSCOPY 10/15/2024 12:54 PM RECORDS AND TAPE RECORDINGS ENGINEER COLON BIOPSY 10/15/2024 12:54 PM RECORDS AND TAPE RECORDINGS ENGINEER Screening for colon cancer POCT GLUCOSE DEVICE Routine 10/15/2024 12:37 PM RECORDS AND TAPE RECORDINGS ENGINEER CBC WITH AUTO DIFFERENTIAL Routine 10/09/2024 1:16 PM RECORDS AND TAPE RECORDINGS ENGINEER Abnormal CBC POC INFLUENZA A/B, COVID-19 ANTIGEN Routine 10/09/2024 11:59 AM RECORDS AND TAPE RECORDINGS ENGINEER Cough with exposure to severe acute respiratory syndrome coronavirus 2 (SARS-CoV-2) POCT URINALYSIS DIPSTICK Routine 10/09/2024 11:57 AM RECORDS AND TAPE RECORDINGS ENGINEER Dysuria POCT GLUCOSE DEVICE Routine 10/06/2024 1 :15 AM RECORDS AND TAPE RECORDINGS ENGINEER CT RECON LUMBAR SPINE WO CONTRAST ED 10/06/2024 1:08 AM RECORDS AND TAPE RECORDINGS ENGINEER CT CHEST ABDOMEN PELVIS W CONTRAST ED 10/06/2024 1:08 AM RECORDS AND TAPE RECORDINGS ENGINEER XR KNEE LEFT 3 VIEWS ED 10/06/2024 12:26 AM RECORDS AND TAPE RECORDINGS ENGINEER EGFR STAT 10/05/2024 11:58 PM RECORDS AND TAPE RECORDINGS ENGINEER URINALYSIS, MICROSCOPIC ONLY STAT 10/05/2024 11:58 PM RECORDS AND TAPE RECORDINGS ENGINEER DIFFERENTIAL AUTO STAT 10/05/2024 11:58 PM RECORDS AND TAPE RECORDINGS ENGINEER CBC WITH AUTO DIFFERENTIAL STAT 10/05/2024 11:58 PM RECORDS AND TAPE RECORDINGS ENGINEER COMPREHENSIVE METABOLIC PANEL STAT 10/05/2024 11:58 PM RECORDS AND TAPE RECORDINGS ENGINEER URINALYSIS AND REFLEX TO MICROSCOPIC AND CULTURE STAT 10/05/2024 11:58 PM RECORDS AND TAPE RECORDINGS ENGINEER HEMOGLOBIN A1C Routine 08/13/2024 10:45 AM CDT [...] MRI Brain WO Contrast (12/22/2024 3:09 PM RECORDS AND TAPE RECORDINGS ENGINEER) Anatomical Region Laterality Modality Head and Neck N/A Magnetic Resonan ce 12/24/2024 10:1 2 AM RECORDS AND TAPE RECORDINGS ENGINEER Narrative 12/24/2024 10:18 AM RECORDS AND TAPE RECORDINGS ENGINEER EXAM DESCRIPTION: MRI BRAIN WO CONTRAST REASON [...] Dago Medrano M.D., MM T: Report ID: [id number] Reading Location: [place] [address] Procedure Note Dago Medrano MD - 12/24/2024 EXAM DESCRIPTION: MRI BRAIN WO CONTRAST REASON FOR STUDY: Memory Loss Memory loss f/6 months. TECHNIQUE: Multiplanar imaging includes non-contrasted T1, T2, FLAIR, and diffusion with ADC map sequences. Additional sequence(s) sensitive [place] products. Images stored on PACS. COMPARISON: No [...] Dago Medrano M.D., MM T: Report ID: [id number] Reading Location: [place] [address] Michoacano Galindo MD [facility] MRI PROCEDURES Final Resul t * (ABNORMAL) POCT urinalysis dipstick (11/29/2024 3:33 PM RECORDS AND TAPE RECORDINGS ENGINEER) Color, Urine, POC Natalie Clarity, ur, POC Cloudy(A) Clear Glucose, ur, POC Negative Negative MG/DL Bilirubin, ur, POC Negative Negative, Small, Moderate, Large Ketones, ur, POC Negative Negative Specific [place], POC 1.030 1.003 - 1.030 Blood, ur, POC Large(A) Negative pH, ur, POC 5.5 5.0 - 8.0 Protein, ur, POC 100.(A) Negative Urobilinogen, urine, POC 0.2 0.2 - 1.0 mg/dL Nitrite, ur, POC Negative Negative Leukocytes, ur, POC Small(A) Negative Lot Number cloudy Urine 11/29/2024 3:33 PM RECORDS AND TAPE RECORDINGS ENGINEER Magdalena Roa ELEMENTARY LIBRARIAN POINT OF CARE TEST ORDERABLES Final Result * Urine culture Urine, clean voided (11/29/2024 3:21 PM RECORDS AND TAPE RECORDINGS ENGINEER) [facility] Urine culture [facility] Comment: CULTURE, URINE, ROUTINE Micro Number: [id number] Test Status: Final Specimen Source: Not given Specimen Quality: Adequate Result: No Growth Urine, clean voided 11/29/2024 3:21 PM RECORDS AND TAPE RECORDINGS ENGINEER 11/30/2024 3:23 AM RECORDS AND TAPE RECORDINGS ENGINEER Magdalena Roa NP LAB MICROBIOLOGY - GENERAL OR DERABLES Final Result [facility] [address] [place] [address] * Vitamin B12 (11/16/2024 11:03 AM RECORDS AND TAPE RECORDINGS ENGINEER) [facility] Vitamin B12 311 230 - 1,250 pg/mL Blood 11/16/2024 11:0 3 AM RECORDS AND TAPE RECORDINGS ENGINEER 11/16/2024 12:34 PM RECORDS AND TAPE RECORDINGS ENGINEER Michoacano Galindo MD LAB BLOOD ORDERABLES Final Res ult [facility] [address] [facility] Department [place] [address] * POCT glucose (10/15/2024 1:34 PM RECORDS AND TAPE RECORDINGS ENGINEER) Pathologist [facility] Glucose, POC 93 70 - 199 mg/dL Glucose comment 1 Use This Result [facility] Glucose comment 2 RN/MD Notified [facility] Blood 10/15/2024 1:34 PM RECORDS AND TAPE RECORDINGS ENGINEER 10/15/2024 1:34 PM RECORDS AND TAPE RECORDINGS ENGINEER Deshaun West MD LAB POCT ORDERABLES - DEVICE Fin al Result [facility] Department of Laboratories [place], [place] [id number] * Surgical pathology (10/15/2024 1:02 PM RECORDS AND TAPE RECORDINGS ENGINEER) Tissue (Colon, Biopsy) 10/15/2024 1:02 PM RECORDS AND TAPE RECORDINGS ENGINEER Tissue (Colon, Biopsy) 10/15/2024 1:12 PM RECORDS AND TAPE RECORDINGS ENGINEER Narrative PATHOLOGY [facility] - 10/16/2024 5:23 PM RECORDS AND TAPE RECORDINGS ENGINEER [facility] Department of Pathology [facility] [place], [place] [address] Note to Patients: This report may contain [...] : 1965 (Age: 59) Gender: F Address: [address] [place] [address] [facility] #: [id number] Service: Gastro Location: Patient Type: [facility] OUTPATIENT Taken: 10/15/2024 Received: 10/15/2024 Accessioned: 10/15/2024 [...] cm. Entirely submitted. Labeled B1. Jar 0. [facility]/10/15/2024 14:35 HARDIK Chapman, PA [facility] Microscopic slide review and interpretation for this case was performed at [facility], Department of Surgical Pathology, [address] [facility], [place] [id number], [address] # [id number] us Deshaun West MD LAB PATHOLOGY ORDERABLES Final R esult PATHOLOGY [facility] * Colonoscopy (10/15/2024 12:54 PM RECORDS AND TAPE RECORDINGS ENGINEER) Anatomical Region Laterality Modality Other Narrative Procedure Note Deshaun West MD - 10/15/2024 12:54 PM CST [facility] EM[facility]GENCY ROOM GI ENDOSCOPY Patient Name: Cira Lugo Procedure Date: 10/15/2024 12:54PM Date of : 1965 Admit Type: Outpatient Age: 59 Gender: Female Attending MD: Deshaun West M.D. Room: [facility] ENDOSCOPY ROOM 06 Note Status: [...] The scope was passed under direct vision.The [id number] colonoscope was introduced through theanus and advanced [...] On: 10/15/2024 12:54 PM Recognized by the [employer] for promoting quality in endoscopy Deshaun West MD ENDOSCOPY PROCEDURES Final Resul t * POCT glucose (10/15/2024 12:37 PM RECORDS AND TAPE RECORDINGS ENGINEER) Glucose, POC 107 70 - 199 mg/dL Glucose comment 1 Use This Result [facility] Glucose comment 2 RN/MD Notified [facility] Blood 10/15/2024 12:3 7 PM RECORDS AND TAPE RECORDINGS ENGINEER 10/15/2024 12:37 PM RECORDS AND TAPE RECORDINGS ENGINEER Deshaun West MD LAB POCT ORDERABLES - DEVICE Fin al Result [facility] [address] [facility] Department [place] [address] * (ABNORMAL) CBC with auto differential (10/09/2024 1:16 PM RECORDS AND TAPE RECORDINGS ENGINEER) [facility] WBC 11.0(H) 3.8 - 10.8 Thousand/u [...] Diagnostics-S t Noe Blood 10/09/2024 1:16 PM RECORDS AND TAPE RECORDINGS ENGINEER 10/09/2024 1:16 PM RECORDS AND TAPE RECORDINGS ENGINEER Magdalena Roa ELEMENTARY LIBRARIAN LAB BLOOD ORDERABLES Final Re sult [facility] [address] [place] [address] * POC Influenza A/B, COVID-19 antigen (10/09/2024 11:59 AM RECORDS AND TAPE RECORDINGS ENGINEER) [facility] Influenza A Ag, POC Negative Negative [facility] Influenza B Ag, POC Negative Negative [facility] COVID-19 Ag POC Presumptive Negative Presumptive Negative, Invalid [facility] Nasal 10/09/2024 11:5 9 AM RECORDS AND TAPE RECORDINGS ENGINEER us Magdalena Roa ELEMENTARY LIBRARIAN POINT OF CARE TEST ORDERABLES Final Result Performing Organization Address City/[facility] Co de Phone Number [facility] [address] * (ABNORMAL) POCT urinalysis dipstick (10/09/2024 11:57 AM RECORDS AND TAPE RECORDINGS ENGINEER) Pathologist [facility] Glucose, ur, POC Negative Negative MG/DL Bilirubin, ur, POC Negative Negative, Small, Moderate, Large Ketones, ur, POC Negative Negative Specific [place], POC 1.020 1.003 - 1.030 Blood, ur, POC Negative Negative pH, ur, POC 6.0 5.0 - 8.0 Protein, ur, POC Negative Negative Urobilinogen, urine, POC 1.0 0.2 - 1.0 mg/dL Nitrite, ur, POC Negative Negative Leukocytes, ur, POC Small(A) Negative Lot Number [id number] Comment:08/30/2025 Urine 10/09/2024 11:5 7 AM RECORDS AND TAPE RECORDINGS ENGINEER us Magdalena Roa ELEMENTARY LIBRARIAN POINT OF CARE TEST ORDERABLES Final Result * POCT glucose (10/06/2024 1:15 AM RECORDS AND TAPE RECORDINGS ENGINEER) Pathologist [facility] Glucose, POC 142 70 - 199 mg/dL Comment:Testing performed by : [facility], [address] [place] [address]., [id number] Glucose comment 1 Use This Result [facility] MIG[facility]EL [facility] Comment:Testing performed by : [address] [address] Glucose comment 2 RN/MD Notified [facility]IG[facility] RAME[facility] Comment:Testing performed by : [address] [address] Blood 10/06/2024 1:15 AM RECORDS AND TAPE RECORDINGS ENGINEER 10/06/2024 1:15 AM RECORDS AND TAPE RECORDINGS ENGINEER us [employer] Unknown LAB POCT ORDERABLES - DEVICE F inal Result LUIS MIGUEL RAMEY [address] [facility] Department [place] [address] * CT Recon Lumbar Spine WO Contrast (10/06/2024 1:08 AM RECORDS AND TAPE RECORDINGS ENGINEER) Anatomical Region Laterality Modality Spine N/A Computed Tomogra phy 10/06/2024 1:30 AM RECORDS AND TAPE RECORDINGS ENGINEER Narrative 10/06/2024 1:31 AM RECORDS AND TAPE RECORDINGS ENGINEER EXAM DESCRIPTION: CT RECON LUMBAR SPINE WO [...] signed by Vasquez SEPULVEDA: COCO Report ID: [id number] Reading Location: [id number] Procedure Note Vasquez Travis MD - 10/06/2024 [...] signed by Vasquez SEPULVEDA: COCO Report ID: [id number] Reading Location: [id number] Daphne Belcher NP IM CT PROCEDURES Final Result * CT Chest Abdomen Pelvis W Contrast (10/06/2024 1:08 AM RECORDS AND TAPE RECORDINGS ENGINEER) Anatomical Region Laterality Modality Body N/A Computed Tomogra phy 10/06/2024 1:23 AM RECORDS AND TAPE RECORDINGS ENGINEER Narrative 10/06/2024 1:30 AM RECORDS AND TAPE RECORDINGS ENGINEER EXAM DESCRIPTION: CT CHEST ABDOMEN PELVIS W [...] Vasquez Travis M.D. KH: COCO Report ID: [id number] Reading Location: [place] [address] Procedure Note Vasquez Travis MD - 10/06/2024 [...] signed by Vasquez SEPULVEDA: COCO Report ID: [id number] Reading Location: [id number] Donaldmed CrabtreeYejustyna VANN IMG CT PROCEDURES Final Result * XR Knee Left 3 Views (10/06/2024 12:26 AM RECORDS AND TAPE RECORDINGS ENGINEER) Anatomical Region Laterality Modality Lower Extremities, Knee Left Computed Radiography 10/06/2024 12:2 9 AM RECORDS AND TAPE RECORDINGS ENGINEER Narrative 10/06/2024 12:30 AM RECORDS AND TAPE RECORDINGS ENGINEER EXAM DESCRIPTION: XR KNEE LEFT 3 VIEWS [...] signed by Vasquez SEPULVEDA: COCO Report ID: [id number] Reading Location: [id number] Procedure Note Vasquez Travis MD - 10/06/2024 [...] Vasquez Travis M.D. KH: COCO Report ID: [id number] Reading Location: [place] [address] Krishna Parham DO IMG XR PROCEDURES Final Res ult * eGFR (10/05/2024 11:58 PM RECORDS AND TAPE RECORDINGS ENGINEER) eGFR 84 >=60 mL/min/1. 73 m2 Comment: [...] was last reviewed 2021. Testing performed by: [address] [address] Blood 10/05/2024 11:5 8 PM RECORDS AND TAPE RECORDINGS ENGINEER 10/06/2024 12:14 AM RECORDS AND TAPE RECORDINGS ENGINEER us Krishna Parham DO LAB BLOOD ORDERABLES Final Result [facility] [address] [facility] Department [place] [address] * (ABNORMAL) Differential, auto (10/05/2024 11:58 PM RECORDS AND TAPE RECORDINGS ENGINEER) Neutrophil abs 15.6(H) 1.5 - 6.5 K/cumm Comment:Testing performed by : [address] [address] Imm gran abs 0.3(H) 0.0 - 0.1 K/cumm LUIS MIGUEL Comment:Testing performed by : [address] [address] Lymphocyte abs 1.1 0.8 - 3.3 K/cumm LUIS MIGUEL Comment:Testing performed by : [address] [address] Monocyte abs 0.7 0.2 - 0.8 K/cumm LUIS MIGUEL Comment:Testing performed by : [address] [address] Eosinophil abs 0.0 0.0 - 0.5 K/cumm LUIS MIGUEL Comment:Testing performed by : [address] [address] Basophil abs 0.0 0.0 - 0.1 K/cumm LUIS MIGUEL Comment:Testing performed by : [address] [address] Neutrophil pct 88.5 % LUIS MIGUEL Comment: Interpretive Data Percent cell count reference ranges are not reported, since discordance with absolute values may lead to misinterpretation of CBC data. Current Interpretive Data was last revised on 2018. Testing performed by: [address] [address] Imm gran pct 1.5 % LUIS MIGUEL Comment: Interpretive Data Percent cell count reference ranges are not reported, since discordance with absolute values may lead to misinterpretation of CBC data. Current Interpretive Data was last revised on 2018. Testing performed by: [address] [address] Lymphocyte pct 6.1 % LUIS MIGUEL Comment: Interpretive Data Percent cell count reference ranges are not reported, since discordance with absolute values may lead to misinterpretation of CBC data. Current Interpretive Data was last revised on 2018. Testing performed by: [address] [address] Monocyte pct 3.7 % LUIS MIGUEL Comment: Interpretive Data Percent cell count reference ranges are not reported, since discordance with absolute values may lead to misinterpretation of CBC data. Current Interpretive Data was last revised on 2018. Testing performed by: [address] [address] Eosinophil pct 0.0 % LUIS MIGUEL Comment: Interpretive Data Percent cell count reference ranges are not reported, since discordance with absolute values may lead to misinterpretation of CBC data. Current Interpretive Data was last revised on 2018. Testing performed by: [address] [address] Basophil pct 0.2 % LUIS MIGUEL Comment: Interpretive Data Percent cell count reference ranges are not reported, since discordance with absolute values may lead to misinterpretation of CBC data. Current Interpretive Data was last revised on 2018. Testing performed by: [address] [address] Blood 10/05/2024 11:5 8 PM RECORDS AND TAPE RECORDINGS ENGINEER 10/06/2024 12:14 AM RECORDS AND TAPE RECORDINGS ENGINEER us Krishna Parham DO LAB BLOOD ORDERABLES Final Result LUIS MIGUEL RAMEY [address] [facility] Department [place] [address] * (ABNORMAL) Urinalysis reflex to microscopic and culture Urine, bladder (10/05/2024 11:58 PM RECORDS AND TAPE RECORDINGS ENGINEER) Color, ur Yellow Yellow Comment:Testing performed by : [facility], [address] [place] [address]., [address] Clarity, ur Clear Clear LUIS MIGUEL Comment:Testing performed by : [address], [place]., [address] Specific gravity, ur 1.036(H) 1.003 - 1.030 LUIS MIGUEL Comment:Testing performed by : [address], [place]., [address] pH, urine 5.5 LUIS MIGUEL Comment: Interpretive Data U rine pH is affected by diet, medications, systemic acid-base disturbances, and renal tubular function. pH may affect urinary stone formation. For example, urine pH below 6.0 may help reduce the tendency for calcium phosphate stones and pH greater than 6.0 may reduce the tendency for uric acid stone formation. Source: [facility] [id number] Current Interpretive Data was last revised on 2017 Testing performed by: [address] [address] Protein, ur ql Trace(A) Negative LUIS MIGUEL Comment:Testing performed by : [address] [address] Glucose, ur ql Negative Negative LUIS MIGUEL Comment:Testing performed by : [address] [address] Ketones, ur Negative Negative LUIS MIGUEL Comment:Testing performed by : [address] [address] Bilirubin, ur Negative Negative LUIS MIGUEL Comment:Testing performed by : [address] [address] Blood, ur Negative Negative LUIS MIGUEL Comment:Testing performed by : [address] [address] Urobilinogen, ur <2.0 <2.0 mg/dL LUIS MIGUEL Comment:Testing performed by : [address] [address] Nitrite, ur Negative Negative LUIS MIGUEL Comment:Testing performed by : [address] [address] Leukocyte esterase, ur 1+(A) Negative LUIS MIGUEL Comment:Testing performed by : [address] [address] UA reflex comment Reflex to microscopic UA will be performed. LUIS MIGUEL Comment:Testing performed by : [address] [address] Urine, bladder 10/05/2024 11 :58 PM RECORDS AND TAPE RECORDINGS ENGINEER 10/06/2024 12:14 AM RECORDS AND TAPE RECORDINGS ENGINEER Krishna Parham DO LAB MICROBIOLOGY - GENERAL ORDERABLES Final Result LUIS MIGUEL RAMEY [address] [facility] Department [place] [address] * (ABNORMAL) CBC with auto differential (10/05/2024 11:58 PM RECORDS AND TAPE RECORDINGS ENGINEER) WBC 17.7(H) 3.8 - 9.9 K/cumm Comment:Testing performed by : [address] [address] Hgb 13.1 11.9 - 15.5 g/dL LUIS MIGUEL Comment:Testing performed by : [address] [address] Hct 40.8 35.6 - 45.5 % LUIS MIGUEL Comment:Testing performed by : [address] [address] Plt 325 150 - 400 K/cumm LUIS MIGUEL Comment:Testing performed by : [address] [address] MPV 9.4 9.1 - 12.3 fL LUIS MIGUEL Comment:Testing performed by : [address] [address] RBC 4.54 3.90 - 5.20 M/cumm LUIS MIGUEL Comment:Testing performed by : [address] [address] MCV 89.9 81.3 - 96.4 fL LUIS MIGUEL Comment:Testing performed by : [address] [address] MCH 28.9 27.1 - 33.3 pg LUIS MIGUEL RAMEY Comment:Testing performed by : [address] [place]., [address] MCHC 32.1(L) 32.3 - 35.7 g/dL LUIS MIGUEL RAMEY Comment:Testing performed by : [address] [address] RDW CV 13.9 11.1 - 14.9 % LUIS MIGUEL RAMEY Comment:Testing performed by : [address] [address] RDW SD 45.4 35.7 - 48.1 fL LUIS MIGUEL Comment:Testing performed by : [address] [address] NRBC abs 0.00 0.00 - 0.01 K/cumm LUIS MIGUEL Comment:Testing performed by : [address] [address] Blood 10/05/2024 11:5 8 PM RECORDS AND TAPE RECORDINGS ENGINEER 10/06/2024 12:14 AM RECORDS AND TAPE RECORDINGS ENGINEER Krishna Parham DO LAB BLOOD ORDERABLES Final Result LUIS MIGUEL [address] [facility] Department [place] [address] * (ABNORMAL) Urinalysis, microscopic only (10/05/2024 11:58 PM RECORDS AND TAPE RECORDINGS ENGINEER) WBC, ur 0-5 0 - 5 /HPF Comment:Testing performed by : [address] [address] RBC, ur 6-10(A) 0 - 2 /HPF LUIS MIGUEL Comment:Testing performed by : [address] [address] Epithelial cells, squamous, ur 6-10(A) 0 - 5 /HPF LUIS MIGUEL Comment:Testing performed by : [address] [address] Mucous, ur Present(A) LUIS MIGUEL RAMEY Comment:Testing performed by : [address] [address] Culture Reflex Comment Reflex conditions for urine culture (WBC >10) not met. LUIS MIGUEL RAMEY Comment:Testing performed by : [address] [address] Urine, bladder 10/05/2024 11 :58 PM RECORDS AND TAPE RECORDINGS ENGINEER 10/06/2024 12:14 AM RECORDS AND TAPE RECORDINGS ENGINEER us Krishna Parham DO LAB URINE ORDERABLES Final Result LUIS MIGUEL [address] [facility] Department [place] [address] * Comprehensive metabolic panel (10/05/2024 11:58 PM RECORDS AND TAPE RECORDINGS ENGINEER) Sodium 141 135 - 145 mmol/L Comment:Testing performed by : [address] [address] Potassium, pl 4.1 3.3 - 4.9 mmol/L LUIS MIGUEL Comment:Testing performed by : [address] [address] Chloride 102 97 - 110 mmol/L LUIS MIGUEL Comment:Testing performed by : [address] [address] CO2 26 22 - 32 mmol/L LUIS MIGUEL Comment:Testing performed by : [address] [address] Anion gap 13 2 - 15 mmol/L LUIS MIGUEL Comment:Testing performed by : [address] [address] BUN 21 6 - 25 mg/dL LUIS MIGUEL Comment:Testing performed by : [address] [address] Creatinine 0.80 0.60 - 1.10 mg/dL LUIS MIGUEL Comment:Testing performed by : [address] [address] Glucose 180 70 - 199 mg/dL LUIS [...] was last revised 2022. Testing performed by: [address] [address] Calcium 9.8 8.5 - 10.3 mg/dL LUIS MIGUEL Comment:Testing performed by : [address] [address] Bilirubin, total 0.3 0.1 - 1.2 mg/dL LUIS MIGUEL Comment:Testing performed by : [address] [address] Protein, pl 7.2 6.5 - 8.5 g/dL LUIS MIGUEL Comment:Testing performed by : [address] [address] Albumin 4.2 3.5 - 5.0 g/dL LUIS MIGUEL Comment:Testing performed by : [address] [address] Alk phos 115 40 - 130 Units/L LUIS MIGUEL Comment:Testing performed by : [address] [address] ALT 23 7 - 45 Units/L LUIS MIGUEL Comment:Testing performed by : [address] [address] AST 18 10 - 45 Units/L LUIS MIGUEL Comment:Testing performed by : [address] [address] Blood 10/05/2024 11:5 8 PM RECORDS AND TAPE RECORDINGS ENGINEER 10/06/2024 12:14 AM RECORDS AND TAPE RECORDINGS ENGINEER us Krishna Parham DO LAB BLOOD ORDERABLES Final Result LUIS MIGUEL RAMEY [address] [facility] Department of Laboratories [place], [place] [id number] * Albumin Creatinine Ratio, Urine (08/13/2024 10:45 [...] AM CDT FASTING:YES FASTING: YES Magdalena Roa ELEMENTARY LIBRARIAN LAB URINE ORDERABLES Final Re sult Performing Organization Address [facility] de Phone Number [facility] [address] [place] [address] * (ABNORMAL) Hemoglobin A1c (08/13/2024 10:45 AM [...] CDT FASTING:YES FASTING: YES us Magdalena Roa ELEMENTARY LIBRARIAN LAB BLOOD ORDERABLES Final Re sult [facility] [address] [place] [address] * (ABNORMAL) Lipid panel (08/13/2024 10:45 AM CDT) Pathologist [facility] Cholesterol 188 <200 mg/dL [employer]Mackenzie Liu HDL 53 > OR = 50 mg/dL [employer]Mackenzie Liu Triglycerides 125 <150 mg/dL [employer]Mackenzie Liu LDL 111(H) mg/dL (calc) [employer]Mackenzie Liu Comment: Reference range: <100 Desirable range <100 mg/dL for primary prevention; <70 mg/dL for patients with CHD or diabetic patients with > or = 2 CHD risk factors. LDL-C is now calculated using the Maryan calculation, which is a validated novel method providing better accuracy than the Friedewald equation in the estimation of LDL-C. Henri MAI et al. ODESSA. 2013;310(19): 7851-5747 (http://education.AlleyWatch/faq/PFI930) Chol/HDL ratio 3.5 <5.0 (calc) [employer]Mackenzie Liu Non-HDL, (LDL+VLDL) 135(H) <130 mg/dL (calc) [employer]Mackenzie Liu Comment: For patients with diabetes plus 1 major ASCVD risk factor, treating to a non-HDL-C goal of <100 mg/dL (LDL-C of <70 mg/dL) is considered a therapeutic option. Blood 08/13/2024 10:4 5 AM CDT 08/13/2024 10:46 AM CDT Narrative [facility] - 08/14/2024 3:30 AM CDT FASTING:YES FASTING: YES us Magdalena Roa NP LAB BLOOD ORDERABLES Final Re sult [facility] [address] [place] [address] * Hepatitis C antibody (01/29/2023 11:12 AM CDT) [facility] Hep C Ab Non Reactive Non Reactive [...] 9:36 AM CDT Performed at: 01 - [address] [id number] Entry Level Automotive Technician: Chace Salvador PhD, Phone: [phone] Magdalena Roa NP LAB MICROBIOLOGY - GENERAL [...] Most Recently Relevant to Health Maintenance Insurance [employer] [place] [id number] Advance Directives For more information, please contact: [phone] * Full Code (Latest Code Status on File) Date Activated Date Inactivated Comments 02/14/2024 5:47 PM 02/15/2024 5:57 PM Care Teams Kit Assembler Relationship Specialty Start Date End Date Magdaelna Rao NP [address] [place] [address] PCP - General Internal Medicine 02/04/23
== END 2024-12-26 14:31 | disposition home or self-care (01) ==
LOC: ANHED 13:59
PROVIDERS: Emergency Provider Physician Assistant; PCP Nurse Practitioner Family
DX: R21 Rash and other nonspecific skin eruption (principal); I10 Essential (primary) hypertension; E11.9 Type 2 diabetes mellitus without complications; E03.9 Hypothyroidism, unspecified; E78.5 Hyperlipidemia, unspecified
CPT/HCPCS: 99283

== ENCOUNTER 2025-04-11 17:40 | Emergency (ER) | payer OTHER, SELFPAY ==
--- NOTE | ~2025-04-11 | CT_ITS ---
CT cervical spine wo con Ordering provider: Andrey Loza MD History: . Head injury . Comparison: None. Technique: CT of the cervical spine was performed without contrast. Sagittal and coronal reformatted images were also obtained and reviewed. Automated exposure control and iterative reconstruction tanner hnique were employed. The dose-length product was 214.75 mGy-cm. FINDINGS: VERTEBRAE: Loss of height is seen at the level of C6 and C7 which may be acute or chronic. MRI evalua tion advised. Otherwise, No subluxation or acute fracture. The occipital condyles are intact. Degene rative changes of the spine. DISC SPACES: Narrowing of the distance C4-C5, C5 and C5-C6. Multilevel facet joint disease. Multileve l uncovertebral joint osteoarthritic changes. Narrowing of the left foramina at the level of C3-C4 an d C4-C5. PARASPINOUS SOFT TISSUES: Normal. Emphysematous and fibrotic changes with densities seen in both lung apical areas. IMPRESSION: . Slight loss of height of C6 and C7 which may be acute or chronic. MRI evaluation advised. Otherwise , no definite acute osseous abnormality seen in the cervical spine. Multilevel degenerative disc disease. Reviewed, dictated and finalized at location A. IMPRESSION: . Slight loss of height of C6 and C7 which may be acute or chronic. MRI evaluat ion advised. Otherwise, no definite acute osseous abnormality seen in the cervi antonio spine. Multilevel degenerative disc disease.
--- NOTE | ~2025-04-11 | XR_ITS ---
SINGLE AP VIEW PELVIS Ordering provider: Andrey Loza MD History: . Left hip pain after fall . Comparison: None. FINDINGS: BONES: No acute fracture or dislocation. HIP JOINT SPACES: Normal. SACROILIAC JOINT SPACES/LUMBAR SPINE: The sacroiliac joint spaces are normal. Normal visualized lower lumbar spine. PUBIC SYMPHYSIS: Normal. SOFT TISSUES: Normal. IMPRESSION: No acute osseous abnormality pelvis. Reviewed, dictated and finalized at location A.
--- NOTE | ~2025-04-11 | CT_ITS ---
CT brain wo con Ordering provider: Andrey Loza MD History: 59 years Female with . Head injury . Comparison: None. Technique: CT of the head without contrast. Radiation reduction technique utilized.The dose-length product was 605.33 mGy-cm. FINDINGS: BRAIN PARENCHYMA AND CSF SPACES: No midline shift, mass effect or hemorrhage. The brain parenchyma a nd CSF spaces are otherwise normal. VISUALIZED PARANASAL SINUSES: Well aerated. MASTOIDS: Well aerated. BONES: The bones appear intact. SOFT TISSUES: Visualized nasopharynx is normal. Superficial soft tissues are normal. IMPRESSION: No acute intracranial findings. Reviewed, dictated and finalized at location A.
--- NOTE | ~2025-04-11 | XR_ITS ---
XR elbow LT min 3V Ordering provider: Andrey Loza MD History: . Left elbow pain after fall . Comparison: None. FINDINGS: BONES: No acute fracture or dislocation. JOINT SPACES: Normal. SOFT TISSUES: Normal. No definite joint effusion. IMPRESSION: No acute osseous abnormality left elbow. Reviewed, dictated and finalized at location A.
--- OUTSIDE RECORDS SUMMARY | 2025-04-11 17:43 | XMS_ITS | Clinical Summary ---
Author Organization [facility] [place] 10[address] [facility] Address [address] [place] [address] Care Team Providers Care On Call Name Role Phone Magdalena Roa NP Primary Care Provider [phone] Allergies Active Allergy Reactions Criticality Noted Date Comments Venom-Honey Bee Other (See comments) Low 09/03/2024 Blood poisoning Latex Blisters High 10/15/2024 Naproxen Nausea & Vomiting Low 10/05/2024 Penicillins Swelling Medium 09/10/2020 Medications nitroglycerin (NITROSTAT) 0.[address] 1 tablet (0.4 mg total) under the tongue daily as needed for chest pain 30 tablet [address] (CYMBALTA) 60 mg capsuleIndicatio ns:Anxiety Take 1 capsule (60 mg total) by mouth daily 90 capsule 3 024 Active amLODIPine (NORVASC) 10 mg tablet Take 1 tablet (10 mg total) by mouth daily 90 tablet 3 025 2025 Active losartan (COZAAR) 25 mg tablet Take 1 tablet (25 mg total) by mouth daily 30 tablet 025 2025 Active sertraline (ZOLOFT) 25 mg tabletIndication s:Anxiety Take 1 tablet (25 mg total) by mouth daily 90 tablet 3 025 2025 Active ergocalciferol (VITAMIN D) 50,000 unit capsuleIndicatio ns:Vitamin D deficiency Take 1 capsule (50,000 Units total) by mouth once a week 12 capsule [address] (CYMBALTA) 30 mg capsuleIndicatio ns:Anxiety Take 1 capsule (30 mg total) by mouth daily 90 capsule 1 025 Active ezetimibe (ZETIA) 10 mg tabletIndication s:Type 2 diabetes mellitus with hyperlipidemia (HCC) Take 1 tablet (10 mg total) by mouth daily 90 tablet 1 025 Active atorvastatin (LIPITOR) 80 mg tabletIndication s:Type 2 diabetes mellitus with hyperlipidemia (HCC) Take 0.5 tablets (40 mg total) by mouth daily 90 tablet 1 025 Active levothyroxine (SYNTHROID) 50 mcg tabletIndication s:Acquired hypothyroidism Take 1 tablet (50 mcg total) by mouth daily 90 tablet 3 Active hydroCHLOROthiaz ryley (MICROZIDE) 12.5 mg capsule Take 1 capsule (12.5 mg total) by mouth every morning 90 capsule 3 025 Active nystatin powderIndication s:Rash Apply topically 4 (four) times a day 15 g 2025 Active semaglutide (Ozempic) 1 mg/dose (4 mg/3 mL) pen injector injectionIndicat ions:Type 2 diabetes mellitus with hyperlipidemia (HCC) INJECT 1MG SUBCUTANEOUSLY ONCE A WEEK [address] (CYMBALTA) 30 mg capsuleIndicatio ns:Anxiety Take 1 capsule (30 mg total) by mouth daily 90 capsule 1 024 2024 Discontinued(R eorder) ezetimibe (ZETIA) 10 mg tabletIndication s:Type 2 diabetes mellitus with hyperlipidemia (HCC) Take 1 tablet (10 mg total) by mouth daily 90 tablet 1 2024 Discontinued(R eorder) atorvastatin (LIPITOR) 80 mg tabletIndication s:Type 2 diabetes mellitus with hyperlipidemia (HCC) Take 0.5 tablets (40 mg total) by mouth daily 90 tablet 1 025 2024 Discontinued(R eorder) losartan (COZAAR) 25 mg tablet Take 1 tablet (25 mg total) by mouth daily 90 tablet 3 025 2024 Discontinued(D uplicate order) levothyroxine (SYNTHROID) 50 mcg tabletIndication s:Acquired hypothyroidism TAKE 1 TABLET DAILY 90 tablet 3 025 2024 Discontinued(R eorder) hydroCHLOROthiaz ryley (MICROZIDE) 12.5 mg capsule Take 1 capsule (12.5 mg total) by mouth every morning 90 capsule 3 025 2024 Discontinued(R eorder) ergocalciferol (VITAMIN D) 50,000 unit capsuleIndicatio ns:Vitamin D deficiency Take 1 capsule (50,000 Units total) by mouth once a week 12 capsule 1 025 2024 Discontinued(R eorder) semaglutide (Ozempic) 1 mg/dose (4 mg/3 mL) pen injector injectionIndicat ions:Type 2 diabetes mellitus with hyperlipidemia (HCC) Inject 1 mg under the skin every 7 days 3 mL 025 2024 Discontinued Active Problems Problem Noted Date Diagnosed Date Abnormal CBC 10/10/2024 Overview (10/10/2024): Have lab work completed Physical exam, annual 10/10/2024 Dysuria 10/09/2024 Overview (10/09/2024): no blood in urine. blood has cleared up. Cough with exposure to sever e acute respiratory syndrome coronavirus 2 (SARS-CoV-2) 10/09/2024 Eye swelling, left 09/11/2024 Echocardiogram abnormal 09/03/2024 Assessment & Plan (12/03/2024 12:01 PM LAMINATING MACHINE OPERATOR HELPER): Echocardiogram noted grade 2 LV diastolic dysfunction. Per last note by Dr. Hercules this was reviewed and appreciated to be more indeterminate. Will continue to work on risk factor reduction with weight loss and regular exercise. Assessment & Plan (09/03/2024 11:48 AM LAMINATING MACHINE OPERATOR HELPER): Echocardiogram noted grade 2 LV diastolic dysfunction. [...] 04/19/2021 Assessment & Plan (12/03/2024 12:02 PM LAMINATING MACHINE OPERATOR HELPER): Stress induced chest pain with a negative [...] review. Assessment & Plan (09/03/2024 11:50 AM LAMINATING MACHINE OPERATOR HELPER): Stress induced chest pain with a negative [...] 10/27/2020 Assessment & Plan (10/09/2024 11:42 AM LAMINATING MACHINE OPERATOR HELPER): Discussed the patient's BMI. The BMI is above average. BMI management plan is completed. BMI Follow-up includes: nutrition counseling, exercise counseling and education provided. Snoring 10/27/2020 Assessment & Plan (12/11/2024 9:57 AM LAMINATING MACHINE OPERATOR HELPER): The patient presents with snoring and daytime fatigue. Per her request, I have ordered a home sleep test and she will follow up here in 4 months. Assessment & Plan (10/27/2020 12:47 PM LAMINATING MACHINE OPERATOR HELPER): Will refer for sleep study Sleep disturbance 10/27/2020 Assessment & Plan (10/27/2020 12:47 PM LAMINATING MACHINE OPERATOR HELPER): Will refer for sleep study Breast cancer screening by mammogram 09/10/2020 Assessment & Plan (09/10/2020 11:38 AM LAMINATING MACHINE OPERATOR HELPER): Retrieve records from previous pcp. Hypothyroidism 09/10/2020 Assessment & Plan (04/29/2022 7:17 AM CDT): Continue medication same dosing at this time, refill as needed. Assessment & Plan (01/21/2022 12:40 PM CDT): Labs entered, continue medications the same time Assessment & Plan (05/08/2021 1:15 PM CDT): Fasting labs entered, will notify patient of results as available Assessment & Plan (10/27/2020 12:46 PM LAMINATING MACHINE OPERATOR HELPER): Will repeat labs, continue medication same at this time Assessment & Plan (09/10/2020 11:39 AM LAMINATING MACHINE OPERATOR HELPER): Fasting labs entered, will notify patient of results as available Continue medication same at this time. Vitamin D deficiency 09/10/2020 Assessment & Plan (10/27/2020 12:46 PM LAMINATING MACHINE OPERATOR HELPER): Will repeat labs, continue medication same at this time Assessment & Plan (09/10/2020 11:39 AM LAMINATING MACHINE OPERATOR HELPER): Fasting labs entered, will notify patient of results as available Continue medication same at this time. Hypertension associated with diabetes 09/10/2020 Overview (08/15/2023): Continue blood pressure medicine daily as directed Assessment & Plan (12/03/2024 12:00 PM LAMINATING MACHINE OPERATOR HELPER): Above goal at home. Increase Amlodipine to 10 mg daily. She will keep a blood pressure diary and we will touch base in 1-2 weeks to review. Assessment & Plan (09/03/2024 11:49 AM LAMINATING MACHINE OPERATOR HELPER): She will stop hydrochlorothiazide and we with [...] available Assessment & Plan (09/10/2020 11:39 AM LAMINATING MACHINE OPERATOR HELPER): Fasting labs entered, will notify patient of results as available Continue medication same at this time. Hyperlipidemia 09/10/2020 Assessment & Plan (12/03/2024 12:00 PM LAMINATING MACHINE OPERATOR HELPER): Continue atorvastatin 80 mg daily and zetia 10 mg daily. Planning to repeat with PCP. Assessment & Plan (09/03/2024 11:47 AM LAMINATING MACHINE OPERATOR HELPER): Continue atorvastatin 80 mg daily. Assessment & [...] session Assessment & Plan (09/10/2020 11:39 AM LAMINATING MACHINE OPERATOR HELPER): Fasting labs entered, will notify patient of results as available Continue medication same at this time. Memory changes 09/10/2020 Assessment & Plan (10/03/2020 12:35 PM LAMINATING MACHINE OPERATOR HELPER): We reviewed recent normal mri of head. Advised referral to neurology for further evaluation and treatment. Assessment & Plan (09/10/2020 11:38 AM LAMINATING MACHINE OPERATOR HELPER): Will taper/discontinue wellbutrin. Will order mri of head to evaluate further. Chronic intractable headache 09/10/2020 Assessment & Plan (10/27/2020 12:46 PM LAMINATING MACHINE OPERATOR HELPER): Wants to hold/not schedule neuro referral at this time. Will continue medication the same. Will refer for sleep study. Assessment & Plan (10/03/2020 12:36 PM LAMINATING MACHINE OPERATOR HELPER): We reviewed recent normal mri of head. Advised referral to neurology for further evaluation and treatment. We discussed adding inderal or other daily medication for prevention, patient wants to start with changing the lexapro first. Assessment & Plan (09/10/2020 11:39 AM LAMINATING MACHINE OPERATOR HELPER): Will evaluate further with mri of head Anxiety 09/10/2020 Assessment & Plan (04/29/2022 7:16 AM CDT): We will increase her cymbalta to 90mg daily. She was advised to notify the office over the next 4w - if ineffective will try adding buspar tid. Assessment & Plan (12/10/2021 11:48 AM LAMINATING MACHINE OPERATOR HELPER): Continue with cymbalta 60mg daily Add bid/prn xanax - advised of potential addictiveness, she expressed understanding. We discussed changing cymbalta or adding buspar tid over the coming month if needing xanax routinely. Assessment & Plan (10/15/2021 3:24 PM LAMINATING MACHINE OPERATOR HELPER): Increase cymbalta from 60mg every day to 90mg every day Assessment & Plan (09/17/2021 1:37 PM LAMINATING MACHINE OPERATOR HELPER): Stable, continue meds same at this time Assessment & Plan (05/08/2021 1:17 PM CDT): Will increase cymbalta. Assessment & Plan (10/27/2020 12:46 PM LAMINATING MACHINE OPERATOR HELPER): Continue medication same Assessment & Plan (10/03/2020 12:37 PM LAMINATING MACHINE OPERATOR HELPER): Taper lexapro every other day x 6 days, then discontinue. Will start cymbalta when taper is finished. We discussed gi workup pending resolution of loose stools. Will also retrieve consult notes from previous pcp to determine date and results of last cscope. Assessment & Plan (09/10/2020 11:40 AM LAMINATING MACHINE OPERATOR HELPER): Taper wellbutrin 1 tab every other day [...] (3.9 % thirty day risk of , PA or cardiac arrest). No further cardiac testing recommended at this time. BMI 31.0-31.9,adult 08/09/2022 02/05/20 Assessment & Plan (08/09/2022 8:53 AM CDT): [...] nutrition counseling, exercise counseling and education provided. [place] eye disease of left eye 06/14/2022 08/09/2022 [...] 01/22/20 Assessment & Plan (10/15/2021 3:24 PM LAMINATING MACHINE OPERATOR HELPER): Increase metformin to 500mg bid Encouraged heart [...] session. Assessment & Plan (12/10/2021 11:49 AM LAMINATING MACHINE OPERATOR HELPER): Discontinue metformin Will initiate topamax 25mg bid for appetite suppression. She was advised that this is an off label utilization and due to concurrent cymbalta she has a risk for serotonin syndrome. She expressed understanding and desire to proceed. She will f/u in 4w for weight management, sooner as needed. Assessment & Plan (10/15/2021 3:24 PM LAMINATING MACHINE OPERATOR HELPER): Increase metformin to 500mg bid Encouraged heart healthy diet, exercise 4x/week for 30min each session Assessment & Plan (09/17/2021 1:38 PM LAMINATING MACHINE OPERATOR HELPER): Obesity is unchanged. Discussed the patient's BMI. [...] 01/21/2022 Assessment & Plan (09/10/2020 11:38 AM LAMINATING MACHINE OPERATOR HELPER): tdap today Encounters Date Type Department Care Team Description 03/14/2025 8:30 AM CDT Office Visit [facility] Internal Medicine at [address] [place] [address] Magdalena Roa, EDWAR Physical exam, annual (Primary Dx); BMI 29.0-29.9,adult; Hypertension associated with diabetes (HCC); Breast cancer screening by mammogram; Vitamin D deficiency; Anxiety; Type 2 diabetes mellitus with hyperlipidemia (HCC); Acquired hypothyroidism; Rash 02/28/2025 Telephone [facility] Internal Medicine at [address] [place] [address] Magdalena Roa, MAINTENANCE SHOP MANAGER 02/26/2025 Documentation [facility] Home Care Services [address] [place] [address] [address] [place] [address] Ej Owusu, AUTO BATTERY BUILDER 02/07/2025 Telephone [facility] [address] [place] [address] [address] [place] [address] Magdalena Roa, MAINTENANCE SHOP MANAGER 02/07/2025 Telephone [facility] [address] [place] [address] [address] [place] [address] Magdalena Roa MAINTENANCE SHOP MANAGER 02/05/2025 Telephone [facility] [address] [place] [address] Eulogio Yost MD Home sleep study results / cpap order 01/31/2025 10:36 AM CDT - 01/31/2025 11:59 PM CDT Hospital Encounter [facility] [address] [place] [address] Snoring Discharge Disposition: Discharge to home or self care 01/24/2025 Telephone [facility] Family Medicine [address] [facility] [address] [place] [address] Magdalena Roa NP 01/14/2025 Results Follow-Up [facility] [address] [facility] [address] [place] [address] [place] [address] Nima Jacques NP Basic metabolic panel 01/09/2025 12:00 PM CDT Clinical Support [facility] [address] [facility] [address] [place] [address] Jo Villalta, PhD Memory changes from Last 3 Months Immunizations Immunization Administration Dates Next Due Flucelvax Influenza Quad 07/31/2020 Influenza, Quadrivalent, Spl it, Preservative Free, Intramuscular 08/15/2023,09/17/2021 Influenza, Unspecified 03/14/2025(Deferr ed: Patient Refused),08/24/2024,08/13/2024(Deferre d: Patient Refused),12/28/2022(Deferred: Patient Refused),12/01/2021(Deferred: Patient Refused) Moderna [...] (HCC) Hyperlipidemia GERD (gastroesophageal reflux disease) Hypothyroidism Sleep apnea Family History Medical History Relation Name Comments [...] drink containing alc ohol? Monthly or less 03/14/2025 Q2: How many drinks containi ng alcohol do you have on a typical day when you are drinking? 1 or 2 03/14/2025 Q3: How often do you have si x or more drinks on one occasion? Never 03/14/2025 PHQ-2 Answer Date Recorded PHQ-2 Total Score (If total score is 3 or more points, staff should administer the PHQ-9) 1 03/14/2025 Personal Safety Answer Date Recorded Have you ever been in or are you currently in a harmful physical or emotional relationship or is someone making you feel afraid or unsafe? 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 Not on file Not on file Obstetrics History Last Filed Vital Signs Vital Sign Reading Time Taken Comments Blood Pressure 126/60 03/14/2025 8:29 AM CDT Pulse 66 03/14/2025 8:29 AM CDT Temperature 36.9 C (98.4 F) 03/14/2025 8:29 AM CDT Respiratory Rate 18 12/11/2024 9:25 AM LAMINATING MACHINE OPERATOR HELPER Oxygen Saturation 96% 03/14/2025 8:29 AM CDT Inhaled Oxygen Concentration - - Weight 69.9 kg (154 lb) 03/14/2025 8:29 AM CDT Height 154.9 cm (5' 1) 03/14/2025 8:29 AM CDT Body Mass Index 29.1 03/14/2025 8:29 AM CDT Plan of Treatment Health Maintenance Due Date Last Done Comments Dilated Eye Exam 1965 Foot Exam 1965 Hepatitis B Screening 1981 Pneumococcal vaccine <65 (1 of 2 - PCV) 1982 Zoster Vaccine (1 of 2) 2013 Covid-19 Vaccine (4 - 2023-2 5 season) 2024 10/07/2021, 01/10/2021, 12/13/2020 Breast Cancer Screening-Mammogram 09/05/2024 023, 04/17/2021 Hemoglobin A1C 09/01/2025 03/01/2025, 07/31, 12/29/2023, Additional history exists Albumin Creatinine Ratio, Urine 03/01/2026 03/01/2025, 08/13/2024, 12/29/2023 Lipid Panel 03/01/2026 03/01/2025, 07/31, 12/29/2023, Additional history exists eGFR 03/01/2026 03/01/2025, 12/29, 10/05/2024, Additional history exists Depression Screening 03/14/2026 03/14/2025, 10/09/2024, 09/11/2024, Additional history exists Regular Well Visit/Exam 18-64 03/14/2026, 02/10/2024, 12/28/2022 DTaP/Tdap/Td Vaccine (2 - Td or Tdap) 09/10/2030 09/10/2020, 12/05/1998 Colon Cancer Screening-Colonoscopy 10/15/20342023, 03/19/2014 Hepatitis C Screening Completed 01/29/2023 Influenza Vaccine Completed 08/24/2024, , 09/17/2021, Additional history exists Medical Devices Implanted Type Area Developmental Behavioral Physician Device Identifier Shelf Expiration Date Model / Serial / Lot [employer] Oscar Upsylon 35.4cm Elongation Profile Lightweight Large Pore Low [id number] - [id number] Implanted:Qty: 1 on 02/14/2024 by Lam Munoz MD at [facility] Mesh N/A: Pelvis [employer] Oscar 07/30/2026 [id number] / / [id number] [employer] Sling Urinary Incontinence Female Stress Short Desara Blue Antonio-[id number] - [id number] Implanted:Qty: 1 on 02/14/2024 by aLm Munoz MD at [facility] N/A: Pelvis [employer] 07/21/2026 [id number] / / [id number] Procedures Procedure Name Priority Date/Time Associated Diagnosis Comments HEMOGLOBIN A1C Routine 03/01/2025 2:33 PM CDT Type 2 diabetes mellitus with hyperlipidemia (HCC) COMPREHENSIVE METABOLIC PANEL Routine 03/01/2025 2:33 PM CDT Type 2 diabetes mellitus with hyperlipidemia (HCC) ALBUMIN CREATININE RATIO, URINE Routine 03/01/2025 2:33 PM CDT Type 2 diabetes mellitus with hyperlipidemia (HCC) LIPID PANEL Routine 03/01/2025 2:32 PM CDT Type 2 diabetes mellitus with hyperlipidemia (HCC) PORTABLE/HOME SLEEP STUDY Routine 01/31/2025 10:36 AM CDT Snoring BASIC METABOLIC PANEL Routine 01/11/2025 3:52 PM CDT Hypertension associated with diabetes (HCC) COLONOSCOPY 10/15/2024 12:54 PM LAMINATING MACHINE OPERATOR HELPER HEPATITIS C ANTIBODY Routine 01/29/2023 11:12 AM CDT Encounter for hepatitis C screening test for low risk patient DIAGNOSTIC MAMMOGRAM BILATERAL W GERSON Schedule Routine, Read Routine (OP Routine) 04/17/2021 9:58 AM CDT Breast pain in female from Last 3 Months or Most Recently Relevant to Health Maintenance Results * Albumin Creatinine Ratio, Urine (03/01/2025 2:33 PM CDT) Creatinine, ur 39 20 - 275 mg/dL [facility] Microalbumin, ur 0.4 See Note: mg/dL [facility] Comment: Reference Range: Reference Range Not established Microalbumin/creat ratio 10 <30 mg/g creat [facility] Comment: [...] to be within a diagnostic category. Urine 03/01/2025 2:33 PM CDT 03/01/2025 2:34 PM CDT Narrative [facility] - 03/02/2025 5:22 AM CDT FASTING:NO FASTING: NO us Magdalena Roa NP LAB URINE ORDERABLES Final Re sult [facility] [address] [place] [address] * (ABNORMAL) Hemoglobin A1c (03/01/2025 2:33 PM CDT) Hgb A1C 5.9(H) <5.7 % of total Hgb [facility] [...] for diagnosis of diabetes for children. Blood 03/01/2025 2:33 PM CDT 03/01/2025 2:34 PM CDT Narrative [facility] - 03/02/2025 5:22 AM CDT FASTING:NO FASTING: NO Magdalena Roa NP LAB BLOOD ORDERABLES Final Re sult [facility] [address] [place] [address] * Comprehensive metabolic panel (03/01/2025 2:33 PM CDT) [facility] Glucose 71 65 - 139 mg/dL [facility] Comment: Non-fasting reference interval BUN 13 7 - 25 mg/dL [facility] Creatinine 0.73 0.50 - 1.05 mg/dL [facility] eGFR 94 > OR = 60 mL/min/1.7 3m2 [facility] BUN/creat ratio SEE NOTE: 6 - 22 (calc) [facility] Comment: Not Reported: BUN and Creatinine are within reference range. Sodium 140 135 - 146 mmol/L [facility] Potassium, pl 3.7 3.5 - 5.3 mmol/L [facility] Chloride 101 98 - 110 mmol/L [facility] CO2 30 20 - 32 mmol/L [facility] Calcium 9.8 8.6 - 10.4 mg/dL [facility] Protein, sr 7.0 6.1 - 8.1 g/dL [facility] Albumin 4.6 3.6 - 5.1 g/dL [facility] GLOBULIN 2.4 1.9 - 3.7 g/dL (calc) [facility] Alb/glob ratio 1.9 1.0 - 2.5 (calc) [facility] Bilirubin, total 0.5 0.2 - 1.2 mg/dL [facility] Alk phos 111 37 - 153 U/L [facility] AST 16 10 - 35 U/L [facility] ALT (SGPT) 15 6 - 29 U/L [facility] Blood 03/01/2025 2:33 PM CDT 03/01/2025 2:34 PM CDT Narrative [facility] - 03/02/2025 5:22 AM CDT FASTING:NO FASTING: NO Magdalena Roa MAINTENANCE SHOP MANAGER LAB BLOOD ORDERABLES Final Re sult Performing Organization Address [facility] Co de Phone Number [facility] [address] [place] [address] * Lipid panel (03/01/2025 2:32 PM CDT) [facility] Cholesterol 175 <200 mg/dL [facility] HDL 64 > OR = 50 mg/dL [facility] Triglycerides 91 <150 mg/dL [facility] LDL 92 mg/dL (calc) [facility] Comment: Reference range: <100 Desirable range <100 mg/dL for primary prevention; <70 mg/dL for patients with CHD or diabetic patients with > or = 2 CHD risk factors. LDL-C is now calculated using the Maryan calculation, which is a validated novel method providing better accuracy than the Friedewald equation in the estimation of LDL-C. Henri MAI et al. ODESSA. 2013;310(19): 3975-6535 (http://education.Venddo.com/faq/WBF873) Chol/HDL ratio 2.7 <5.0 (calc) [facility] Non-HDL, (LDL+VLDL) 111 <130 mg/dL (calc) [facility] Comment: For patients with diabetes plus 1 major ASCVD risk factor, treating to a non-HDL-C goal of <100 mg/dL (LDL-C of <70 mg/dL) is considered a therapeutic option. Blood 03/01/2025 2:32 PM CDT 03/01/2025 2:32 PM CDT Narrative [facility] - 03/02/2025 1:54 AM CDT FASTING:NO FASTING: NO Magdalena Roa MAINTENANCE SHOP MANAGER LAB BLOOD ORDERABLES Final Re sult Performing Organization Address [facility]/ZIP Co de Phone Number [facility] [address] [place] [address] * Portable/Home Sleep Study (01/31/2025 10:36 AM CDT) Eulogio Yost MD SLEEP CENTER ORDERABLES F inal Result [facility] [address] [place] [address] * Basic metabolic panel (01/11/2025 3:52 PM CDT) Glucose 94 65 - 139 mg/dL [facility] Comment: Non-fasting reference interval BUN 14 7 - 25 mg/dL [facility] Creatinine 0.93 0.50 - 1.05 mg/dL [facility] eGFR 70 > OR = 60 mL/min/1.7 3m2 [facility] BUN/creat ratio SEE NOTE: 6 - 22 (calc) [facility] Comment: Not Reported: BUN and Creatinine are within reference range. Sodium 142 135 - 146 mmol/L [facility] Potassium, pl 4.2 3.5 - 5.3 mmol/L [facility] Chloride 104 98 - 110 mmol/L [facility] CO2 29 20 - 32 mmol/L [facility] Calcium 9.6 8.6 - 10.4 mg/dL [facility] Blood 01/11/2025 3:52 PM CDT 01/11/2025 3:52 PM CDT Narrative [facility] - 01/12/2025 4:45 AM CDT FASTING:NO FASTING: NO us Nima Jacques MAINTENANCE SHOP MANAGER LAB BLOOD ORDERABLES Fin al Result [facility] [address] [place] [address] * Colonoscopy (10/15/2024 12:54 PM LAMINATING MACHINE OPERATOR HELPER) Anatomical Region Laterality Modality Other Narrative Procedure Note Deshaun West MD - 10/15/2024 12:[address] [facility] END[facility] Patient Name: Cira Moreland Procedure Date: 10/15/2024 12:54PM Date of : 1965 Admit Type: Outpatient Age: 59 Gender: Female Attending MD: Deshaun West M.D. Room: [facility] ENDOSCOPY ROOM 06 Note Status: Finalized Procedure: [...] The scope was passed under direct vision.The [id number] colonoscope was introduced through theanus and advanced [...] On: 10/15/2024 12:54 PM Recognized by the [employer] for promoting quality in endoscopy us Deshaun West MD ENDOSCOPY PROCEDURES Final Resul t * Hepatitis C antibody (01/29/2023 11:12 AM CDT) Hep C Ab Non Reactive Non Reactive [facility] - Comment: HCV antibody alone does not differentiate between previously resolved infection and active infection. Equivocal and Reactive HCV antibody results should be followed up with an HCV RNA test to support the diagnosis of active HCV infection. Blood 01/29/2023 11:1 2 AM CDT 01/29/2023 Narrative [facility] - 01/30/2023 9:36 AM CDT Performed at: [address] [id number] Warp Drawer: Chace Salvador PhD, Phone: [phone] Magdalena Roa NP LAB MICROBIOLOGY - GENERAL OR DERABLES Final Result [facility] - * Diagnostic Mammogram Bilateral W Gerson (04/17/2021 [...] Most Recently Relevant to Health Maintenance Insurance [facility] CHOICE PLUS [facility] H[facility]PPO Address: [facility] [address] [place] [address] [facility] Address: [address] [place] [address] [facility]: [place] [address] [facility] CHO[facility]US [facility] H[facility]/PPO Address: [facility] [address] [place] [address] Advance Directives For more information, please contact: [phone] * Full Code (Latest Code Status on File) Date Activated Date Inactivated Comments 02/14/2024 5:47 PM 02/15/2024 5:57 PM Care Teams On Call Relationship Specialty Start Date End Date Magdalena Roa NP [address] [address] PCP - General Internal Medicine 02/04/23
--- OUTSIDE RECORDS SUMMARY | 2025-04-11 17:43 | XMS_ITS | Referral Summary ---
Author Organization [facility] [address] [place] [address] [place] [id number] Care Team Providers Care Radio Time Salesperson Name Role Phone Magdalena Roa CREDIT REPORT CHECKER Primary Care Provider [phone] Encounters Date Type Department Care Team Description 03/14/2025 8:30 AM CDT Office Visit [facility] Internal Medicine at [address] [place] [address] Magdalena Roa NP Physical exam, annual (Primary Dx); BMI 29.0-29.9,adult; Hypertension associated with diabetes (HCC); Breast cancer screening by mammogram; Vitamin D deficiency; Anxiety; Type 2 diabetes mellitus with hyperlipidemia (HCC); Acquired hypothyroidism; Rash 02/28/2025 Telephone [facility] Medical [facility] Internal Medicine at [address] [place] [address] Magdalena Roa NP 02/26/2025 Documentation [facility] Home Care Services [address] [place] [address] [address] [place] [address] Ej Owusu, GROCERY ASSOCIATE 02/07/2025 Telephone [facility] Family Medicine [address] [place] [address] [address] [place] [address] Magdalena Roa NP 02/07/[address] [place] [address] Magdalena Roa NP 02/05/2025 Telephone [facility] [address] [place] [address] Eulogio Yost MD Home sleep study results / cpap order 01/31/2025 10:36 AM CDT - 01/31/2025 11:59 PM CDT Hospital Encounter [facility] [address] [place] [address] Snoring Discharge Disposition: Discharge to home or self care 01/24/2025 Telephone [facility] Family Medicine [address] [facility] [address] [place] [address] Magdalena Roa NP 01/14/2025 Results Follow-Up [facility] Cardiology [address] [facility] 8[address] [place] [address] [place] [address] Nima Jacques NP Basic metabolic panel 01/09/2025 12:00 PM CDT Clinical Support [facility] Neuro Psychology [address] [facility] [address] [place] [address] Jo Villalta, PhD Memory changes from Last 3 Months Allergies Active Allergy [...] once a week 12 capsule [address] (CYMBALTA) 30 mg capsuleIndicatio [...] 4 (four) times a day 15 g 025 2025 Active semaglutide (Ozempic) 1 mg/dose (4 mg/3 mL) pen injector injectionIndicat ions:Type 2 diabetes mellitus with hyperlipidemia (HCC) INJECT 1MG SUBCUTANEOUSLY ONCE A WEEK 9 mL [address] (CYMBALTA) 30 mg capsuleIndicatio ns:Anxiety Take 1 capsule (30 mg total) by mouth daily 90 capsule 1 024 2024 Discontinued(R eorder) ezetimibe (ZETIA) 10 mg tabletIndication s:Type 2 diabetes mellitus with hyperlipidemia (HCC) Take 1 tablet (10 mg total) by mouth daily 90 tablet 1 024 2024 Discontinued(R eorder) atorvastatin (LIPITOR) 80 mg [...] 09/03/2024 Assessment & Plan (12/03/2024 12:01 PM FINISH PATCHER): Echocardiogram noted grade 2 LV diastolic dysfunction. Per last note by Dr. Hercules this was reviewed and appreciated to be more indeterminate. Will continue to work on risk factor reduction with weight loss and regular exercise. Assessment & Plan (09/03/2024 11:48 AM FINISH PATCHER): Echocardiogram noted grade 2 LV diastolic dysfunction. [...] 04/19/2021 Assessment & Plan (12/03/2024 12:02 PM FINISH PATCHER): Stress induced chest pain with a negative [...] review. Assessment & Plan (09/03/2024 11:50 AM FINISH PATCHER): Stress induced chest pain with a negative [...] 10/27/2020 Assessment & Plan (10/09/2024 11:42 AM FINISH PATCHER): Discussed the patient's BMI. The BMI is above average. BMI management plan is completed. BMI Follow-up includes: nutrition counseling, exercise counseling and education provided. Snoring 10/27/2020 Assessment & Plan (12/11/2024 9:57 AM FINISH PATCHER): The patient presents with snoring and daytime fatigue. Per her request, I have ordered a home sleep test and she will follow up here in 4 months. Assessment & Plan (10/27/2020 12:47 PM FINISH PATCHER): Will refer for sleep study Sleep disturbance 10/27/2020 Assessment & Plan (10/27/2020 12:47 PM FINISH PATCHER): Will refer for sleep study Breast cancer screening by mammogram 09/10/2020 Assessment & Plan (09/10/2020 11:38 AM FINISH PATCHER): Retrieve records from previous pcp. Hypothyroidism 09/10/2020 Assessment & Plan (04/29/2022 7:17 AM CDT): Continue medication same dosing at this time, refill as needed. Assessment & Plan (01/21/2022 12:40 PM CDT): Labs entered, continue medications the same time Assessment & Plan (05/08/2021 1:15 PM CDT): Fasting labs entered, will notify patient of results as available Assessment & Plan (10/27/2020 12:46 PM FINISH PATCHER): Will repeat labs, continue medication same at this time Assessment & Plan (09/10/2020 11:39 AM FINISH PATCHER): Fasting labs entered, will notify patient of results as available Continue medication same at this time. Vitamin D deficiency 09/10/2020 Assessment & Plan (10/27/2020 12:46 PM FINISH PATCHER): Will repeat labs, continue medication same at this time Assessment & Plan (09/10/2020 11:39 AM FINISH PATCHER): Fasting labs entered, will notify patient of results as available Continue medication same at this time. Hypertension associated with diabetes 09/10/2020 Overview (08/15/2023): Continue blood pressure medicine daily as directed Assessment & Plan (12/03/2024 12:00 PM FINISH PATCHER): Above goal at home. Increase Amlodipine to 10 mg daily. She will keep a blood pressure diary and we will touch base in 1-2 weeks to review. Assessment & Plan (09/03/2024 11:49 AM FINISH PATCHER): She will stop hydrochlorothiazide and we with [...] available Assessment & Plan (09/10/2020 11:39 AM FINISH PATCHER): Fasting labs entered, will notify patient of results as available Continue medication same at this time. Hyperlipidemia 09/10/2020 Assessment & Plan (12/03/2024 12:00 PM FINISH PATCHER): Continue atorvastatin 80 mg daily and zetia 10 mg daily. Planning to repeat with PCP. Assessment & Plan (09/03/2024 11:47 AM FINISH PATCHER): Continue atorvastatin 80 mg daily. Assessment & [...] session Assessment & Plan (09/10/2020 11:39 AM FINISH PATCHER): Fasting labs entered, will notify patient of results as available Continue medication same at this time. Memory changes 09/10/2020 Assessment & Plan (10/03/2020 12:35 PM FINISH PATCHER): We reviewed recent normal mri of head. Advised referral to neurology for further evaluation and treatment. Assessment & Plan (09/10/2020 11:38 AM FINISH PATCHER): Will taper/discontinue wellbutrin. Will order mri of head to evaluate further. Chronic intractable headache 09/10/2020 Assessment & Plan (10/27/2020 12:46 PM FINISH PATCHER): Wants to hold/not schedule neuro referral at this time. Will continue medication the same. Will refer for sleep study. Assessment & Plan (10/03/2020 12:36 PM FINISH PATCHER): We reviewed recent normal mri of head. Advised referral to neurology for further evaluation and treatment. We discussed adding inderal or other daily medication for prevention, patient wants to start with changing the lexapro first. Assessment & Plan (09/10/2020 11:39 AM FINISH PATCHER): Will evaluate further with mri of head Anxiety 09/10/2020 Assessment & Plan (04/29/2022 7:16 AM CDT): We will increase her cymbalta to 90mg daily. She was advised to notify the office over the next 4w - if ineffective will try adding buspar tid. Assessment & Plan (12/10/2021 11:48 AM FINISH PATCHER): Continue with cymbalta 60mg daily Add bid/prn xanax - advised of potential addictiveness, she expressed understanding. We discussed changing cymbalta or adding buspar tid over the coming month if needing xanax routinely. Assessment & Plan (10/15/2021 3:24 PM FINISH PATCHER): Increase cymbalta from 60mg every day to 90mg every day Assessment & Plan (09/17/2021 1:37 PM FINISH PATCHER): Stable, continue meds same at this time Assessment & Plan (05/08/2021 1:17 PM CDT): Will increase cymbalta. Assessment & Plan (10/27/2020 12:46 PM FINISH PATCHER): Continue medication same Assessment & Plan (10/03/2020 12:37 PM FINISH PATCHER): Taper lexapro every other day x 6 days, then discontinue. Will start cymbalta when taper is finished. We discussed gi workup pending resolution of loose stools. Will also retrieve consult notes from previous pcp to determine date and results of last cscope. Assessment & Plan (09/10/2020 11:40 AM FINISH PATCHER): Taper wellbutrin 1 tab every other day [...] (3.9 % thirty day risk of , DE or cardiac arrest). No further cardiac testing [...] nutrition counseling, exercise counseling and education provided. [place] eye disease of left eye 06/14/2022 08/09/2022 [...] 01/22/20 Assessment & Plan (10/15/2021 3:24 PM FINISH PATCHER): Increase metformin to 500mg bid Encouraged heart [...] session. Assessment & Plan (12/10/2021 11:49 AM FINISH PATCHER): Discontinue metformin Will initiate topamax 25mg bid for appetite suppression. She was advised that this is an off label utilization and due to concurrent cymbalta she has a risk for serotonin syndrome. She expressed understanding and desire to proceed. She will f/u in 4w for weight management, sooner as needed. Assessment & Plan (10/15/2021 3:24 PM FINISH PATCHER): Increase metformin to 500mg bid Encouraged heart healthy diet, exercise 4x/week for 30min each session Assessment & Plan (09/17/2021 1:38 PM FINISH PATCHER): Obesity is unchanged. Discussed the patient's BMI. [...] 01/21/2022 Assessment & Plan (09/10/2020 11:38 AM FINISH PATCHER): tdap today Immunizations Immunization Administration Dates Next [...] on file Legal Sex Female 4:52 AM FINISH PATCHER Gender Identity Not on file Sexual Orientation Not on file Occupation Industry Job Start Date Job End Date [employer] Not on file Not on file Not on file Last Filed Vital Signs Vital Sign Reading Time Taken Comments Blood Pressure 126/60 03/14/2025 8:29 AM CDT Pulse 66 03/14/2025 8:29 AM CDT Temperature 36.9 C (98.4 F) 03/14/2025 8:29 AM CDT Respiratory Rate 18 12/11/2024 9:25 AM FINISH PATCHER Oxygen Saturation 96% 03/14/2025 8:29 AM CDT Inhaled Oxygen Concentration - - Weight 69.9 kg (154 lb) 03/14/2025 8:29 AM CDT Height 154.9 cm (5' 1) 03/14/2025 8:29 AM CDT Body Mass Index 29.1 03/14/2025 8:29 AM CDT Plan of Treatment Not on file Medical Devices Implanted Type Area Quality Systems Engineer Device Identifier Shelf Expiration Date Model / Serial / Lot [employer] Oscar Upsylon 35.4cm Elongation Profile Lightweight Large Pore Low [id number] - [id number] Implanted:Qty: 1 on 02/14/2024 by Lam Munoz MD at [facility] Mesh N/A: Pelvis [employer] Oscar 07/30/2026 [id number] / / [id number] [employer] Sling Urinary Incontinence Female Stress Short Desara Blue [id number] - [id number] Implanted:Qty: 1 on 02/14/2024 by Lam Munoz MD at [facility] N/A: Pelvis [employer] 07/21/2026 [id number] / / [id number] Procedures Procedure Name Priority Date/Time Associated Diagnosis [...] with diabetes (HCC) COLONOSCOPY 10/15/2024 12:54 PM FINISH PATCHER HEPATITIS C ANTIBODY Routine 01/29/2023 11:12 AM [...] AM CDT FASTING:NO FASTING: NO Magdalena Roa CREDIT REPORT CHECKER LAB URINE ORDERABLES Final Re sult Performing Organization Address City/[facility]/ZIP Co de Phone Number [facility] [address] [place] [address] * (ABNORMAL) Hemoglobin A1c (03/01/2025 2:33 PM CDT) Hgb A1C 5.9(H) <5.7 % of total Hgb [facility]ack[facility] Liu Comment: For someone without known diabetes, [...] AM CDT FASTING:NO FASTING: NO Magdalena Roa CREDIT REPORT CHECKER LAB BLOOD ORDERABLES Final Re sult [facility] [address] [place] [address] * Comprehensive metabolic panel (03/01/2025 2:33 PM CDT) Glucose 71 65 - 139 mg/dL [employer]Mackenzie Liu Comment: Non-fasting reference interval BUN 13 7 - 25 mg/dL Hermann iLu Creatinine 0.73 0.50 - 1.05 mg/dL Hermann Liu eGFR 94 > OR = 60 mL/min/1.7 3m2 Hermann Liu BUN/creat ratio SEE NOTE: 6 - 22 (calc) Hermann Liu Comment: Not Reported: BUN and Creatinine are within reference range. Sodium 140 135 - 146 mmol/L Hermann Liu Potassium, pl 3.7 3.5 - 5.3 mmol/L Hermann BanksMackenzie Liu Chloride 101 98 - 110 mmol/L Hermann Liu CO2 30 20 - 32 mmol/L Hermann Liu Calcium 9.8 8.6 - 10.4 mg/dL Hermann Liu Protein, sr 7.0 6.1 - 8.1 g/dL Hermann Liu Albumin 4.6 3.6 - 5.1 g/dL Hermann Liu GLOBULIN 2.4 1.9 - 3.7 g/dL (calc) Hermann Liu Alb/glob ratio 1.9 1.0 - 2.5 (calc) Hermann Liu Bilirubin, total 0.5 0.2 - 1.2 mg/dL Hermann Liu Alk phos 111 37 - 153 U/L Hermann BanksMackenzie Liu AST 16 10 - 35 U/L Hermann Liu ALT (SGPT) 15 6 - 29 U/L Hermann Liu Blood 03/01/2025 2:33 PM CDT 03/01/2025 2:34 PM CDT Narrative [facility] - 03/02/2025 5:22 AM CDT FASTING:NO FASTING: NO us Magdalena Roa NP LAB BLOOD ORDERABLES Final Re sult [facility] [address] [place] [address] * Lipid panel (03/01/2025 2:32 PM CDT) Cholesterol 175 <200 mg/dL Hermann Liu HDL 64 > OR = 50 mg/dL [facility] Triglycerides 91 <150 mg/dL [facility] LDL 92 mg/dL (calc) [facility] Liu Comment: Reference range: <100 Desirable range <100 mg/dL for primary prevention; <70 mg/dL for patients with CHD or diabetic patients with > or = 2 CHD risk factors. LDL-C is now calculated using the Maryan calculation, which is a validated novel method providing better accuracy than the Friedewald equation in the estimation of LDL-C. Henri SS et al. ODESSA. 2013;310(19): 9735-5038 (http://education.Anzhi.com/faq/FIR962) Chol/HDL ratio 2.7 <5.0 (calc) Hermann UtterzTamika Liu Non-HDL, (LDL+VLDL) 111 <130 mg/dL (calc) [facility] Liu Comment: For patients with diabetes plus 1 major ASCVD risk factor, treating to a non-HDL-C goal of <100 mg/dL (LDL-C of <70 mg/dL) is considered a therapeutic option. Blood 03/01/2025 2:32 PM CDT 03/01/2025 2:32 PM CDT Narrative [facility] - 03/02/2025 1:54 AM CDT FASTING:NO FASTING: NO Magdalena Roa NP LAB BLOOD ORDERABLES Final Re sult Performing Organization Address City/[facility]/ZIP Co de Phone Number [facility] [address] [place] [address] * Portable/Home Sleep Study (01/31/2025 10:36 AM CDT) Eulogio Yost MD SLEEP CENTER ORDERABLES F inal Result [facility] SLEEP MEDICINE [address] [place] [address] * Basic metabolic panel (01/11/2025 3:52 PM CDT) [facility] Glucose 94 65 - 139 mg/dL Hermann Liu Comment: Non-fasting reference interval BUN 14 7 - 25 mg/dL Hermann Liu Creatinine 0.93 0.50 - 1.05 mg/dL Hermann Liu eGFR 70 > OR = 60 mL/min/1.7 3m2 Hermann Liu BUN/creat ratio SEE NOTE: (calc) Hermann Liu Comment: Not Reported: BUN and Creatinine are within reference range. Sodium 142 135 - 146 mmol/L Hermann Liu Potassium, pl 4.2 3.5 - 5.3 mmol/L Hermann Liu Chloride 104 98 - 110 mmol/L Hermann Lui CO2 29 20 - 32 mmol/L Hermann BanksLowfootMackenzie Liu Calcium 9.6 8.6 - 10.4 mg/dL Hermann Liu Blood 01/11/2025 3:52 PM CDT 01/11/2025 3:52 PM CDT Narrative [facility] - 01/12/2025 4:45 AM CDT FASTING:NO FASTING: NO us Nima Jacques CREDIT REPORT CHECKER LAB BLOOD ORDERABLES Fin al Result HERMAN[facility] Liu [address] [place] [address] * Colonoscopy (10/15/2024 12:54 PM FINISH PATCHER) Anatomical Region Laterality Modality Other Narrative Procedure Note Deshaun West MD - 10/15/2024 12:54 PM [facility] Patient Name: Cira Moreland Procedure Date: 10/15/2024 12:54PM Date of : 1965 Admit Type: Outpatient Age: 59 Gender: Female Attending MD: Deshaun West M.D. Room: [facility] ENDOSCOPY ROOM 06 Note Status: [...] The scope was passed under direct vision.The [id number]-[id number] colonoscope was introduced through theanus and advanced [...] Repeat colonoscopy in 5 years for surveillance. Dehsaun West M.D. Deshaun West M.D. 10/15/2024 1:17:26 PM . Number of Addenda: 0 Note Initiated On: 10/15/2024 12:54 PM Recognized by the [employer] for promoting quality [...] - 01/30/2023 9:36 AM CDT Performed at: - [facility] [address] [id number] [facility] Practitioner: Chace Salvador PhD, Phone: [phone] Magdalena Roa CREDIT REPORT CHECKER LAB MICROBIOLOGY - GENERAL OR DERABLES Final [...] Most Recently Relevant to Health Maintenance Insurance [facility] [place] [place] [address] CHOICE PLUS CHOICE PLUS CHOICE PLUS Advance Directives For more information, please contact: [phone] * Full Code (Latest Code Status on File) Date Activated Date Inactivated Comments 02/14/2024 5:47 PM 02/15/2024 5:57 PM Care Teams Radio Time Salesperson Relationship Specialty Start Date End Date Magdalena Roa, CREDIT REPORT CHECKER [address] [facility] [address] [place] [address] PCP - General Internal Medicine 02/04/23
[2025-04-11 17:49] VITALS: BP 155/65; PULSE 75; RESP 18; TEMP 36.6; O2SAT 100
--- OUTSIDE RECORDS SUMMARY | 2025-04-11 18:15 | XMS_ITS | Referral Summary ---
Author Organization [facility] [address] [place] [address] [place] [phone] Care Team Providers Care Stepdown Nurse Name Role Phone Magdalena Roa DIRECTOR OF HUMAN RESOURCES Primary Care Provider [phone] Encounters Date Type Department Care Team Description 03/14/2025 8:30 AM CDT Office Visit [facility] Medical Group Internal Medicine at [address] [place] [address] Magdalena Roa NP Physical exam, annual (Primary Dx); BMI 29.0-29.9,adult; Hypertension associated with diabetes (HCC); Breast cancer screening by mammogram; Vitamin D deficiency; Anxiety; Type 2 diabetes mellitus with hyperlipidemia (HCC); Acquired hypothyroidism; Rash 02/28/[address] [facility] Medical [facility] Internal Medicine at [address] [place] [address] Magdalena Roa NP 02/26/[address] [facility] Home Care Services [address] [place] [address] [address] [place] [address] Ej Owusu, VIRTUAL RECRUITER 02/07/2025 Telephone [facility] Family Medicine [address] [place] [address] [address] [place] [address] Magdalena Roa NP 02/07/[address] [place] [address] Magdalena Roa NP 02/05/2025 Telephone [facility] [address] [place] [address] Eulogio Yost MD Home sleep study results / cpap order 01/31/2025 10:36 AM CDT - 01/31/2025 11:59 PM CDT Hospital Encounter [facility] [address] [place] [address] Snoring Discharge Disposition: Discharge to home or self care 01/24/[address] [facility] Medical Group Family Medicine [address] [facility] [address] [place] [address] Magdalena Roa NP 01/14/2025 Results Follow-Up [facility] Cardiology [address] [facility] 8[address] [place] [address] [place] [address] Nima Jacques NP Basic metabolic panel 01/09/2025 12:00 PM CDT Clinical Support [facility] Neuro Psychology [address] [facility] [address] [place] [address] Jo Villalta, PhD Memory changes [...] 09/03/2024 Assessment & Plan (12/03/2024 12:01 PM TRACK WORKER): Echocardiogram noted grade 2 LV diastolic dysfunction. Per last note by Dr. Hercules this was reviewed and appreciated to be more indeterminate. Will continue to work on risk factor reduction with weight loss and regular exercise. Assessment & Plan (09/03/2024 11:48 AM TRACK WORKER): Echocardiogram noted grade 2 LV diastolic dysfunction. [...] 04/19/2021 Assessment & Plan (12/03/2024 12:02 PM TRACK WORKER): Stress induced chest pain with a negative [...] review. Assessment & Plan (09/03/2024 11:50 AM TRACK WORKER): Stress induced chest pain with a negative [...] 10/27/2020 Assessment & Plan (10/09/2024 11:42 AM TRACK WORKER): Discussed the patient's BMI. The BMI is above average. BMI management plan is completed. BMI Follow-up includes: nutrition counseling, exercise counseling and education provided. Snoring 10/27/2020 Assessment & Plan (12/11/2024 9:57 AM TRACK WORKER): The patient presents with snoring and daytime fatigue. Per her request, I have ordered a home sleep test and she will follow up here in 4 months. Assessment & Plan (10/27/2020 12:47 PM TRACK WORKER): Will refer for sleep study Sleep disturbance 10/27/2020 Assessment & Plan (10/27/2020 12:47 PM TRACK WORKER): Will refer for sleep study Breast cancer screening by mammogram 09/10/2020 Assessment & Plan (09/10/2020 11:38 AM TRACK WORKER): Retrieve records from previous pcp. Hypothyroidism 09/10/2020 Assessment & Plan (04/29/2022 7:17 AM CDT): Continue medication same dosing at this time, refill as needed. Assessment & Plan (01/21/2022 12:40 PM CDT): Labs entered, continue medications the same time Assessment & Plan (05/08/2021 1:15 PM CDT): Fasting labs entered, will notify patient of results as available Assessment & Plan (10/27/2020 12:46 PM TRACK WORKER): Will repeat labs, continue medication same at this time Assessment & Plan (09/10/2020 11:39 AM TRACK WORKER): Fasting labs entered, will notify patient of results as available Continue medication same at this time. Vitamin D deficiency 09/10/2020 Assessment & Plan (10/27/2020 12:46 PM TRACK WORKER): Will repeat labs, continue medication same at this time Assessment & Plan (09/10/2020 11:39 AM TRACK WORKER): Fasting labs entered, will notify patient of results as available Continue medication same at this time. Hypertension associated with diabetes 09/10/2020 Overview (08/15/2023): Continue blood pressure medicine daily as directed Assessment & Plan (12/03/2024 12:00 PM TRACK WORKER): Above goal at home. Increase Amlodipine to 10 mg daily. She will keep a blood pressure diary and we will touch base in 1-2 weeks to review. Assessment & Plan (09/03/2024 11:49 AM TRACK WORKER): She will stop hydrochlorothiazide and we with [...] available Assessment & Plan (09/10/2020 11:39 AM TRACK WORKER): Fasting labs entered, will notify patient of results as available Continue medication same at this time. Hyperlipidemia 09/10/2020 Assessment & Plan (12/03/2024 12:00 PM TRACK WORKER): Continue atorvastatin 80 mg daily and zetia 10 mg daily. Planning to repeat with PCP. Assessment & Plan (09/03/2024 11:47 AM TRACK WORKER): Continue atorvastatin 80 mg daily. Assessment & [...] session Assessment & Plan (09/10/2020 11:39 AM TRACK WORKER): Fasting labs entered, will notify patient of results as available Continue medication same at this time. Memory changes 09/10/2020 Assessment & Plan (10/03/2020 12:35 PM TRACK WORKER): We reviewed recent normal mri of head. Advised referral to neurology for further evaluation and treatment. Assessment & Plan (09/10/2020 11:38 AM TRACK WORKER): Will taper/discontinue wellbutrin. Will order mri of head to evaluate further. Chronic intractable headache 09/10/2020 Assessment & Plan (10/27/2020 12:46 PM TRACK WORKER): Wants to hold/not schedule neuro referral at this time. Will continue medication the same. Will refer for sleep study. Assessment & Plan (10/03/2020 12:36 PM TRACK WORKER): We reviewed recent normal mri of head. Advised referral to neurology for further evaluation and treatment. We discussed adding inderal or other daily medication for prevention, patient wants to start with changing the lexapro first. Assessment & Plan (09/10/2020 11:39 AM TRACK WORKER): Will evaluate further with mri of head Anxiety 09/10/2020 Assessment & Plan (04/29/2022 7:16 AM CDT): We will increase her cymbalta to 90mg daily. She was advised to notify the office over the next 4w - if ineffective will try adding buspar tid. Assessment & Plan (12/10/2021 11:48 AM TRACK WORKER): Continue with cymbalta 60mg daily Add bid/prn xanax - advised of potential addictiveness, she expressed understanding. We discussed changing cymbalta or adding buspar tid over the coming month if needing xanax routinely. Assessment & Plan (10/15/2021 3:24 PM TRACK WORKER): Increase cymbalta from 60mg every day to 90mg every day Assessment & Plan (09/17/2021 1:37 PM TRACK WORKER): Stable, continue meds same at this time Assessment & Plan (05/08/2021 1:17 PM CDT): Will increase cymbalta. Assessment & Plan (10/27/2020 12:46 PM TRACK WORKER): Continue medication same Assessment & Plan (10/03/2020 12:37 PM TRACK WORKER): Taper lexapro every other day x 6 days, then discontinue. Will start cymbalta when taper is finished. We discussed gi workup pending resolution of loose stools. Will also retrieve consult notes from previous pcp to determine date and results of last cscope. Assessment & Plan (09/10/2020 11:40 AM TRACK WORKER): Taper wellbutrin 1 tab every other day [...] (3.9 % thirty day risk of , SD or cardiac arrest). No further cardiac testing [...] nutrition counseling, exercise counseling and education provided. [place] eye disease of left eye 06/14/2022 08/09/2022 [...] 01/22/20 Assessment & Plan (10/15/2021 3:24 PM TRACK WORKER): Increase metformin to 500mg bid Encouraged heart [...] session. Assessment & Plan (12/10/2021 11:49 AM TRACK WORKER): Discontinue metformin Will initiate topamax 25mg bid for appetite suppression. She was advised that this is an off label utilization and due to concurrent cymbalta she has a risk for serotonin syndrome. She expressed understanding and desire to proceed. She will f/u in 4w for weight management, sooner as needed. Assessment & Plan (10/15/2021 3:24 PM TRACK WORKER): Increase metformin to 500mg bid Encouraged heart healthy diet, exercise 4x/week for 30min each session Assessment & Plan (09/17/2021 1:38 PM TRACK WORKER): Obesity is unchanged. Discussed the patient's BMI. 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 Not on file Not on file Not on file Last Filed Vital Signs Vital Sign Reading Time Taken Comments Blood Pressure 126/60 03/14/2025 8:29 AM CDT Pulse 66 03/14/2025 8:29 AM CDT Temperature 36.9 C (98.4 F) 03/14/2025 8:29 AM CDT Respiratory Rate 18 12/11/2024 9:25 AM TRACK WORKER Oxygen Saturation 96% 03/14/2025 8:29 AM CDT Inhaled Oxygen Concentration - - Weight 69.9 kg (154 lb) 03/14/2025 8:29 AM CDT Height 154.9 cm (5' 1) 03/14/2025 8:29 AM CDT Body Mass Index 29.1 03/14/2025 8:29 AM CDT Plan of Treatment Not on file Medical Devices Implanted Type Area Flat Folding Machine Operator Device Identifier Shelf Expiration Date Model / Serial / Lot [employer] Upsylon 35.4cm Elongation Profile Lightweight Large Pore Low [id number] - [id number] Implanted:Qty: 1 on 02/14/2024 by Lam Munoz MD at [facility] Mesh N/A: Pelvis [employer] 07/30/2026 [id number] / / [id number] [employer] Sling Urinary Incontinence Female Stress Short Desara Blue Antonio-[id number] - [id number] Implanted:Qty: 1 on 02/14/2024 by Lam Munoz MD at [facility] N/A: Pelvis [employer] 07/21/2026 [id number] / / [id number] Procedures Procedure Name Priority Date/Time Associated Diagnosis [...] with diabetes (HCC) COLONOSCOPY 10/15/2024 12:54 PM TRACK WORKER HEPATITIS C ANTIBODY Routine 01/29/2023 11:12 AM [...] AM CDT FASTING:NO FASTING: NO Magdalena Roa DIRECTOR OF HUMAN RESOURCES LAB URINE ORDERABLES Final Re sult Performing Organization Address City/[facility]/ZIP Co de Phone Number [facility] [address] [place] [address] * (ABNORMAL) Hemoglobin A1c (03/01/2025 2:33 PM CDT) Hgb A1C 5.9(H) <5.7 % of total Hgb [facility] - teamwork across global officesMackenzie Liu Comment: For someone without known diabetes, [...] AM CDT FASTING:NO FASTING: NO Magdalena Roa DIRECTOR OF HUMAN RESOURCES LAB BLOOD ORDERABLES Final Re sult [facility] [address] [place] [address] * Comprehensive metabolic panel (03/01/2025 2:33 PM CDT) Glucose 71 65 - 139 mg/dL [facility] - teamwork across global officesMackenzie Liu Comment: Non-fasting reference interval BUN 13 7 - 25 mg/dL Hermann Liu Creatinine 0.73 0.50 - 1.05 mg/dL [...] BLOOD ORDERABLES Final Re sult HERMANN Hermann BanksRehabilitation Hospital Of Southern New MexicoMike [address] [place] [address] * Lipid panel (03/01/2025 2:32 PM CDT) Cholesterol 175 <200 mg/dL Hermann Liu HDL 64 > OR = 50 mg/dL RetewiTamika Liu Triglycerides 91 <150 mg/dL [facility]-Mackenzie Liu LDL 92 mg/dL (calc) RetewiTamika Liu Comment: Reference range: <100 Desirable range <100 mg/dL for primary prevention; <70 mg/dL for patients with CHD or diabetic patients with > or = 2 CHD risk factors. LDL-C is now calculated using the Maryan calculation, which is a validated novel method providing better accuracy than the Friedewald equation in the estimation of LDL-C. Henri SS et al. ODESSA. 2013;310(19): 4189-5429 (http://education.Macheen/faq/TNK532) Chol/HDL ratio 2.7 <5.0 (calc) Hermann Edge TherapeuticsTamika Liu Non-HDL, (LDL+VLDL) 111 <130 mg/dL (calc) RetewiTamika Liu Comment: For patients with diabetes plus 1 major ASCVD risk factor, treating to a non-HDL-C goal of <100 mg/dL (LDL-C of <70 mg/dL) is considered a therapeutic option. Blood 03/01/2025 2:32 PM CDT 03/01/2025 2:32 PM CDT Narrative [facility] - 03/02/2025 1:54 AM CDT FASTING:NO FASTING: NO Magdalena Roa NP LAB BLOOD ORDERABLES Final Re sult Performing Organization Address City/[facility]/ZIP Co de Phone Number [facility] [address] [place] [address] * Portable/Home Sleep Study (01/31/2025 10:36 AM CDT) Eulogio Yost MD SLEEP CENTER ORDERABLES F inal Result [facility] [address] [place] [address] * Basic metabolic panel (01/11/2025 3:52 PM CDT) [facility] Glucose 94 65 - 139 mg/dL Hermann [...] Chloride 104 98 - 110 mmol/L Hermann Liu CO2 29 20 - 32 mmol/L Hermann BanksLanxMackenzie Liu Calcium 9.6 8.6 - 10.4 mg/dL Hermann Liu Blood 01/11/2025 3:52 PM CDT 01/11/2025 3:52 PM CDT Narrative [facility] - 01/12/2025 4:45 AM CDT FASTING:NO FASTING: NO us Nima Jacques DIRECTOR OF HUMAN RESOURCES LAB BLOOD ORDERABLES Fin al Result HERMANN Liu [address] [place] [address] * Colonoscopy (10/15/2024 12:54 PM TRACK WORKER) Anatomical Region Laterality Modality Other Narrative Procedure Note Deshaun West MD - 10/15/2024 12:54 PM [facility] Patient Name: Cira Moreland Procedure Date: 10/15/2024 12:54PM Date of : 1965 Admit Type: Outpatient Age: 59 Gender: Female Attending MD: Deshaun West M.D. Room: [facility] 06 Note Status: Finalized Procedure: [...] The scope was passed under direct vision.The [id number] colonoscope was introduced through theanus and advanced [...] On: 10/15/2024 12:54 PM Recognized by the [employer] for promoting quality [...] 9:36 AM CDT Performed at: - [facility] [address] [id number] Extension Educator: Chace Salvador PhD, Phone: [phone] Magdalena Roa DIRECTOR OF HUMAN RESOURCES LAB MICROBIOLOGY - GENERAL OR DERABLES Final [...] Most Recently Relevant to Health Maintenance Insurance [facility] [place] [address] [address] CHOICE PLUS CHOICE PLUS CHOICE PLUS Advance Directives For more information, please contact: [phone] * Full Code (Latest Code Status on File) Date Activated Date Inactivated Comments 02/14/2024 5:47 PM 02/15/2024 5:57 PM Care Teams Stepdown Nurse Relationship Specialty Start Date End Date Magdalena Roa, DIRECTOR OF HUMAN RESOURCES [address] [facility] [address] [place] [address] PCP - General Internal Medicine 02/04/23
--- OUTSIDE RECORDS SUMMARY | 2025-04-11 18:16 | XMS_ITS | Clinical Summary ---
Author Organization [facility] [facility] Address [address] [place] [address] Care Team Providers Care Photo Checker Name Role Phone Magdalena Roa NP Primary Care Provider [phone] Allergies Active Allergy Reactions Criticality Noted Date [...] 09/03/2024 Assessment & Plan (12/03/2024 12:01 PM HEALTH CARE FACILITIES INSPECTOR): Echocardiogram noted grade 2 LV diastolic dysfunction. Per last note by Dr. Hercules this was reviewed and appreciated to be more indeterminate. Will continue to work on risk factor reduction with weight loss and regular exercise. Assessment & Plan (09/03/2024 11:48 AM HEALTH CARE FACILITIES INSPECTOR): Echocardiogram noted grade 2 LV diastolic dysfunction. [...] 04/19/2021 Assessment & Plan (12/03/2024 12:02 PM HEALTH CARE FACILITIES INSPECTOR): Stress induced chest pain with a negative [...] review. Assessment & Plan (09/03/2024 11:50 AM HEALTH CARE FACILITIES INSPECTOR): Stress induced chest pain with a negative [...] 10/27/2020 Assessment & Plan (10/09/2024 11:42 AM HEALTH CARE FACILITIES INSPECTOR): Discussed the patient's BMI. The BMI is above average. BMI management plan is completed. BMI Follow-up includes: nutrition counseling, exercise counseling and education provided. Snoring 10/27/2020 Assessment & Plan (12/11/2024 9:57 AM HEALTH CARE FACILITIES INSPECTOR): The patient presents with snoring and daytime fatigue. Per her request, I have ordered a home sleep test and she will follow up here in 4 months. Assessment & Plan (10/27/2020 12:47 PM HEALTH CARE FACILITIES INSPECTOR): Will refer for sleep study Sleep disturbance 10/27/2020 Assessment & Plan (10/27/2020 12:47 PM HEALTH CARE FACILITIES INSPECTOR): Will refer for sleep study Breast cancer screening by mammogram 09/10/2020 Assessment & Plan (09/10/2020 11:38 AM HEALTH CARE FACILITIES INSPECTOR): Retrieve records from previous pcp. Hypothyroidism 09/10/2020 Assessment & Plan (04/29/2022 7:17 AM CDT): Continue medication same dosing at this time, refill as needed. Assessment & Plan (01/21/2022 12:40 PM CDT): Labs entered, continue medications the same time Assessment & Plan (05/08/2021 1:15 PM CDT): Fasting labs entered, will notify patient of results as available Assessment & Plan (10/27/2020 12:46 PM HEALTH CARE FACILITIES INSPECTOR): Will repeat labs, continue medication same at this time Assessment & Plan (09/10/2020 11:39 AM HEALTH CARE FACILITIES INSPECTOR): Fasting labs entered, will notify patient of results as available Continue medication same at this time. Vitamin D deficiency 09/10/2020 Assessment & Plan (10/27/2020 12:46 PM HEALTH CARE FACILITIES INSPECTOR): Will repeat labs, continue medication same at this time Assessment & Plan (09/10/2020 11:39 AM HEALTH CARE FACILITIES INSPECTOR): Fasting labs entered, will notify patient of results as available Continue medication same at this time. Hypertension associated with diabetes 09/10/2020 Overview (08/15/2023): Continue blood pressure medicine daily as directed Assessment & Plan (12/03/2024 12:00 PM HEALTH CARE FACILITIES INSPECTOR): Above goal at home. Increase Amlodipine to 10 mg daily. She will keep a blood pressure diary and we will touch base in 1-2 weeks to review. Assessment & Plan (09/03/2024 11:49 AM HEALTH CARE FACILITIES INSPECTOR): She will stop hydrochlorothiazide and we with [...] available Assessment & Plan (09/10/2020 11:39 AM HEALTH CARE FACILITIES INSPECTOR): Fasting labs entered, will notify patient of results as available Continue medication same at this time. Hyperlipidemia 09/10/2020 Assessment & Plan (12/03/2024 12:00 PM HEALTH CARE FACILITIES INSPECTOR): Continue atorvastatin 80 mg daily and zetia 10 mg daily. Planning to repeat with PCP. Assessment & Plan (09/03/2024 11:47 AM HEALTH CARE FACILITIES INSPECTOR): Continue atorvastatin 80 mg daily. Assessment & [...] session Assessment & Plan (09/10/2020 11:39 AM HEALTH CARE FACILITIES INSPECTOR): Fasting labs entered, will notify patient of results as available Continue medication same at this time. Memory changes 09/10/2020 Assessment & Plan (10/03/2020 12:35 PM HEALTH CARE FACILITIES INSPECTOR): We reviewed recent normal mri of head. Advised referral to neurology for further evaluation and treatment. Assessment & Plan (09/10/2020 11:38 AM HEALTH CARE FACILITIES INSPECTOR): Will taper/discontinue wellbutrin. Will order mri of head to evaluate further. Chronic intractable headache 09/10/2020 Assessment & Plan (10/27/2020 12:46 PM HEALTH CARE FACILITIES INSPECTOR): Wants to hold/not schedule neuro referral at this time. Will continue medication the same. Will refer for sleep study. Assessment & Plan (10/03/2020 12:36 PM HEALTH CARE FACILITIES INSPECTOR): We reviewed recent normal mri of head. Advised referral to neurology for further evaluation and treatment. We discussed adding inderal or other daily medication for prevention, patient wants to start with changing the lexapro first. Assessment & Plan (09/10/2020 11:39 AM HEALTH CARE FACILITIES INSPECTOR): Will evaluate further with mri of head Anxiety 09/10/2020 Assessment & Plan (04/29/2022 7:16 AM CDT): We will increase her cymbalta to 90mg daily. She was advised to notify the office over the next 4w - if ineffective will try adding buspar tid. Assessment & Plan (12/10/2021 11:48 AM HEALTH CARE FACILITIES INSPECTOR): Continue with cymbalta 60mg daily Add bid/prn xanax - advised of potential addictiveness, she expressed understanding. We discussed changing cymbalta or adding buspar tid over the coming month if needing xanax routinely. Assessment & Plan (10/15/2021 3:24 PM HEALTH CARE FACILITIES INSPECTOR): Increase cymbalta from 60mg every day to 90mg every day Assessment & Plan (09/17/2021 1:37 PM HEALTH CARE FACILITIES INSPECTOR): Stable, continue meds same at this time Assessment & Plan (05/08/2021 1:17 PM CDT): Will increase cymbalta. Assessment & Plan (10/27/2020 12:46 PM HEALTH CARE FACILITIES INSPECTOR): Continue medication same Assessment & Plan (10/03/2020 12:37 PM HEALTH CARE FACILITIES INSPECTOR): Taper lexapro every other day x 6 days, then discontinue. Will start cymbalta when taper is finished. We discussed gi workup pending resolution of loose stools. Will also retrieve consult notes from previous pcp to determine date and results of last cscope. Assessment & Plan (09/10/2020 11:40 AM HEALTH CARE FACILITIES INSPECTOR): Taper wellbutrin 1 tab every other day [...] nutrition counseling, exercise counseling and education provided. [place] eye disease of left eye 06/14/2022 08/09/2022 [...] 01/22/20 Assessment & Plan (10/15/2021 3:24 PM HEALTH CARE FACILITIES INSPECTOR): Increase metformin to 500mg bid Encouraged heart [...] session. Assessment & Plan (12/10/2021 11:49 AM HEALTH CARE FACILITIES INSPECTOR): Discontinue metformin Will initiate topamax 25mg bid for appetite suppression. She was advised that this is an off label utilization and due to concurrent cymbalta she has a risk for serotonin syndrome. She expressed understanding and desire to proceed. She will f/u in 4w for weight management, sooner as needed. Assessment & Plan (10/15/2021 3:24 PM HEALTH CARE FACILITIES INSPECTOR): Increase metformin to 500mg bid Encouraged heart healthy diet, exercise 4x/week for 30min each session Assessment & Plan (09/17/2021 1:38 PM HEALTH CARE FACILITIES INSPECTOR): Obesity is unchanged. Discussed the patient's BMI. [...] 01/21/2022 Assessment & Plan (09/10/2020 11:38 AM HEALTH CARE FACILITIES INSPECTOR): tdap today Encounters Date Type Department Care Team Description 03/14/2025 8:30 AM CDT Office Visit [facility] Medical Group Internal Medicine at [address] [place] [address] Magdalena Roa, EDWAR Physical exam, annual (Primary Dx); BMI 29.0-29.9,adult; Hypertension associated with diabetes (HCC); Breast cancer screening by mammogram; Vitamin D deficiency; Anxiety; Type 2 diabetes mellitus with hyperlipidemia (HCC); Acquired hypothyroidism; Rash 02/28/2025 Telephone [facility] Internal Medicine at [address] [place] [address] Magdalena Roa, SHIM PLUG CUTTER 02/26/2025 Documentation [facility] Home Care Services [address] [place] [address] [address] [place] [address] Ej Owusu, FIRE ASSISTANT 02/07/2025 Telephone [facility] Family Medicine [address] [place] [address] [address] [place] [address] Magdalena Roa, SHIM PLUG CUTTER 02/07/2025 Telephone [facility] Family Medicine [address] [place] [address] [address] [place] [address] Magdalena Roa SHIM PLUG CUTTER 02/05/2025 Telephone [facility] Sleep Lab [address] [place] [address] Eulogio Yost MD Home sleep study results / cpap order 01/31/2025 10:36 AM CDT - 01/31/2025 11:59 PM CDT Hospital Encounter [facility] Sleep Lab [address] [place] [address] Snoring Discharge Disposition: Discharge to home or self care 01/24/2025 Telephone [facility] Medical Group Family Medicine [address] [place] [address] Magdalena Roa NP 01/14/2025 Results Follow-Up [facility] Cardiology [address] 8[address] [place] [address] [place] [address] Nima Jacques NP Basic metabolic panel 01/09/2025 12:00 PM CDT Clinical Support [facility] Neuro Psychology [address] [place] [address] Jo Villalta, PhD Memory changes [...] on file Legal Sex Female 4:52 AM HEALTH CARE FACILITIES INSPECTOR Gender Identity Not on file Sexual Orientation Not on file 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 on file Not on file Not on file Obstetrics History Last Filed Vital Signs Vital Sign Reading Time Taken Comments Blood Pressure 126/60 03/14/2025 8:29 AM CDT Pulse 66 03/14/2025 8:29 AM CDT Temperature 36.9 C (98.4 F) 03/14/2025 8:29 AM CDT Respiratory Rate 18 12/11/2024 9:25 AM HEALTH CARE FACILITIES INSPECTOR Oxygen Saturation 96% 03/14/2025 8:29 AM CDT [...] history exists Medical Devices Implanted Type Area Mechanical Design Drafter Device Identifier Shelf Expiration Date Model / Serial / Lot Art Scientific Oscar Upsylon 35.4cm Elongation Profile Lightweight Large Pore Low [id number] - [id number] Implanted:Qty: 1 on 02/14/2024 by Lam Munoz MD at [facility] Mesh N/A: Pelvis [employer] Oscar 07/30/2026 [id number] / / [id number] [employer] Sling Urinary Incontinence Female Stress Short Desara Blue Antonio-[id number] - [id number] Implanted:Qty: 1 on 02/14/2024 by Lam Munoz MD at [facility] N/A: Pelvis [employer] 07/21/2026 [id number] / / [id number] Procedures Procedure Name Priority Date/Time Associated Diagnosis [...] with diabetes (HCC) COLONOSCOPY 10/15/2024 12:54 PM HEALTH CARE FACILITIES INSPECTOR HEPATITIS C ANTIBODY Routine 01/29/2023 11:12 AM [...] ORDERABLES Final Re sult [facility] [address] [place] [address] * (ABNORMAL) Hemoglobin A1c (03/01/2025 2:33 PM [...] BLOOD ORDERABLES Final Re sult HERMANN Liu [address] [place] [address] * Comprehensive metabolic panel (03/01/2025 2:33 PM CDT) [facility] Glucose 71 65 - 139 mg/dL [facility] Comment: Non-fasting reference interval BUN 13 7 - 25 mg/dL [facility] Creatinine 0.73 0.50 - 1.05 mg/dL [facility] eGFR 94 > OR = 60 mL/min/1.7 3m2 [facility] BUN/creat ratio SEE NOTE: 6 - 22 (calc) [facility] Comment: Not Reported: BUN and Creatinine are within reference range. Sodium 140 135 - 146 mmol/L [facility] Potassium, pl 3.7 3.5 - 5.3 mmol/L [facility] Chloride 101 98 - 110 mmol/L [facility]ann [facility] Liu CO2 30 20 - 32 mmol/L Hermann [facility] Liu Calcium 9.8 8.6 - 10.4 mg/dL [facility] Protein, sr 7.0 6.1 - 8.1 g/dL [facility] Albumin 4.6 3.6 - 5.1 g/dL [facility] GLOBULIN 2.4 1.9 - 3.7 g/dL (calc) [facility] Alb/glob ratio 1.9 1.0 - 2.5 (calc) [facility] Bilirubin, total 0.5 0.2 - 1.2 mg/dL [facility] Alk phos 111 37 - 153 U/L [facility] AST 16 10 - 35 U/L [facility] ALT (SGPT) 15 6 - 29 U/L [facility] Blood 03/01/2025 2:33 PM CDT 03/01/2025 2:34 PM CDT Narrative [facility] - 03/02/2025 5:22 AM CDT FASTING:NO FASTING: NO Magdalena Roa SHIM PLUG CUTTER LAB BLOOD ORDERABLES Final Re sult Performing Organization Address [facility] Co de Phone Number HERMANN [facility] [address] [place] [address] * Lipid panel (03/01/2025 2:32 PM CDT) [facility] Cholesterol 175 <200 mg/dL [facility] Liu HDL 64 > OR = 50 mg/dL [facility] Liu Triglycerides 91 <150 mg/dL [facility] Liu LDL 92 mg/dL (calc) [facility] Comment: Reference range: <100 Desirable range <100 mg/dL for primary prevention; <70 mg/dL for patients with CHD or diabetic patients with > or = 2 CHD risk factors. LDL-C is now calculated using the Maryan calculation, which is a validated novel method providing better accuracy than the Friedewald equation in the estimation of LDL-C. Henri MAI et al. ODESSA. 2013;310(19): 0360-3955 (http://education.FullContact/faq/LSD700) Chol/HDL ratio 2.7 <5.0 (calc) [facility] Non-HDL, (LDL+VLDL) 111 <130 mg/dL (calc) [facility] Liu Comment: For patients with diabetes plus 1 major ASCVD risk factor, treating to a non-HDL-C goal of <100 mg/dL (LDL-C of <70 mg/dL) is considered a therapeutic option. Blood 03/01/2025 2:32 PM CDT 03/01/2025 2:32 PM CDT Narrative [facility] - 03/02/2025 1:54 AM CDT FASTING:NO FASTING: NO Magdalena Roa SHIM PLUG CUTTER LAB BLOOD ORDERABLES Final Re sult Performing Organization Address [facility]/ZIP Co de Phone Number [facility] [address] [address] * Portable/Home Sleep Study (01/31/2025 10:36 AM CDT) Eulogio Yost MD SLEEP CENTER ORDERABLES F inal Result [facility] SLEEP MEDICINE [address] [place] [address] * Basic metabolic panel (01/11/2025 3:52 PM CDT) Glucose 94 65 - 139 mg/dL [facility] Comment: Non-fasting reference interval BUN 14 7 - 25 mg/dL [facility] Creatinine 0.93 0.50 - 1.05 mg/dL [facility] eGFR 70 > OR = 60 mL/min/1.7 3m2 [facility] BUN/creat ratio SEE NOTE: 6 - 22 (calc) [facility] Comment: Not Reported: BUN and Creatinine are within reference range. Sodium 142 135 - 146 mmol/L [facility] Potassium, pl 4.2 3.5 - 5.3 mmol/L [facility] Chloride 104 98 - 110 mmol/L [facility] CO2 29 20 - 32 mmol/L [facility] Calcium 9.6 8.6 - 10.4 mg/dL [facility] Blood 01/11/2025 3:52 PM CDT 01/11/2025 3:52 PM CDT Narrative [facility] - 01/12/2025 4:45 AM CDT FASTING:NO FASTING: NO us Nima Jacques SHIM PLUG CUTTER LAB BLOOD ORDERABLES Fin al Result cloud.[facility]Mike [address] [place] [address] * Colonoscopy (10/15/2024 12:54 PM HEALTH CARE FACILITIES INSPECTOR) Anatomical Region Laterality Modality Other Narrative Procedure Note Deshaun West MD - 10/15/2024 12:54 PM CST [facility] END[facility] Patient Name: Cira Moreland Procedure Date: 10/15/2024 12:54PM Date of : 1965 Admit Type: Outpatient Age: 59 Gender: Female Attending MD: Deshaun West M.D. Room: [facility] ENDOSCOPY ROOM 06 Note Status: Finalized [...] The scope was passed under direct vision.The [id number] colonoscope was introduced through theanus and advanced [...] On: 10/15/2024 12:54 PM Recognized by the [place] [employer] for promoting quality [...] - 01/30/2023 9:36 AM CDT Performed at: [address] [id number] Chicken Stuffer: Chace Salvador PhD, Phone: [phone] Magdalena Roa NP LAB MICROBIOLOGY - GENERAL OR DERABLES Final Result [facility] - * Diagnostic Mammogram Bilateral W [...] Most Recently Relevant to Health Maintenance Insurance [facility] CHOICE PLUS [facility] CHOICE PLUS Advance Directives For more information, please contact: [phone] * Full Code (Latest Code Status on File) Date Activated Date Inactivated Comments 02/14/2024 5:47 PM 02/15/2024 5:57 PM Care Teams Photo Checker Relationship Specialty Start Date End Date Magdalena Roa NP [address] [address] PCP - General Internal Medicine 02/04/23
--- NOTE | 2025-04-11 18:19 | ED.FALL ---
HPI - Fall General Chief Complaint: Fall <Andrey Loza MD - Last Filed: 04/11/25 18:52> Stated Complaint: fall, head injury <Andrey Loza MD - Last Filed: 04/11/25 18:52> Time Seen by Provider: 04/11/25 17:48 <Andrey Loza MD - Last Filed: 04/11/25 18:52> Source: patient <Andrey Loza MD - Last Filed: 04/11/25 18:52> Mode of arrival: ambulatory <Andrey Loza MD - Last Filed: 04/11/25 18:52> Limitations: no limitations <Andrey Loza MD - Last Filed: 04/11/25 18:52> History of Present Illness HPI Narrative: This is a 59-year-old female with past history of diabetes, presents emergency department after ground level fall. The patient states she was stripping a floor, when she tripped over the cable landing on her left side. She states she struck her head, left elbow and left hip. She complains of 7/10 dull pain. She denies loss of consciousness, weakness/numbness, nausea, vomiting, chest pain, shortness of breath. She denies use of blood thinners and has no other complaints at this time. <Andrey Loza MD - Last Filed: 04/11/25 18:52> Related Data Allergies/Adverse Reactions: Allergies Allergy/AdvReac Type Severity Reaction Status Date / Time Penicillins Allergy Intermediate Swelling Verified 04/11/25 18:58 naproxen AdvReac Nausea Verified 04/11/25 18:58 <Andrey Loza MD - Last Filed: 04/11/25 18:52> Review of Systems Review of Systems: All systems reviewed & are unremarkable except as noted in HPI and below <Andrey Loza MD - Last Filed: 04/11/25 18:52> PMFSH Past Medical History Medical History: Medical History History of diabetes mellitus History of hypothyroidism History of hyperlipidemia History of hypertension <Andrey Loza MD - Last Filed: 04/11/25 18:52> Surgical History Surgical History: Surgical History History of tonsillectomy H/O: hysterectomy <Andrey Loza MD - Last Filed: 04/11/25 18:52> Social History Social History: Social History Smoking status: Never smoker Alcohol intake: current Drinks per week: 1 Substance use: never <Andrey Loza MD - Last Filed: 04/11/25 18:52> Exam Narrative: GENERAL: Well-developed, well-nourished, and in no acute distress. HEAD: Normocephalic, atraumatic. EYES: PERRLA and EOMI. ENT: Nares clear, no rhinorrhea or epistaxis. Mucous membranes moist. Oropharynx without tonsillar hypertrophy exudate or other lesions. NECK: Supple. No midline spine tenderness to palpation, no step-off or crepitus CHEST: Clear to auscultation. No respiratory distress. No wheezes rales or rhonchi HEART: Regular rate and rhythm. No murmur heard. Normal peripheral pulses. BACK: No midline spine tenderness to palpation, no step-off or crepitus. Mild left paraspinal muscle tenderness to palpation at approximately L4-S1 ABDOMEN: Soft, nontender, nondistended, normal active bowel sounds. EXTREMITIES: Mild abrasion noted over the dorsal aspect of the left elbow with out significant tenderness, step-off or crepitus. Normal range of motion of all extremities. No edema. SKIN: Warm, dry, no rash. NEURO: Alert and oriented x3. No focal deficit. Moving all 4 limbs spontaneously PSYCH: Normal mood and affect. <Andrey Loza MD - Last Filed: 04/11/25 18:52> Course Course Emergency Course: 18:00 - Patient signed out to oncoming ED physician, Dr. Coelho pending imaging with plan for discharge. <Andrey Loza MD - Last Filed: 04/11/25 18:52> 18:00 - Patient signed out to oncoming ED physician, Dr. Coelho pending imaging with plan for discharge. 2049: Imaging returned. Concern for superior endplate fracture of the C-spine at C5/C6. Discussed with Dr. Forbes with neurosurgery. Recommends cervical immobilization follow up in clinic for outpatient MRI. Patient verbalized understanding diagnosis and treatment plan. <Krishna Coelho MD - Last Filed: 04/11/25 20:53> Vital Signs Vital signs: Vital Signs Temperature 97.8 F 04/11/25 17:49 Pulse Rate 75 04/11/25 17:49 Respiratory Rate 18 04/11/25 17:49 Blood Pressure 155/65 H 04/11/25 17:49 Pulse Oximetry 100 04/11/25 17:49 Oxygen Delivery Room Air 04/11/25 17:49 Temperature 97.8 F 04/11/25 17:49 Pulse Rate 73 04/11/25 19:33 Respiratory Rate 16 04/11/25 19:33 Blood Pressure 140/64 04/11/25 19:33 Pulse Oximetry 97 04/11/25 19:33 Oxygen Delivery Room Air 04/11/25 17:49 <Andrey Loza MD - Last Filed: 04/11/25 18:52> Vital Signs Temperature 97.8 F 04/11/25 17:49 Pulse Rate 75 04/11/25 17:49 Respiratory Rate 18 04/11/25 17:49 Blood Pressure 155/65 H 04/11/25 17:49 Pulse Oximetry 100 04/11/25 17:49 Oxygen Delivery Room Air 04/11/25 17:49 Temperature 97.8 F 04/11/25 17:49 Pulse Rate 73 04/11/25 19:33 Respiratory Rate 16 04/11/25 19:33 Blood Pressure 140/64 04/11/25 19:33 Pulse Oximetry 97 04/11/25 19:33 Oxygen Delivery Room Air 04/11/25 17:49 <Krishna Coelho MD - Last Filed: 04/11/25 20:53> MDM - Fall MDM Narrative Medical decision making narrative: Plan: Imaging, pain control, reassess <Andrey Loza MD - Last Filed: 04/11/25 18:52> Differential Diagnosis Differential diagnosis: Likely other (Skull fracture, intracranial hemorrhage, cervical spine fracture, contusion, elbow fracture, other) <Andrey Loza MD - Last Filed: 04/11/25 18:52> Imaging Data Radiologist's impression: ITS Impressions Pelvis X-Ray 04/11/25 18:51 IMPRESSION: No acute osseous abnormality pelvis. Elbow X-Ray 04/11/25 18:52 IMPRESSION: No acute osseous abnormality left elbow. Head CT 04/11/25 19:12 IMPRESSION: No acute intracranial findings. Cervical Spine CT 04/11/25 20:20 IMPRESSION: . Slight loss of height of C6 and C7 which may be acute or chronic. MRI evaluation advised. Otherwise, no definite acute osseous abnormality seen in the cervical spine. Multilevel degenerative disc disease. <Krishna Coelho MD - Last Filed: 04/11/25 20:53> Discharge Plan Discharge Clinical Impression: Cervical spine fracture Contusion of elbow, left Qualifiers: Encounter type: initial encounter Qualified Code(s): S50.02XA - Contusion of left elbow, initial encounter Concussion Qualifiers: Encounter type: initial encounter Loss of consciousness presence/duration: without LOC Qualified Code(s): S06.0X0A - Concussion without loss of consciousness, initial encounter Contusion of lower back Qualifiers: Encounter type: initial encounter Qualified Code(s): S30.0XXA - Contusion of lower back and pelvis, initial encounter <Andrey Loza MD - Last Filed: 04/11/25 18:52> Patient Disposition: Home <Andrey Loza MD - Last Filed: 04/11/25 18:52> Condition: Stable <Andrey Loza MD - Last Filed: 04/11/25 18:52> Instructions: Antibiotic Form, Concussion (ED), Contusion in Adults (ED) <Andrey Loza MD - Last Filed: 04/11/25 18:52> Additional Instructions: You were seen in the emergency department. X-rays and CTs were not concerning for bleeding in the brain, skull fracture, neck fracture, fracture of the elbow or low back/pelvis fracture. I recommend Tylenol, ibuprofen, lidocaine patches, icing and rest. I recommend following up with your primary care doctor. If you develop persistent vomiting, weakness/numbness, change/loss of vision/hearing, or if you have other emergent concerns for life, limb, or eyesight, return to the emergency department. You may take your cervical collar off to shower but otherwise you should wear it at all times. <Andrey Loza MD - Last Filed: 04/11/25 18:52> Patient Language: Hungarian <Andrey Loza MD - Last Filed: 04/11/25 18:52> Prescriptions: New lidocaine 5 % adhesive patch,medicated 1 patch topical DAILY Qty: 30 0RF Rx Instructions: leave on most painful area for up to 12 hrs No Action methylprednisolone 4 mg tablets,dose pack See Rx Instructions .ROUTE .COMPLEX Qty: 21 0RF Rx Instructions: orally per package directions valacyclovir 1 gram tablet 1,000 mg PO Q8H 7 Days Qty: 21 0RF <Andrey Loza MD - Last Filed: 04/11/25 18:52> Follow-up/Referrals: Fairsam,EDWAR Nichols [Primary Care Provider] - 2 Weeks Bryn Forbes MD [Physician] - 1 Week <Andrey Loza MD - Last Filed: 04/11/25 18:52>
[2025-04-11] MEDS: ACETAMINOPHEN 500 MG TABLET 1000 MG PO (18:52)
[2025-04-11 19:33] VITALS: BP 140/64; PULSE 73; RESP 16; O2SAT 97
--- NOTE | 2025-04-11 19:33 | PC.NURSE ---
Received report from NEFTALI Connell for cont. of care. PT lying on stretcher, respirations even and unlabored. Pt provided with an update on plan of care. Per pt pain medication effective.
--- NOTE | 2025-04-11 21:15 | PC.NURSE ---
C-Collar applied to pt and educated on placement.
[2025-04-11 21:20] VITALS: BP 155/61; PULSE 68; RESP 16; O2SAT 96
== END 2025-04-11 21:33 | disposition home or self-care (01) ==
PROVIDERS: Emergency Provider Preventive Medicine Aerospace Medicine; PCP Nurse Practitioner Family
DX: S06.0X0A Concussion without loss of consciousness, initial encounter (principal); S50.02XA Contusion of left elbow, initial encounter; S30.0XXA Contusion of lower back and pelvis, initial encounter; S12.400A Unspecified displaced fracture of fifth cervical vertebra, initial encounter for closed fracture; S12.500A Unspecified displaced fracture of sixth cervical vertebra, initial encounter for closed fracture; I10 Essential (primary) hypertension; E11.9 Type 2 diabetes mellitus without complications; E03.9 Hypothyroidism, unspecified; E78.5 Hyperlipidemia, unspecified; Z90.710 Acquired absence of both cervix and uterus; M50.31 Other cervical disc degeneration, high cervical region; W18.09XA Striking against other object with subsequent fall, initial encounter
CPT/HCPCS: 70450; 72125; 72170; 73080; 99284; A9270; L0140

== ENCOUNTER 2025-09-10 12:06 | Outpatient (CLI) | payer OTHER, SELFPAY ==
--- NOTE | 2025-09-10 | ECG_ITS ---
Test Date: 2025-09-10 12:58:21 Measurements Intervals [place] Rate: 62 P: 52 FL: 134 QRS: 44 QRSD: 74 T: 59 QT: 396 QTc: 404 Interpretive Statements SINUS RHYTHM LOW QRS VOLTAGE IN PRECORDIAL LEADS [QRS DEFLECTION < 1.0 mV IN CHEST LEADS] No previous ECG available for comparison Electronically Signed On 09-10-2025 18:00:14 [employer] by Nima Yi M.D.
--- NOTE | ~2025-09-10 | XR_ITS ---
Examination: XR chest 2V Clinical History: pre-op testing Comparison: 05/09/2021 Technique: PA and Lateral Findings: Cardiomediastinal silhouette normal size and configuration. Lungs clear. No acute bony abnormality. IMPRESSION: 1. No acute cardiopulmonary findings. Reviewed, dictated and finalized at location R. [facility] DEVELOPMENT
--- OUTSIDE RECORDS SUMMARY | 2025-09-10 12:21 | XMS_ITS | Encounter Summary ---
Author Organization [facility] Healthcare Address [address] [place] [address] Care Team Providers Care Shell Freezing Machine Operator Name Role Phone Magdalena Roa NP Primary Care Provider [phone] Encounter Details Date Type Department Care Team (Late Contact Info) Description 08/07/2025 Results Follow-Up [facility] Family Medicine [address] [place] [address] Magdalena Roa NP [address] [facility] [address] [address] [place] [address] TSH Social History Tobacco Use Types Packs/Day Years [...] on file Legal Sex Female 4:52 AM [employer] Gender Identity Not on file Sexual Orientation Not on file 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
--- OUTSIDE RECORDS SUMMARY | 2025-09-10 12:21 | XMS_ITS | Clinical Summary ---
Author Organization [facility] [address] [facility] Address [address] [place] [address] Care Team Providers Care Spinneret Cleaner Name Role Phone Magdalena Roa NP Primary Care Provider [phone] Allergies Active Allergy Reactions Criticality Noted Date Comments Venom-Honey Bee Other (See comments) Low 09/03/2024 Blood poisoning Latex Blisters High 10/15/2024 Naproxen Nausea & Vomiting Low 10/05/2024 Penicillins Swelling Medium 09/10/2020 Medications nitroglycerin (NITROSTAT) 0.[address] 1 tablet (0.4 mg total) under the tongue daily as needed for chest pain 30 tablet 1 05/31/[address] (CYMBALTA) 60 mg capsuleIndication s:Anxiety Take 1 capsule (60 mg total) by mouth daily 90 capsule 3 09/11/20 24 Active sertraline (ZOLOFT) 25 mg tabletIndications :Anxiety Take 1 tablet (25 mg total) by mouth daily 90 tablet 3 02/27/20 25 026 Active ergocalciferol (VITAMIN D) 50,000 unit capsuleIndication s:Vitamin D deficiency Take 1 capsule (50,000 Units total) by mouth once a week 12 capsule 1 03/14/[address] (CYMBALTA) 30 mg capsuleIndication s:Anxiety Take 1 capsule (30 mg total) by mouth daily 90 capsule 1 03/14/20 25 Active ezetimibe (ZETIA) 10 mg tabletIndications :Type 2 diabetes mellitus with hyperlipidemia (HCC) Take 1 tablet (10 mg total) by mouth daily 90 tablet 1 03/14/20 25 Active atorvastatin (LIPITOR) 80 mg tabletIndications :Type 2 diabetes mellitus with hyperlipidemia (HCC) Take 0.5 tablets (40 mg total) by mouth daily 90 tablet 1 03/14/20 25 Active levothyroxine (SYNTHROID) 50 mcg tabletIndications :Acquired hypothyroidism Take 1 tablet (50 mcg total) by mouth daily 90 tablet 3 03/14/20 25 Active hydroCHLOROthiazi de (MICROZIDE) 12.5 mg capsule Take 1 capsule (12.5 mg total) by mouth every morning 90 capsule 3 03/14/20 25 Active nystatin powderIndications :Rash Apply topically 4 (four) times a day 15 g 03/14/20 026 Active Additional Information Patient not taking.Reported on 06/05/2025 lidocaine (LIDODERM) 5 % APPLY 1 TOPICALLY ONCE DAILY LEAVE ON MOST PAINFUL AREA FOR UP TO 12 HOURS 04/12/20 Active amLODIPine (NORVASC) 10 mg tablet Take 1 tablet (10 mg total) by mouth daily 90 tablet 3 06/05/20 25 026 Active losartan (COZAAR) 25 mg tablet Take 1 tablet (25 mg total) by mouth daily 90 tablet 3 06/12/20 25 Active semaglutide (Ozempic) 1 mg/dose (4 mg/3 mL) pen injector injectionIndicati ons:Type 2 diabetes mellitus with hyperlipidemia (HCC) Inject 1 mg under the skin every 7 days 9 mL 09/09/20 25 Active semaglutide (Ozempic) 1 mg/dose (4 mg/3 mL) pen injector injectionIndicati ons:Type 2 diabetes mellitus with hyperlipidemia (HCC) INJECT 1MG SUBCUTANEOUSLY ONCE A WEEK 9 mL 03/14/20 25 025 Chelo lopes(Elbert wiley) Active Problems Problem Noted Date Diagnosed Date Obstructive sleep apnea 04/12/2025 Assessment & Plan (04/12/2025 11:05 AM CDT): Patient continue to wear her CPAP at auto titrating range of 5-15 cm water pressure while sleeping. Her DME is [facility] home care. I did order a mask refit due to the patient being fitted with her dentures in. The patient will not be able to wear her CPAP for a period of time due to having a neck brace on. I did ask the patient to use positional therapy. Abnormal CBC 10/10/2024 Overview (10/10/2024): Have lab work completed Physical exam, annual 10/10/2024 Dysuria 10/09/2024 Overview (10/09/2024): no blood in urine. blood has cleared up. Cough with exposure to sever e acute respiratory syndrome coronavirus 2 (SARS-CoV-2) 10/09/2024 Eye swelling, left 09/11/2024 Echocardiogram abnormal 09/03/2024 Assessment & Plan (12/03/2024 12:01 PM MANAGER STONE): Echocardiogram noted grade 2 LV diastolic dysfunction. Per last note by Dr. Hercules this was reviewed and appreciated to be more indeterminate. Will continue to work on risk factor reduction with weight loss and regular exercise. Assessment & Plan (09/03/2024 11:48 AM MANAGER STONE): Echocardiogram noted grade 2 LV diastolic dysfunction. [...] 04/19/2021 Assessment & Plan (12/03/2024 12:02 PM MANAGER STONE): Stress induced chest pain with a negative [...] review. Assessment & Plan (09/03/2024 11:50 AM MANAGER STONE): Stress induced chest pain with a negative [...] 10/27/2020 Assessment & Plan (10/09/2024 11:42 AM MANAGER STONE): Discussed the patient's BMI. The BMI is above average. BMI management plan is completed. BMI Follow-up includes: nutrition counseling, exercise counseling and education provided. Snoring 10/27/2020 Assessment & Plan (12/11/2024 9:57 AM MANAGER STONE): The patient presents with snoring and daytime fatigue. Per her request, I have ordered a home sleep test and she will follow up here in 4 months. Assessment & Plan (10/27/2020 12:47 PM MANAGER STONE): Will refer for sleep study Sleep disturbance 10/27/2020 Assessment & Plan (10/27/2020 12:47 PM MANAGER STONE): Will refer for sleep study Breast cancer screening by mammogram 09/10/2020 Assessment & Plan (09/10/2020 11:38 AM MANAGER STONE): Retrieve records from previous pcp. Hypothyroidism 09/10/2020 Assessment & Plan (04/29/2022 7:17 AM CDT): Continue medication same dosing at this time, refill as needed. Assessment & Plan (01/21/2022 12:40 PM CDT): Labs entered, continue medications the same time Assessment & Plan (05/08/2021 1:15 PM CDT): Fasting labs entered, will notify patient of results as available Assessment & Plan (10/27/2020 12:46 PM MANAGER STONE): Will repeat labs, continue medication same at this time Assessment & Plan (09/10/2020 11:39 AM MANAGER STONE): Fasting labs entered, will notify patient of results as available Continue medication same at this time. Vitamin D deficiency 09/10/2020 Assessment & Plan (10/27/2020 12:46 PM MANAGER STONE): Will repeat labs, continue medication same at this time Assessment & Plan (09/10/2020 11:39 AM MANAGER STONE): Fasting labs entered, will notify patient of results as available Continue medication same at this time. Hypertension associated with diabetes 09/10/2020 Overview (08/15/2023): Continue blood pressure medicine daily as directed Assessment & Plan (12/03/2024 12:00 PM MANAGER STONE): Above goal at home. Increase Amlodipine to 10 mg daily. She will keep a blood pressure diary and we will touch base in 1-2 weeks to review. Assessment & Plan (09/03/2024 11:49 AM MANAGER STONE): She will stop hydrochlorothiazide and we with [...] available Assessment & Plan (09/10/2020 11:39 AM MANAGER STONE): Fasting labs entered, will notify patient of results as available Continue medication same at this time. Hyperlipidemia 09/10/2020 Assessment & Plan (12/03/2024 12:00 PM MANAGER STONE): Continue atorvastatin 80 mg daily and zetia 10 mg daily. Planning to repeat with PCP. Assessment & Plan (09/03/2024 11:47 AM MANAGER STONE): Continue atorvastatin 80 mg daily. Assessment & [...] session Assessment & Plan (09/10/2020 11:39 AM MANAGER STONE): Fasting labs entered, will notify patient of results as available Continue medication same at this time. Memory changes 09/10/2020 Assessment & Plan (10/03/2020 12:35 PM MANAGER STONE): We reviewed recent normal mri of head. Advised referral to neurology for further evaluation and treatment. Assessment & Plan (09/10/2020 11:38 AM MANAGER STONE): Will taper/discontinue wellbutrin. Will order mri of head to evaluate further. Chronic intractable headache 09/10/2020 Assessment & Plan (10/27/2020 12:46 PM MANAGER STONE): Wants to hold/not schedule neuro referral at this time. Will continue medication the same. Will refer for sleep study. Assessment & Plan (10/03/2020 12:36 PM MANAGER STONE): We reviewed recent normal mri of head. Advised referral to neurology for further evaluation and treatment. We discussed adding inderal or other daily medication for prevention, patient wants to start with changing the lexapro first. Assessment & Plan (09/10/2020 11:39 AM MANAGER STONE): Will evaluate further with mri of head Anxiety 09/10/2020 Assessment & Plan (04/29/2022 7:16 AM CDT): We will increase her cymbalta to 90mg daily. She was advised to notify the office over the next 4w - if ineffective will try adding buspar tid. Assessment & Plan (12/10/2021 11:48 AM MANAGER STONE): Continue with cymbalta 60mg daily Add bid/prn xanax - advised of potential addictiveness, she expressed understanding. We discussed changing cymbalta or adding buspar tid over the coming month if needing xanax routinely. Assessment & Plan (10/15/2021 3:24 PM MANAGER STONE): Increase cymbalta from 60mg every day to 90mg every day Assessment & Plan (09/17/2021 1:37 PM MANAGER STONE): Stable, continue meds same at this time Assessment & Plan (05/08/2021 1:17 PM CDT): Will increase cymbalta. Assessment & Plan (10/27/2020 12:46 PM MANAGER STONE): Continue medication same Assessment & Plan (10/03/2020 12:37 PM MANAGER STONE): Taper lexapro every other day x 6 days, then discontinue. Will start cymbalta when taper is finished. We discussed gi workup pending resolution of loose stools. Will also retrieve consult notes from previous pcp to determine date and results of last cscope. Assessment & Plan (09/10/2020 11:40 AM MANAGER STONE): Taper wellbutrin 1 tab every other day [...] (3.9 % thirty day risk of , MT or cardiac arrest). No further cardiac testing [...] nutrition counseling, exercise counseling and education provided. [place] eye disease of left eye 06/14/2022 08/09/2022 [...] 22 Assessment & Plan (10/15/2021 3:24 PM MANAGER STONE): Increase metformin to 500mg bid Encouraged heart [...] session. Assessment & Plan (12/10/2021 11:49 AM MANAGER STONE): Discontinue metformin Will initiate topamax 25mg bid for appetite suppression. She was advised that this is an off label utilization and due to concurrent cymbalta she has a risk for serotonin syndrome. She expressed understanding and desire to proceed. She will f/u in 4w for weight management, sooner as needed. Assessment & Plan (10/15/2021 3:24 PM MANAGER STONE): Increase metformin to 500mg bid Encouraged heart healthy diet, exercise 4x/week for 30min each session Assessment & Plan (09/17/2021 1:38 PM MANAGER STONE): Obesity is unchanged. Discussed the patient's BMI. [...] 01/21/2022 Assessment & Plan (09/10/2020 11:38 AM MANAGER STONE): tdap today Encounters Date Type Department Care Team Description 09/09/2025 Telephone [facility] [address] [place] [address] Magdalena Roa NP 08/23/2025 Telephone [facility] Medicine [address] [place] [address] Magdalena Roa NP 08/07/2025 Results Follow-Up [facility] [address] [place] [address] Magdalena Roa FLESHING MACHINE OPERATOR TSH 06/12/2025 Telephone [facility] Cardiology [address] [place] [address] [place] [id number] Sherif Hercules MD from Last 3 Months Immunizations Immunization Administration [...] Maternal Grandfather Maternal Grandmother Mother Sister 1 briseiad Sister 2 tk Alive Sister 3 marcus [...] file Legal Sex Female 4:52 AM MANAGER STONE Gender Identity Not on file Sexual Orientation Not on file 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 Not on file Not on file Last Filed Vital Signs Vital Sign Reading Time Taken Comments Blood Pressure 132/69 06/05/2025 12:01 PM CDT Pulse 67 06/05/2025 12:01 PM CDT Temperature 36.2 C (97.2 F) 04/12/2025 10:24 AM CDT Respiratory Rate 14 04/12/2025 10:24 AM CDT Oxygen Saturation 98% 06/05/2025 12:01 PM CDT Inhaled Oxygen Concentration - - Weight 71.3 kg (157 lb 3.2 oz) 06/05/2025 12:01 PM CDT Height 154.9 cm (5' 1) 06/05/2025 12:01 PM CDT Body Mass Index 29.7 06/05/2025 12:01 PM CDT Plan of Treatment Health Maintenance Due Date Last Done Comments Dilated Eye Exam 1965 Foot Exam 1965 Hepatitis B Screening 1981 Pneumococcal vaccine <65 (1 of 2 - PCV) 1982 Zoster Vaccine (1 of 2) 2013 Breast Cancer Screening-Mammogram 09/05/2024 023, 04/17/2021 Covid-19 Vaccine (4 - 2024-2 6 season) 2025 10/07/2021, 01/10/2021, 12/13/2020 Influenza Vaccine (#1) 2025 , 08/15/2023, 09/17/2021, Additional history exists Hemoglobin A1C 09/01/2025 03/01/2025, 07/31, 12/29/2023, Additional history exists Albumin Creatinine Ratio, Urine 03/01/2026 03/01/2025, 08/13/2024, 12/29/2023 Lipid Panel 03/01/2026 03/01/2025, 07/31, 12/29/2023, Additional history exists Depression Screening 03/14/2026 03/14/2025, 10/09/2024, 09/11/2024, Additional history exists Regular Well Visit/Exam 18-64 03/14/2026, 02/10/2024, 12/28/2022 eGFR 08/06/2026 08/06/2025, 05/12/2024, 01/11/2025, Additional history exists DTaP/Tdap/Td Vaccine (2 - Td or Tdap) 09/10/2030 09/10/2020, 12/05/1998 Colon Cancer Screening-Colonoscopy 10/15/20342023, 03/19/2014 Hepatitis C Screening Completed 01/29/2023 Medical Devices Implanted Type Area Forming And Assembling Supervisor Device Identifier Shelf Expiration Date Model / Serial / Lot YottaMark Oscar Upsylon 35.4cm Elongation Profile Lightweight Large Pore Low [id number] - [id number] Implanted:Qty: 1 on 02/14/2024 by Lam Munoz MD at [facility] Mesh N/A: Pelvis [employer] Oscar 07/30/2026 [id number] / / [id number] [employer] Sling Urinary Incontinence Female Stress Short Desara Blue [id number] - [id number] Implanted:Qty: 1 on 02/14/2024 by Lam Munoz MD at [facility] N/A: Pelvis [employer] 07/21/2026 [id number] / / [id number] Procedures Procedure Name Priority Date/Time Associated Diagnosis Comments BASIC METABOLIC PANEL Routine 08/06/2025 12:23 PM CDT Primary hypertension TSH Routine 08/06/2025 12:20 PM CDT Acquired hypothyroidism HEMOGLOBIN A1C Routine 03/01/2025 2:33 PM CDT Type 2 diabetes mellitus with hyperlipidemia (HCC) ALBUMIN CREATININE RATIO, URINE Routine 03/01/2025 2:33 PM CDT Type 2 diabetes mellitus with hyperlipidemia (HCC) LIPID PANEL Routine 03/01/2025 2:32 PM CDT Type 2 diabetes mellitus with hyperlipidemia (HCC) COLONOSCOPY 10/15/2024 12:54 PM MANAGER STONE HEPATITIS C ANTIBODY Routine 01/29/2023 11:12 AM CDT Encounter for hepatitis C screening test for low risk patient DIAGNOSTIC MAMMOGRAM BILATERAL W GERSON Schedule Routine, Read Routine (OP Routine) 04/17/2021 9:58 AM CDT Breast pain in female from Last 3 Months or Most Recently Relevant to Health Maintenance Results * Basic metabolic panel (08/06/2025 12:23 PM CDT) Glucose 84 65 - 99 mg/dL [facility] Comment: Fasting reference interval BUN 16 7 - 25 mg/dL [facility] Aron Liu Creatinine 0.69 0.50 - 1.05 mg/dL [facility] kiersten Liu eGFR 98 > OR = 60 mL/min/1.7 3m2 [facility] BUN/creat ratio SEE NOTE: (calc) [facility] Comment: Not Reported: BUN and Creatinine are within reference range. Sodium 139 135 - 146 mmol/L [facility] Potassium, pl 3.8 3.5 - 5.3 mmol/L [facility] Chloride 100 98 - 110 mmol/L [facility] CO2 31 20 - 32 mmol/L [facility] Calcium 9.4 8.6 - 10.4 mg/dL [facility] Blood 08/06/2025 12:2 3 PM CDT 08/06/2025 12:24 PM CDT Narrative [facility] - 08/07/2025 12:12 AM CDT FASTING:YES FASTING: YES Nima Jacques FLESHING MACHINE OPERATOR LAB BLOOD ORDERABLES Fin al Result Performing Organization Address City/[facility] Co de Phone Number [facility] [address] [place] [address] * TSH (08/06/2025 12:20 PM CDT) Pathologist [facility] TSH 1.14 0.40 - 4.50 mIU/L [facility] Blood 08/06/2025 12:2 0 PM CDT 08/06/2025 12:22 PM CDT Narrative [facility] - 08/07/2025 12:32 AM CDT FASTING:YES FASTING: YES Magdalena Roa FLESHING MACHINE OPERATOR LAB BLOOD ORDERABLES Final Re sult Performing Organization Address [facility] Co de Phone Number [facility] [address] [place] [address] * Albumin Creatinine Ratio, Urine (03/01/2025 2:33 [...] AM CDT FASTING:NO FASTING: NO Magdalena Roa LAB URINE ORDERABLES Final Re sult Performing Organization Address [facility]/ZIP Co de Phone Number [facility] [address] [place] [address] * (ABNORMAL) Hemoglobin A1c (03/01/2025 2:33 PM CDT) Hgb A1C 5.9(H) <5.7 % of total Hgb [facility] Comment: For someone without known diabetes, [...] AM CDT FASTING:NO FASTING: NO Magdalena Roa FLESHING MACHINE OPERATOR LAB BLOOD ORDERABLES Final Re sult [facility] [address] [place] [address] * Lipid panel (03/01/2025 2:32 PM CDT) Cholesterol 175 <200 mg/dL [facility] HDL 64 > OR = 50 mg/dL [facility] burch Noe Triglycerides 91 <150 mg/dL Hermann [facility]Mackenzie Liu LDL 92 mg/dL (calc) Hermann BanksCamp[facility]Mackenzie Liu Comment: Reference range: <100 Desirable range <100 mg/dL for primary prevention; <70 mg/dL for patients with CHD or diabetic patients with > or = 2 CHD risk factors. LDL-C is now calculated using the Maryan calculation, which is a validated novel method providing better accuracy than the Friedewald equation in the estimation of LDL-C. Henri SS et al. ODESSA. 2013;310(04): 7093-1807 (http://education.[employer]/faq/UJQ039) Chol/HDL ratio 2.7 <5.0 (calc) [facility] burch Noe Non-HDL, (LDL+VLDL) 111 <130 mg/dL (calc) [facility] burch Noe Comment: For patients with diabetes plus 1 major ASCVD risk factor, treating to a non-HDL-C goal of <100 mg/dL (LDL-C of <70 mg/dL) is considered a therapeutic option. Blood 03/01/2025 2:32 PM CDT 03/01/2025 2:32 PM CDT Narrative [facility] - 03/02/2025 1:54 AM CDT FASTING:NO FASTING: NO Magdalena Roa NP LAB BLOOD ORDERABLES Final Re sult [facility] [address] [place] [address] * Colonoscopy (10/15/2024 12:54 PM MANAGER STONE) Anatomical Region Laterality Modality Other Narrative Procedure Note Deshaun West MD - 10/15/2024 12:54 PM CST [facility] GI ENDOSCOPY Patient Name: Cira Moreland Procedure Date: 10/15/2024 12:54PM Date of : 1965 Admit Type: Outpatient Age: 59 Gender: Female Attending MD: Deshaun West M.D. Room: [facility] ENDOSCOPY ROOM 06 Note Status: Finalized [...] The scope was passed under direct vision.The [id number] colonoscope was introduced through theanus and advanced [...] On: 10/15/2024 12:54 PM Recognized by the [employer] for promoting quality [...] - 01/30/2023 9:36 AM CDT Performed at: [address] [id number] Loss Prevention Manager: Chace Salvador PhD, Phone: [phone] us Magdalena Roa NP LAB MICROBIOLOGY - GENERAL OR DERABLES Final Result [facility] - * Diagnostic Mammogram Bilateral W Gerson [...] Most Recently Relevant to Health Maintenance Insurance [facility] CHOICE PLUS [facility] HMO/PPO Address: [facility] [address] [place] [address] [facility]/PPO Address: [address] [place] [id number] [facility] HMO/PPO Address: [address] [place], [place] [phone] [facility] HMO/PPO Address: [address] [address] [place] [address] Advance Directives For more information, please contact: [phone] * Full Code (Latest Code Status on File) Date Activated Date Inactivated Comments 02/14/2024 5:47 PM 02/15/2024 5:57 PM Care Teams Spinneret Cleaner Relationship Specialty Start Date End Date Magdalena Roa NP [address] [phone] PCP - General Internal Medicine 02/04/23
--- OUTSIDE RECORDS SUMMARY | 2025-09-10 12:21 | XMS_ITS | Encounter Summary ---
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 Gender Identity Not on file Sexual Orientation Not on file 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 ER FLOATER documented in this encounter Plan of Treatment Not on file documented as of this encounter Visit Diagnoses Diagnosis Type 2 diabetes mellitus with hyperlipidemia (HCC) documented in this encounter Discontinued Medications Medication Sig Discontinue Reason Start Date End Da te semaglutide (Ozempic) 1 mg/dose (4 mg/3 mL) pen injector injectionIndications:T ype 2 diabetes mellitus with hyperlipidemia (HCC) INJECT 1MG SUBCUTANEOUSLY ONCE A WEEK Reorder 03/14/2025 09/09/2025 documented as of this encounter Care Teams Camera Machinist Relationship Specialty Start Date End Date Magdalena Roa NP [address] [facility] [address] [place] [address] PCP - General Internal Medicine 02/04/23 documented as of this encounter
--- OUTSIDE RECORDS SUMMARY | 2025-09-10 12:21 | XMS_ITS | Encounter Summary ---
Author Organization [facility] Healthcare Address [address] [place] [address] Care Team Providers Care Crimping Press Operator Name Role Phone Magdalena Roa NP Primary Care Provider [phone] Encounter Details Date Type Department Care Team (Late st Contact Info) Description 04/11/2025 Orders Only [facility] Health Information Management [address] [place] [address] Scanning, Provider Social History Tobacco Use Types Packs/Day Years [...] on file Legal Sex Female 4:52 AM ATHLETIC SCOUT Gender Identity Not on file Sexual Orientation Not on file 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 file Not on file Not on file documented as of this encounter Functional Status documented as of this encounter Plan of Treatment Not on file documented as of this encounter Procedures Procedure Name Priority Date/Time Associated Diagnosis Comments SCAN - RADIOLOGY/IMAGING 04/11/2025 documented in this encounter Results * SCAN - RADIOLOGY/IMAGING (04/11/2025) Anatomical Region Laterality Modality Other us Provider Scanning Final Result documented in this encounter Visit Diagnoses Not on filedocumented in this encounter Care Teams Crimping Press Operator Relationship Specialty Start Date End Date Magdalena Roa, EDWAR [address] [facility] [address] [place] [address] PCP - General Internal Medicine 02/04/23 documented as of this encounter
== END 2025-09-10 12:07 | disposition home or self-care (01) ==
PROVIDERS: PCP Nurse Practitioner Family
DX: Z01.811 Encounter for preprocedural respiratory examination (principal); Z01.810 Encounter for preprocedural cardiovascular examination
CPT/HCPCS: 71046; 93005